=== PATIENT | male | born 1975 | race American Indian/Alaskan Native ===

== ENCOUNTER 2016-04-23 09:07 | Outpatient (CLI) | payer MEDICAID ==
[2016-04-23] MEDS ORDERED: XYLOCAINE TOPICAL 4% TP ONE ×2 (09:15→13:00)
== END 2016-04-23 09:08 | disposition home or self-care (01) ==
LOC: WOUND 09:07
PROVIDERS: ATTEND Internal Medicine
DX: L73.2 Hidradenitis suppurativa (principal); E11.9 Type 2 diabetes mellitus without complications; I10 Essential (primary) hypertension
CPT/HCPCS: 99215; G0463

== ENCOUNTER 2016-04-30 12:57 | Outpatient (CLI) | payer MEDICAID ==
[2016-04-30] MEDS ORDERED: XYLOCAINE TOPICAL 4% TP ONE (13:04)
== END 2016-04-30 12:58 | disposition home or self-care (01) ==
LOC: WOUND 12:57
PROVIDERS: ATTEND Internal Medicine
DX: S41.101D Unspecified open wound of right upper arm, subsequent encounter (principal); S41.102D Unspecified open wound of left upper arm, subsequent encounter; L73.2 Hidradenitis suppurativa; E08.8 Diabetes mellitus due to underlying condition with unspecified complications; E08.35 Diabetes mellitus due to underlying condition with proliferative diabetic retinopathy; D50.8 Other iron deficiency anemias; E11.22 Type 2 diabetes mellitus with diabetic chronic kidney disease; I12.9 Hypertensive chronic kidney disease with stage 1 through stage 4 chronic kidney disease, or unspecified chronic kidney disease; N18.3 Chronic kidney disease, stage 3 (moderate); X58.XXXD Exposure to other specified factors, subsequent encounter
CPT/HCPCS: 99214; G0463

== ENCOUNTER 2017-01-31 02:43 | Inpatient (IN) | payer MEDICAID, OTHER ==
[2017-01-31 03:56] LABS: Bacteria,Urine 1+ /HPF (Negative); Bilirubin,Urine NEG (Negative); Blood,Urine SM (Negative); Ketones,Urine NEG (Negative); Leukocyte Esterase,Urine MOD (Negative); Mucus,Urine FEW /HPF; Nitrite,Urine NEG (Negative)
[2017-01-31 04:00] LABS: Basophils % (Auto) 0.4 % (0.0-1.8); Eosinophils % (Auto) 1.8 % (0.0-4.3); Mean Corpuscular HGB Conc 31 % (32-34); Platelet Count 490 K/mm3 (140-440); Red Blood Count 2.47 M/mm3 (3.65-5.03); White Blood Count 13.9 K/mm3 (4.5-11.0)
[2017-01-31 04:12] LABS: Mean Corpuscular Hemoglobin 21 pg (28-32); Mean Corpuscular Volume 67 fl (84-94); Red Cell Distribution Width 20.2 % (13.2-15.2)
[2017-01-31 04:14] LABS: Hematocrit 16.7 % (35.5-45.6); Hemoglobin 5.1 gm/dl (11.8-15.2)
[2017-01-31 04:20] LABS: Calcium 7.8 mg/dL (8.4-10.2); Potassium 3.8 mmol/L (3.6-5.0)
[2017-01-31] MEDS ORDERED: DILAUDID IV ONE (08:12)
[2017-01-31] MEDS ORDERED: ZOFRAN IV ONE (08:12)
[2017-01-31] MEDS ORDERED: NACL 0.9% 500 ML 500 ML IV ONE ×2 (08:13→18:00)
[2017-01-31] MEDS ORDERED: VANCOMYCIN/NS 1 GM/250 ML 1 GM/250 ML BAG IV ONE (08:14)
[2017-01-31] MEDS ORDERED: HCTZ PO ONE (08:14)
[2017-01-31] MEDS ORDERED: NORVASC PO ONE (08:14)
[2017-01-31] MEDS ORDERED: ZOSYN/NS 4.5GM/100ML 4.5 GM/100 ML VIAL IV ONE (08:14)
--- NOTE | 2017-01-31 08:20 | Emergency Department Report ---
ED General Adult HPI - General Chief complaint: Chest Pain Stated complaint: CP Time Seen by Provider: 01/31/17 07:02 Source: patient, old records reviewed (patient was treated with vancomycin and Zosyn status post ID consults April 2016. Creatinine 2.3 in April 2016) Mode of arrival: Ambulatory Limitations: Other - History of Present Illness Initial comments: 42-year-old male with past medical history of insulin-dependent diabetes, renal insufficiency, hypertension, elevated cholesterol, and iron deficiency anemia presents complaining of worsening in his chronic hidradenitis to both eczema, left chest wall, and groin/inguinal area. Patient complained of tiredness and fatigue today only. Pain to his skin wounds weight is 7/10 intensity, constant , worse with palpation and movement. Patient is also been out of his blood pressure medication for a couple of days. Patient was admitted here April for similar symptoms and was treated with vancomycin and Zosyn as per medical record review. No reports of fever. Patient also complains of lower extremity edema and states he typically takes a BP medication with a diuretic. - Related Data Previous Rx's Medication Instructions Recorded Last Taken Type ALBUTEROL NEB's [Proventil 0.083% 2.5 mg IH Q3HRT PRN #2 nebu 04/27/16 Unknown Rx NEBS] Bisacodyl [Dulcolax suppos] 10 mg [place] QDAY PRN #30 supp.rect 04/27/16 Unknown Rx Calcium Acetate/Aluminum Sulf 1 each TP TID #30 packet 04/27/16 Unknown Rx [[place] Packet] Carvedilol [Coreg] 12.5 mg PO BID #30 tablet 04/27/16 Unknown Rx Ferrous Sulfate [Feosol 325 MG tab] 325 mg PO BID #60 tablet 04/27/16 Unknown Rx Insulin NPH/Regular [NovoLIN 70/30] 10 unit SUB-Q BIDDIAB #100 units 04/27/16 Unknown Rx Simvastatin [Zocor TAB] 10 mg PO QHS #30 tablet 04/27/16 Unknown Rx amLODIPine [Norvasc] 10 mg PO QDAY #30 tablet 04/27/16 Unknown Rx Allergies Allergy/AdvReac Type Severity Reaction Status Date / Time No Known Allergies Allergy Verified 10/14/14 17:03 ED Review of Systems ROS: Stated complaint: CP Other details as noted in HPI Comment: All other systems reviewed and negative Other: Constitutional: No fevers chills Eyes: No eye pain visual changes ENT: No ear pain or throat pain Neck: Denies pain Respiratory: Denies cough wheezing shortness of breath Cardiovascular: Chest pain secondary to skin hydroadenitis GI: Denies abdominal pain, nausea, vomiting, diarrhea, denies melena or hematochezia : Denies dysuria Musculoskeletal: Denies back pain Skin: As per HPI Neurologic: Denies headache, numbness, weakness Psychiatric: Denies suicidal ideation, hallucinations ED Past Medical Hx - Past Medical History Previous Medical History?: Yes Hx Hypertension: Yes Hx Diabetes: Yes Hx Renal Disease: Yes Additional medical history: 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 Iron deficiency anemia - Surgical History Past Surgical History?: Yes Additional Surgical History: eye SX 2015 - Social History Smoking Status: Never Smoker Substance Use Type: None - Medications Home Medications: Home Medications Medication Instructions Recorded Confirmed Last Taken Type ALBUTEROL NEB's [Proventil 0.083% 2.5 mg IH Q3HRT PRN #2 nebu 04/27/16 01/31/17 Unknown Rx NEBS] Bisacodyl [Dulcolax suppos] 10 mg [place] QDAY PRN #30 supp.rect 04/27/16 01/31/17 Unknown Rx Calcium Acetate/Aluminum Sulf 1 each TP TID #30 packet 04/27/16 01/31/17 Unknown Rx [[place] Packet] Carvedilol [Coreg] 12.5 mg PO BID #30 tablet 04/27/16 01/31/17 Unknown Rx Ferrous Sulfate [Feosol 325 MG tab] 325 mg PO BID #60 tablet 04/27/16 01/31/17 Unknown Rx Insulin NPH/Regular [NovoLIN 70/30] 10 unit SUB-Q BIDDIAB #100 units 04/27/16 Unknown Rx Simvastatin [Zocor TAB] 10 mg PO QHS #30 tablet 04/27/16 01/31/17 Unknown Rx amLODIPine [Norvasc] 10 mg PO QDAY #30 tablet 04/27/16 01/31/17 Unknown Rx ED Physical Exam - General Limitations: Other - Other Other exam information: General: No limitations, patient is alert in no acute distress Head exam: Atraumatic, normocephalic Eyes exam: Normal appearance ENT: Moist mucous membrane, normal oropharynx Neck exam: Normal inspection, full range of motion, no meningismus nontender Respiratory exam: Clear to auscultation bilateral, no wheezes, rales, crackles Cardiovascular: Mild tachycardia regular rhythm Abdomen: Soft, nondistended, and nontender, with normal bowel sounds, no rebound, or guarding Extremity: Full range of motion normal inspection no deformity, lower extremity edema Neurologic: Alert, oriented x3, cranial nerves intact, no motor or sensory deficit Psychiatric: normal affect, normal mood Skin: Hidradenitis with purulent wound drainage to bilateral axilla. Hidradenitis with bloody drainage to scrotal and inguinal area ED Course Vital Signs 01/31/17 03:01 Temperature 97.5 F L Pulse Rate 114 H Respiratory 18 Rate Blood Pressure 167/104 O2 Sat by Pulse 100 Oximetry - Reevaluation(s) Reevaluation #1: 01/31/17 08:20 Patient treated with pain medications ED Medical Decision Making - Lab Data Result diagrams: 01/31/17 03:23 01/31/17 03:23 Lab Results 01/31/17 01/31/17 01/31/17 Range/Units 03:23 03:23 03:27 WBC 13.9 H (4.5-11.0) K/mm3 RBC 2.47 L (3.65-5.03) M/mm3 Hgb 5.1 L* (11.8-15.2) gm/dl Hct 16.7 L* (35.5-45.6) % MCV 67 L (84-94) fl MCH 21 L (28-32) pg MCHC 31 L (32-34) % RDW 20.2 H (13.2-15.2) % Plt Count 490 H (140-440) K/mm3 Lymph % (Auto) 14.0 (13.4-35.0) % [place] % (Auto) 4.8 (0.0-7.3) % Eos % (Auto) 1.8 (0.0-4.3) % Baso % (Auto) 0.4 (0.0-1.8) % Lymph # 1.9 (1.2-5.4) K/mm3 [place] # 0.7 (0.0-0.8) K/mm3 Eos # 0.3 (0.0-0.4) K/mm3 Baso # 0.1 (0.0-0.1) K/mm3 Seg Neutrophils % 79.0 H (40.0-70.0) % Seg Neutrophils # 11.0 H (1.8-7.7) K/mm3 Sodium 141 (137-145) mmol/L Potassium 3.8 (3.6-5.0) mmol/L Chloride 103.0 (98-107) mmol/L Carbon Dioxide 23 (22-30) mmol/L Anion Gap 19 mmol/L BUN 14 (9-20) mg/dL Creatinine 2.8 H (0.8-1.5) mg/dL Estimated GFR 31 ml/min BUN/Creatinine Ratio 5 % Glucose 160 H (75-100) mg/dL Calcium 7.8 L (8.4-10.2) mg/dL Troponin T 0.031 H (0.00-0.029) ng/mL Urine Color Yellow (Yellow) Urine Turbidity Clear (Clear) Urine pH 6.0 (5.0-7.0) Ur Specific [place] 1.013 (1.003-1.030) Urine Protein 100 mg/dl (Negative) mg/dL Urine Glucose (UA) 50 (Negative) mg/dL Urine Ketones Neg (Negative) mg/dL Urine Blood Sm (Negative) Urine Nitrite Neg (Negative) Urine Bilirubin Neg (Negative) Urine Urobilinogen 2.0 (<2.0) mg/dL Ur Leukocyte Esterase Mod (Negative) Urine WBC (Auto) 33.0 H (0.0-6.0) /HPF Urine RBC (Auto) 16.0 (0.0-6.0) /HPF U Epithel Cells (Auto) < 1.0 (0-13.0) /HPF Urine Bacteria (Auto) 1+ (Negative) /HPF Amorphous Crystals Few Hyaline Casts 1 /LPF Urine Mucus Few /HPF 01/31/ Range/Units 06:03 WBC (4.5-11.0) K/mm3 RBC (3.65-5.03) M/mm3 Hgb (11.8-15.2) gm/dl Hct (35.5-45.6) % MCV (84-94) fl MCH (28-32) pg MCHC (32-34) % RDW (13.2-15.2) % Plt Count (140-440) K/mm3 Lymph % (Auto) (13.4-35.0) % [place] % (Auto) (0.0-7.3) % Eos % (Auto) (0.0-4.3) % Baso % (Auto) (0.0-1.8) % Lymph # (1.2-5.4) K/mm3 [place] # (0.0-0.8) K/mm3 Eos # (0.0-0.4) K/mm3 Baso # (0.0-0.1) K/mm3 Seg Neutrophils % (40.0-70.0) % Seg Neutrophils # (1.8-7.7) K/mm3 Sodium (137-145) mmol/L Potassium (3.6-5.0) mmol/L Chloride (98-107) mmol/L Carbon Dioxide (22-30) mmol/L Anion Gap mmol/L BUN (9-20) mg/dL Creatinine (0.8-1.5) mg/dL Estimated GFR ml/min BUN/Creatinine Ratio % Glucose (75-100) mg/dL Calcium (8.4-10.2) mg/dL Troponin T 0.023 (0.00-0.029) ng/mL Urine Color (Yellow) Urine Turbidity (Clear) Urine pH (5.0-7.0) Ur Specific [place] (1.003-1.030) Urine Protein (Negative) mg/dL Urine Glucose (UA) (Negative) mg/dL Urine Ketones (Negative) mg/dL Urine Blood (Negative) Urine Nitrite (Negative) Urine Bilirubin (Negative) Urine Urobilinogen (<2.0) mg/dL Ur Leukocyte Esterase (Negative) Urine WBC (Auto) (0.0-6.0) /HPF Urine RBC (Auto) (0.0-6.0) /HPF U Epithel Cells (Auto) (0-13.0) /HPF Urine Bacteria (Auto) (Negative) /HPF Amorphous Crystals Hyaline Casts /LPF Urine Mucus /HPF - EKG Data -: EKG Interpreted by Me (sinus ) EKG shows normal: sinus rhythm, axis (qrs -13), QRS complexes (78), ST-T waves ( no stemi/t inv) Rate: tachycardia (107) - Medical Decision Making Patient presents to the hospital for IV antibiotics. Also requires blood transfusion for symptomatic anemia likely secondary to iron noncompliance and acute blood loss from wounds. Possible surgical consult and ID consult may be indicated. Meds received in the ED vancomycin, Zosyn, 2 units PRBC orderd, Dilaudid, and Zofran. Norvasc and hydrochlorothiazide order for hypertension - Differential Diagnosis cellulitis, abscess, hidradenitis, iron deficiency anemia Critical Care Time: No Critical care attestation.: If time is entered above; I have spent that time in minutes in the direct care of this critically ill patient, excluding procedure time. ED Disposition Clinical Impression: Hidradenitis suppurativa, Chronic renal insufficiency, Symptomatic anemia, Iron deficiency anemia, Insulin dependent diabetes mellitus, Hypertension, Noncompliance with medication regimen Disposition: OP ADMIT IP TO THIS HOSP Is pt being admited?: Yes Condition: Stable Referrals: PRIMARY CARE, [Primary Care Provider] - 3-5 Days Time of Disposition: 08:23 (Dr. Cates/hospitalist)
[2017-01-31] MEDS ORDERED: VANCOMYCIN 2,000 MG in NACL 0.9% 500 ML 500 ML IV SCH (09:00)
[2017-01-31] MEDS ORDERED: VANCOMYCIN 2,000 MG in NACL 0.9% 500 ML 500 ML IV ONE ×2 (09:00→19:15)
[2017-01-31] MEDS ORDERED: DULCOLAX PR PRN (09:42)
[2017-01-31] MEDS ORDERED: PROVENTIL IH PRN (09:42)
--- NOTE | 2017-01-31 09:44 | History and Physical Report ---
History of Present Illness Date of examination: 01/31/17 Chief complaint: Bleeding from from the perianal area History of present illness: 42-year-old -[place] male with past medical history significant for diabetes mellitus, hypertension, CKD, hirnadenitis suppurativa presented to the emergency department complaining of bleeding from hirnadenitis suppurativa, perianal area. Bleeding is massive and it decreased his hemoglobin to 5.1. Patient is also complaining weakness, tiredness but denied cough, chest pain, shortness of breath. Patient is complaining pain from the site 7 out of 10 in intensity, constant with no radiation. Patient denied fever or chills. Patient had hirnadenitis suppurativa on bilateral arm pits and left chest, but the one on the perianal area started a month ago. Patient was admitted here previously for hirnadenitis suppurativa and was treated with IV antibiotics and surgery had evaluated as a time. Patient is noncompliant with his medications, ran out of his blood pressure medication for the last 2 days, and been off insulin because his blood sugar has been usually within normal limits. Patient also complains of bilateral leg swelling. REVIEW OF SYSTEMS: GENERAL: + weight change, + fatigue, no fever HEAD: no head ache EYES: no blurry vision, no acute visual loss EARS: no hearing loss, no discharge, no earache NOSE: no stuffiness, no sneezing, no discharge MOUTH, THROAT AND NECK: no bleeding gums, no sore throat, no swollen neck CARDIAC: no palpitations, no dyspnea on exertion, no orthopnea, no PND, no edema , no chest pain RESPIRATORY: no shortness of breath, no wheeze, no cough, no sputum, no hemoptysis, no asthma GI: no decreased appetite, no nausea, no vomiting, no dysphagia, no diarrhea, no constipation, no abdominal pain URINARY: no change in frequency, no urgency, no polyuria, no hematuria, no incontinence MUSCULOSKELETAL: no muscle weakness, no pain, no joint stiffness NEUROLOGIC: no loss of sensation/numbness, no tingling, no tremors, no weakness/ paralysis HEMATOLOGIC: + anemia, no easy bruising SKIN: no rashes ENDOCRINE: no heat/cold intolerance, no polyuria, no polydipsia, no thyroid problems, + diabetes PSYCHIATRIC: no anxiety, no depression, no suicidal ideations Past History Past Medical History: diabetes, hypertension, other (Hirnadenitis) Past Surgical History: Other (eye surgery) Social history: full code. denies: smoking, alcohol abuse, prescription drug abuse, IV drug use Family history: no significant family history Medications and Allergies Allergies Allergy/AdvReac Type Severity Reaction Status Date / Time No Known Allergies Allergy Verified 10/14/14 17:03 Home Medications Medication Instructions Recorded Confirmed Last Taken Type ALBUTEROL NEB's [Proventil 0.083% 2.5 mg IH Q3HRT PRN #2 nebu 04/27/16 01/31/17 Unknown Rx NEBS] Bisacodyl [Dulcolax suppos] 10 mg [place] QDAY PRN #30 supp.rect 04/27/16 01/31/17 Unknown Rx Calcium Acetate/Aluminum Sulf 1 each TP TID #30 packet 04/27/16 01/31/17 Unknown Rx [[place] Packet] Carvedilol [Coreg] 12.5 mg PO BID #30 tablet 04/27/16 01/31/17 Unknown Rx Ferrous Sulfate [Feosol 325 MG tab] 325 mg PO BID #60 tablet 04/27/16 01/31/17 Unknown Rx Insulin NPH/Regular [NovoLIN 70/30] 10 unit SUB-Q BIDDIAB #100 units 04/27/16 Unknown Rx Simvastatin [Zocor TAB] 10 mg PO QHS #30 tablet 04/27/16 01/31/17 Unknown Rx amLODIPine [Norvasc] 10 mg PO QDAY #30 tablet 04/27/16 01/31/17 Unknown Rx Active Meds: Active Medications Albuterol (Proventil) 2.5 mg IH Q3HRT PRN PRN Reason: Shortness Of Breath Aluminum Sulfate/Calcium Acetate ([place] Packet) 1 each TP TID TIARA Amlodipine Besylate (Norvasc) 10 mg PO QDAY TIARA Bisacodyl (Dulcolax) 10 mg [place] QDAY PRN PRN Reason: Constipation unrelieved by MOM Carvedilol (Coreg) 12.5 mg PO BID TIARA Ferrous Sulfate (Feosol) 325 mg PO BID TIARA Vancomycin HCl 2,000 mg/ (Sodium Chloride) 520 mls @ 250 mls/hr IV ONCE.ED ONE Stop: 01/31/17 11:04 Piperacillin Sod/Tazobactam Sod (Zosyn/Ns 4.5gm/100ml) 4.5 gm in 100 mls @ 200 mls/hr IV Q6HR TIARA PRN Reason: Protocol Insulin Human Isoph/Insulin Regular (Novolin 70/30) 10 unit SUB-Q BIDDIAB TIARA Miscellaneous Medication (Simvastatin) 10 mg PO QHS TIARA Vancomycin HCl (Vancomycin Pharmacy To Dose) 1 each IV PKCONSULT TIARA PRN Reason: Protocol Exam - Physical Exam Narrative exam: Not in cardiopulmonary distress. The patient appeared well nourished and normally developed. Vital signs as documented. Head exam is unremarkable. No scleral icterus . Neck is without jugular venous distension, thyromegaly, or carotid bruits. Lungs are clear to auscultation. Cardiac exam reveals regular rate and Rhythm. First and second heart sounds normal. No murmurs, rubs or gallops. Abdominal exam reveals normal bowel sounds, no masses, no organomegaly and no aortic enlargement. Extremities +2 pretibial edema. Skin: pus draining ulcers on bilateral arm pits on the left chest, bleeding hirnadenitis on the perianal area, the diaper is blood soaked. MARKET DEVELOPMENT DIRECTOR: Alert and oriented 3. No focal weakness. - Constitutional Vitals: Temp Pulse Resp BP Pulse Ox 98.4 F 106 H 15 184/108 100 01/31/17 07:30 01/31/17 09:08 01/31/17 07:30 01/31/17 09:08 01/31/17 07:30 Results - Labs CBC & Chem 7: 01/31/17 03:23 01/31/17 03:23 Labs: Laboratory Last Values WBC 13.9 K/mm3 (4.5-11.0) H 01/31/17 03:23 RBC 2.47 M/mm3 (3.65-5.03) L 01/31/17 03:23 Hgb 5.1 gm/dl (11.8-15.2) L* 01/31/17 03:23 Hct 16.7 % (35.5-45.6) L* 01/31/17 03:23 MCV 67 fl (84-94) L 01/31/17 03:23 MCH 21 pg (28-32) L 01/31/17 03:23 MCHC 31 % (32-34) L 01/31/17 03:23 RDW 20.2 % (13.2-15.2) H 01/31/17 03:23 Plt Count 490 K/mm3 (140-440) H 01/31/17 03:23 Lymph % (Auto) 14.0 % (13.4-35.0) 01/31/17 03:23 [place] % (Auto) 4.8 % (0.0-7.3) 01/31/17 03:23 Eos % (Auto) 1.8 % (0.0-4.3) 01/31/17 03:23 Baso % (Auto) 0.4 % (0.0-1.8) 01/31/17 03:23 Lymph # 1.9 K/mm3 (1.2-5.4) 01/31/17 03:23 [place] # 0.7 K/mm3 (0.0-0.8) 01/31/17 03:23 Eos # 0.3 K/mm3 (0.0-0.4) 01/31/17 03:23 Baso # 0.1 K/mm3 (0.0-0.1) 01/31/17 03:23 Seg Neutrophils % 79.0 % (40.0-70.0) H 01/31/17 03:23 Seg Neutrophils # 11.0 K/mm3 (1.8-7.7) H 01/31/17 03:23 Sodium 141 mmol/L (137-145) 01/31/17 03:23 Potassium 3.8 mmol/L (3.6-5.0) 01/31/17 03:23 Chloride 103.0 mmol/L (98-107) 01/31/17 03:23 Carbon Dioxide 23 mmol/L (22-30) 01/31/17 03:23 Anion Gap 19 mmol/L 01/31/17 03:23 BUN 14 mg/dL (9-20) 01/31/17 03:23 Creatinine 2.8 mg/dL (0.8-1.5) H 01/31/17 03:23 Estimated GFR 31 ml/min 01/31/17 03:23 BUN/Creatinine Ratio 5 % 01/31/17 03:23 Glucose 160 mg/dL (75-100) H 01/31/17 03:23 POC Glucose 122 (70-105) H 01/31/17 08:48 Calcium 7.8 mg/dL (8.4-10.2) L 01/31/17 03:23 Troponin T 0.023 ng/mL (0.00-0.029) 01/31/17 06:03 Urine Color Yellow (Yellow) 01/31/17 03:27 Urine Turbidity Clear (Clear) 01/31/17 03:27 Urine pH 6.0 (5.0-7.0) 01/31/17 03:27 Ur Specific [place] 1.013 (1.003-1.030) 01/31/17 03:27 Urine Protein 100 mg/dl mg/dL (Negative) 01/31/17 03:27 Urine Glucose (UA) 50 mg/dL (Negative) 01/31/17 03:27 Urine Ketones Neg mg/dL (Negative) 01/31/17 03:27 Urine Blood Sm (Negative) 01/31/17 03:27 Urine Nitrite Neg (Negative) 01/31/17 03:27 Urine Bilirubin Neg (Negative) 01/31/17 03:27 Urine Urobilinogen 2.0 mg/dL (<2.0) 01/31/17 03:27 Ur Leukocyte Esterase Mod (Negative) 01/31/17 03:27 Urine WBC (Auto) 33.0 /HPF (0.0-6.0) H 01/31/17 03:27 Urine RBC (Auto) 16.0 /HPF (0.0-6.0) 01/31/17 03:27 U Epithel Cells (Auto) < 1.0 /HPF (0-13.0) 01/31/17 03:27 Urine Bacteria (Auto) 1+ /HPF (Negative) 01/31/17 03:27 Amorphous Crystals Few 01/31/17 03:27 Hyaline Casts 1 /LPF 01/31/17 03:27 Urine Mucus Few /HPF 01/31/17 03:27 Blood Type O POSITIVE 01/31/17 08:25 Antibody Screen Negative 01/31/17 08:25 Crossmatch See Detail 01/31/17 08:25 Assessment and Plan Assessment and plan: Severe anemia secondary to bleeding from hirnadenitis suppurativa Hirnadenitis suppurativa Sepsis Uncontrolled hypertension Diabetes mellitus diet controlled Chronic kidney disease - Patient is on IV vancomycin and Zosyn - ID consulted, surgery consulted, nephrology consulted - I have discussed with vascular surgery and recommended - accu check - Blood transfusions, f/u h&h q6hrs DVT - SCDs Disposition - Admit to telemetry floor. Advance Directives: Yes VTE prophylaxis?: Mechanical Reason for no VTE Prophylaxis: Bleeding Plan of care discussed with patient/family: Yes
[2017-01-31] MEDS ORDERED: VANCOMYCIN PHARMACY TO DOSE IV SCH (10:00)
[2017-01-31] MEDS ORDERED: VANCOMYCIN 1,500 MG in NACL 0.9% 500 ML 500 ML IV SCH (10:45)
[2017-01-31] MEDS: NORVASC PO SCH (11:43)
[2017-01-31] MEDS: MORPHINE IV PRN ×2 (14:49→21:47)
[2017-01-31] MEDS: COREG PO SCH ×2 (14:51→21:43)
[2017-01-31] MEDS: FEOSOL PO SCH ×2 (15:17→21:46)
[2017-01-31] MEDS: DOMEBORO PACKET TP SCH ×2 (15:17→21:47)
[2017-01-31 15:37] LABS: Hematocrit 16.3 % (35.5-45.6)
[2017-01-31] MEDS: ZOSYN/NS 4.5GM/100ML 4.5 GM/100 ML VIAL IV SCH (19:41)
[2017-01-31] MEDS: PRAVACHOL PO SCH (21:46)
[2017-01-31] MEDS ORDERED: NON-FORMULARY (Simvastatin 10 MG) PO SCH (22:00)
--- NOTE | 2017-01-31 22:19 | Consultation ---
REASON FOR CONSULTATION: This consultation was done for Dr. Gaytan. I was asked to see this young man. He is a 42-year-old black male. He is a known case of diabetes mellitus. He is on insulin for that over the last 7 years. The patient also has severe right diabetic retinopathy with no vision on his right eye. HISTORY OF PRESENT ILLNESS: The patient was seen in the ER this collar runner because of massive bleeding. According to our ER physician from his right groin area. He is a known case of hidradenitis suppurativa involving both inguinal creases and both armpits. It seemed that he is not taking good care of himself because of that and the bleeding started according to his girlfriend last night and it was a fairly good amount of bleeding. This prompted them to be seen in the Emergency Room. He was a known case of hidradenitis suppurativa. He was admitted about 6 months ago for the same and he was on antibiotics at that point. The patient did not pursue that further. Although, he was told from what I could tell that he needed surgery. Along with that, the patient had bilateral edema of his both legs from the mid leg down. To me, it is a stage II edema. The patient has no children. He lives by himself with his girlfriend. From what I could tell, he told me that he never had any surgery in the past. According to him, also this has been going on for quite a while, but the one on his right inguinal crease is new. ALLERGIES: Allergic reaction was denied. MEDICATIONS: He is on insulin for that. From what I could tell, he is not taking these on a regular basis. Although, he has an MD, who is handling this situation. PHYSICAL EXAMINATION: GENERAL: Showed well-preserved young black male who is in no distress. He is very sociable. HEAD AND NECK: Essentially negative. NECK: Supple. CHEST: Essentially clear. HEART: Sound normal. There is evidence of purulent material coming from both of the armpits with a small sinuses, each is about 2-3 mm. On the right inguinal area, there is some bleeding. Apparently, this was taken care of for in the Emergency Room with a bandage in the area. On the left side, there is no evidence of any bleeding. IMPRESSION: At this point, he is supposed to have 2 units of packed cells. He had one already, he is going to have the second one. He is a known case of congestive heart failure. We are going to have Tile Applicator to evaluate him to clear him for surgery. Eventually, he will need to have the bleeding area explored and examined, and to control the bleeding. I did indicate to him that we may need to leave the wound open and we will try to have this done tomorrow after all these tests and studies are being done. JOB# [id number] STEW/SORAIDA REYNOSO
[2017-02-01] MEDS: APRESOLINE IV PRN ×3 (00:48→22:08)
[2017-02-01] MEDS: ZOSYN/NS 4.5GM/100ML 4.5 GM/100 ML VIAL IV SCH ×3 (01:53→18:40)
[2017-02-01] MEDS ORDERED: LASIX IV ONE (03:50)
[2017-02-01 06:14] LABS: Basophils % (Auto) 0.5 % (0.0-1.8); Eosinophils % (Auto) 2.6 % (0.0-4.3); Hematocrit 22.3 % (35.5-45.6); Hemoglobin 7.3 gm/dl (11.8-15.2); Mean Corpuscular HGB Conc 33 % (32-34); Mean Corpuscular Volume 73 fl (84-94); Platelet Count 355 K/mm3 (140-440); Red Blood Count 3.05 M/mm3 (3.65-5.03); White Blood Count 13.8 K/mm3 (4.5-11.0)
[2017-02-01 06:17] LABS: Mean Corpuscular Hemoglobin 24 pg (28-32); Red Cell Distribution Width 22.2 % (13.2-15.2)
[2017-02-01] MEDS: DOMEBORO PACKET TP SCH ×3 (08:46→22:02)
[2017-02-01 08:51] LABS: Hematocrit 23.2 % (35.5-45.6); Hemoglobin 7.5 gm/dl (11.8-15.2)
[2017-02-01 09:03] LABS: Calcium 7.8 mg/dL (8.4-10.2); Chloride 104.5 mmol/L (98-107); Potassium 3.7 mmol/L (3.6-5.0)
[2017-02-01] MEDS: FEOSOL PO SCH ×2 (09:36→22:00)
[2017-02-01] MEDS: NORVASC PO SCH (09:37)
[2017-02-01] MEDS: COREG PO SCH ×2 (09:37→22:02)
[2017-02-01] MEDS ORDERED: VANCOMYCIN 1,500 MG in NACL 0.9% 500 ML 500 ML IV SCH ×3 (10:00)
--- NOTE | 2017-02-01 10:09 | Consultation ---
History of Present Illness - History of Present Illness Thank you for the consultation Patient was evaluated today My assessment and plan are as follows Chronic kidney disease, current creatinine around 2.8 2.9 range in the past creatinine has been elevated since April 2016 2.3 2.5 range Patient is at risk for progression of renal failure over time to end-stage renal disease Severe anemia requiring packed red blood cell transfusion and further workup Hypertension: Monitor blood pressure keep under 140 systolic Hypocalcemia post packed red blood cell transfusion likely due to citrate oral calcium replacement can be considered, Significant pyuria please consider urine culture Dietary counseling and education was done for chronic kidney disease care Will need follow-up in the office upon discharge We'll continue to follow and make recommendation from renal standpoint Thank you for the consultation patient was evaluated today. Source of information; patient himself current records were also reviewed History of presenting illness; Patient is a 42-year-old -[place] male who has known history of chronic kidney disease Baseline creatinine is slightly above 2. Patient has been admitted this time with severe anemia. Patient does not use any follow-up nonsteroidal medication he does remember seeing us in the past but has not been able to make an appointment due to insurance issues. He presented to the hospital with complaints of worsening swelling of both lower extremity and chronic hiradenitis . He had been complaining of chronic fatigue weakness and pain. Upon arrival his creatinine was 2.8 bicarbonate 23 potassium 3.8 hemoglobin was 5.1. Blood pressure was elevated in 160s range. patient has been having issues with lesions in his groin as well as armpit area chronically for which she was seen by Dr. hayden in the past Patient does have multiple risk factors for underlying chronic kidney disease and progression including poor eating habit hypertension diabetes etc. No definite history of any hematuria or proteinuria. No history of any urinary frequency urgency burning. Past medical history is significant for chronic kidney disease Chronic edema Diabetes mellitus Hypertension Allergies: no known drug allergies Social history: denies any history of recreational drug or substance abuse Family history:noncontributory for renal lipid disorder Review of system is positive for weakness fatigue poor appetite pain scale lesions Complete review of systems obtained pertinent positive above mother's review of systems negative Physical examination General: No acute distress HEENT: Oral mucosa moist no pharyngeal erythema no pallor or icterus no uremic order Neck: Supple no evidence of any thyromegaly trachea midline no JVD Chest: Clear to auscultation no crackles are also wheezes anteriorly Heart: Regular rate and rhythm S1-S2 heard no S3-S4 Abdomen: Soft nontender no renal bruit no CVA tenderness no suprapubic fullness no organomegaly Extremity: moderate edema dry skin no peripheral cyanosis pulses palpable Neurological: Alert awake follows command grossly nonfocal examination Back: Nontender thoracolumbar spine Musculoskeletal: No joint effusion noted Skin: patient has significant edema changes of chronic skin lesions noted Past History Past Medical History: diabetes, hypertension, other (Hirnadenitis) Past Surgical History: Other (eye surgery) Social history: full code. denies: smoking, alcohol abuse, prescription drug abuse, IV drug use Family history: no significant family history Medications and Allergies Allergies Allergy/AdvReac Type Severity Reaction Status Date / Time No Known Allergies Allergy Verified 10/14/14 17:03 Home Medications Medication Instructions Recorded Confirmed Last Taken Type ALBUTEROL NEB's [Proventil 0.083% 2.5 mg IH Q3HRT PRN #2 nebu 04/27/16 01/31/17 Unknown Rx NEBS] Bisacodyl [Dulcolax suppos] 10 mg [place] QDAY PRN #30 supp.rect 04/27/16 01/31/17 Unknown Rx Calcium Acetate/Aluminum Sulf 1 each TP TID #30 packet 04/27/16 01/31/17 Unknown Rx [[place] Packet] Carvedilol [Coreg] 12.5 mg PO BID #30 tablet 04/27/16 01/31/17 Unknown Rx Ferrous Sulfate [Feosol 325 MG tab] 325 mg PO BID #60 tablet 04/27/16 01/31/17 Unknown Rx Insulin NPH/Regular [NovoLIN 70/30] 10 unit SUB-Q BIDDIAB #100 units 04/27/16 Unknown Rx Simvastatin [Zocor TAB] 10 mg PO QHS #30 tablet 04/27/16 01/31/17 Unknown Rx amLODIPine [Norvasc] 10 mg PO QDAY #30 tablet 04/27/16 01/31/17 Unknown Rx Active Meds: Active Medications Albuterol (Proventil) 2.5 mg IH Q3HRT PRN PRN Reason: Shortness Of Breath Aluminum Sulfate/Calcium Acetate ([place] Packet) 1 each TP TID [facility] Last Admin: 02/01/17 08:46 Dose: 1 each Amlodipine Besylate (Norvasc) 10 mg PO QDAY [facility] Last Admin: 02/01/17 09:37 Dose: 10 mg Bisacodyl (Dulcolax) 10 mg [place] QDAY PRN PRN Reason: Constipation unrelieved by MOM Carvedilol (Coreg) 12.5 mg PO BID [facility] Last Admin: 02/01/17 09:37 Dose: 12.5 mg Ferrous Sulfate (Feosol) 325 mg PO BID [facility] Last Admin: 02/01/17 09:36 Dose: 325 mg Hydralazine HCl (Apresoline) 10 mg IV Q4HR PRN PRN Reason: Elevated Blood Pressure Stop: 02/02/17 16:41 Last Admin: 02/01/17 08:27 Dose: 10 mg Piperacillin Sod/Tazobactam Sod (Zosyn/Ns 4.5gm/100ml) 4.5 gm in 100 mls @ 200 mls/hr IV Q8H [facility] PRN Reason: Protocol Last Admin: 02/01/17 09:51 Dose: 200 mls/hr Vancomycin HCl 1,500 mg/ (Sodium Chloride) 515 mls @ 333.333 mls/hr IV ONCE [facility] Stop: 02/01/17 12:00 Insulin Human Isoph/Insulin Regular (Novolin 70/30) 10 unit SUB-Q BIDDIAB [facility] Last Admin: 02/01/17 08:19 Dose: Not Given Morphine Sulfate (Morphine) 2 mg IV Q4H PRN PRN Reason: Pain, Moderate (4-6) Last Admin: 01/31/17 21:47 Dose: 2 mg Pravastatin Sodium (Pravachol) 20 mg PO QHS [facility] Last Admin: 01/31/17 21:46 Dose: 20 mg Vancomycin HCl (Vancomycin Pharmacy To Dose) 1 each IV PKCONSULT [facility] PRN Reason: Protocol Exam - Vital Signs Vital signs: Vital Signs Temp Pulse Resp BP Pulse Ox 97.5 F L 114 H 18 167/104 100 01/31/17 03:01 01/31/17 03:01 01/31/17 03:01 01/31/17 03:01 01/31/17 03:01 Results - Lab Results 02/01/17 08:10 02/01/17 08:43 Most recent lab results Calcium 7.8 mg/dL (8.4-10.2) L 11/26/17 08:43
[2017-02-01] MEDS ORDERED: NACL 0.9% 500 ML 500 ML IV ONE (14:35)
--- NOTE | 2017-02-01 14:38 | Progress Note ---
Subjective Narrative: Pt was scheduled for exploration of the Right inguinal crease exploration , [facility] , Dr Alaniz was called . will see PRN ,this was expressed to Pt and his friend , will see PRN , Objective Vital Signs - 12hr 02/01/17 02/01/17 02/01/17 03:01 03:33 08:17 Temperature 97.5 F L 98.5 F 99.3 F Pulse Rate 79 80 88 Respiratory 18 20 18 Rate Blood Pressure 156/94 175/100 187/111 O2 Sat by Pulse 97 98 97 Oximetry 02/01/17 02/01/17 02/01/17 08:27 09:37 13:58 Temperature Pulse Rate Respiratory 18 Rate Blood Pressure 187/111 173/105 O2 Sat by Pulse Oximetry - Labs 02/01/17 08:10 02/01/17 08:43 Diabetes panel 01/31/17 02/01/17 Range/Units 03:23 08:43 Sodium 141 (137-145) mmol/L Potassium 3.7 (3.6-5.0) mmol/L Chloride 104.5 (98-107) mmol/L Carbon Dioxide 24 (22-30) mmol/L BUN 15 (9-20) mg/dL Creatinine 2.9 H (0.8-1.5) mg/dL Glucose 81 (75-100) mg/dL Calcium 7.8 L (8.4-10.2) mg/dL Triglycerides 92 (2-149) mg/dL HDL Cholesterol 27 L (40-59) mg/dL Calcium panel 02/01/17 Range/Units 08:43 Calcium 7.8 L (8.4-10.2) mg/dL Pituitary panel 02/01/17 Range/Units 08:43 Sodium 141 (137-145) mmol/L Potassium 3.7 (3.6-5.0) mmol/L Chloride 104.5 (98-107) mmol/L Carbon Dioxide 24 (22-30) mmol/L BUN 15 (9-20) mg/dL Creatinine 2.9 H (0.8-1.5) mg/dL Glucose 81 (75-100) mg/dL Calcium 7.8 L (8.4-10.2) mg/dL Adrenal panel 02/01/17 Range/Units 08:43 Sodium 141 (137-145) mmol/L Potassium 3.7 (3.6-5.0) mmol/L Chloride 104.5 (98-107) mmol/L Carbon Dioxide 24 (22-30) mmol/L BUN 15 (9-20) mg/dL Creatinine 2.9 H (0.8-1.5) mg/dL Glucose 81 (75-100) mg/dL Calcium 7.8 L (8.4-10.2) mg/dL
--- NOTE | 2017-02-01 14:56 | Progress Note ---
Assessment and Plan Assessment and plan: Severe anemia secondary to bleeding from hirnadenitis suppurativa Hirnadenitis suppurativa Sepsis Uncontrolled hypertension Diabetes mellitus diet controlled Chronic kidney disease - Patient is on IV vancomycin and Zosyn - ID consulted, nephrology consulted - Patient refused to have surgery with Dr Monsivais, Dr Alaniz consulted and will evaluate him, Dr Gallego may see him tomorrow - I have discussed with vascular surgery and recommended - accu check - Blood transfusions, f/u h&h q6hrs DVT - SCDs Disposition - continue inpatient care. History Interval history: Patient was seen and evaluated this morning, bleeding stopped, patient refused to have surgery with Dr Monsivais. Hospitalist Physical - Physical exam Narrative exam: Not in cardiopulmonary distress. The patient appeared well nourished and normally developed. Vital signs as documented. Head exam is unremarkable. No scleral icterus . Neck is without jugular venous distension, thyromegaly, or carotid bruits. Lungs are clear to auscultation. Cardiac exam reveals regular rate and Rhythm. First and second heart sounds normal. No murmurs, rubs or gallops. Abdominal exam reveals normal bowel sounds, no masses, no organomegaly and no aortic enlargement. Extremities +2 pretibial edema. Skin: pus draining ulcers on bilateral arm pits on the left chest, bleeding hirnadenitis on the perianal area, the diaper is blood soaked. INSURANCE ADVISOR: Alert and oriented 3. No focal weakness. - Constitutional Vitals: Temp Pulse Resp BP Pulse Ox 99.3 F 88 18 173/105 97 02/01/17 08:17 02/01/17 08:17 02/01/17 13:58 02/01/17 09:37 02/01/17 08:17 Results - Labs CBC & Chem 7: 02/01/17 08:10 02/01/17 08:43 Labs: Laboratory Last Values WBC 13.8 K/mm3 (4.5-11.0) H 02/01/17 05:41 RBC 3.05 M/mm3 (3.65-5.03) L 02/01/17 05:41 Hgb 7.5 gm/dl (11.8-15.2) L 02/01/17 08:10 Hct 23.2 % (35.5-45.6) L 02/01/17 08:10 MCV 73 fl (84-94) L 02/01/17 05:41 MCH 24 pg (28-32) L 02/01/17 05:41 MCHC 33 % (32-34) 02/01/17 05:41 RDW 22.2 % (13.2-15.2) H 02/01/17 05:41 Plt Count 355 K/mm3 (140-440) 02/01/17 05:41 Lymph % (Auto) 14.6 % (13.4-35.0) 02/01/17 05:41 [place] % (Auto) 5.4 % (0.0-7.3) 02/01/17 05:41 Eos % (Auto) 2.6 % (0.0-4.3) 02/01/17 05:41 Baso % (Auto) 0.5 % (0.0-1.8) 02/01/17 05:41 Lymph # 2.0 K/mm3 (1.2-5.4) 02/01/17 05:41 [place] # 0.7 K/mm3 (0.0-0.8) 02/01/17 05:41 Eos # 0.4 K/mm3 (0.0-0.4) 02/01/17 05:41 Baso # 0.1 K/mm3 (0.0-0.1) 02/01/17 05:41 Seg Neutrophils % 76.9 % (40.0-70.0) H 02/01/17 05:41 Seg Neutrophils # 10.6 K/mm3 (1.8-7.7) H 02/01/17 05:41 Sodium 141 mmol/L (137-145) 02/01/17 08:43 Potassium 3.7 mmol/L (3.6-5.0) 02/01/17 08:43 Chloride 104.5 mmol/L (98-107) 02/01/17 08:43 Carbon Dioxide 24 mmol/L (22-30) 02/01/17 08:43 Anion Gap 16 mmol/L 02/01/17 08:43 BUN 15 mg/dL (9-20) 02/01/17 08:43 Creatinine 2.9 mg/dL (0.8-1.5) H 02/01/17 08:43 Estimated GFR 29 ml/min 02/01/17 08:43 BUN/Creatinine Ratio 5 % 02/01/17 08:43 Glucose 81 mg/dL (75-100) 02/01/17 08:43 POC Glucose 166 (70-105) H 02/01/17 12:03 Calcium 7.8 mg/dL (8.4-10.2) L 02/01/17 08:43 Troponin T 0.027 ng/mL (0.00-0.029) 01/31/17 08:54 Triglycerides 92 mg/dL (2-149) 01/31/17 03:23 Cholesterol 125 mg/dL (50-199) 01/31/17 03:23 LDL Cholesterol Direct 80 mg/dL (50-130) 01/31/17 03:23 HDL Cholesterol 27 mg/dL (40-59) L 01/31/17 03:23 Cholesterol/HDL Ratio 4.62 % 01/31/17 03:23 Urine Color Yellow (Yellow) 01/31/17 03:27 Urine Turbidity Clear (Clear) 01/31/17 03:27 Urine pH 6.0 (5.0-7.0) 01/31/17 03:27 Ur Specific [place] 1.013 (1.003-1.030) 01/31/17 03:27 Urine Protein 100 mg/dl mg/dL (Negative) 01/31/17 03:27 Urine Glucose (UA) 50 mg/dL (Negative) 01/31/17 03:27 Urine Ketones Neg mg/dL (Negative) 01/31/17 03:27 Urine Blood Sm (Negative) 01/31/17 03:27 Urine Nitrite Neg (Negative) 01/31/17 03:27 Urine Bilirubin Neg (Negative) 01/31/17 03:27 Urine Urobilinogen 2.0 mg/dL (<2.0) 01/31/17 03:27 Ur Leukocyte Esterase Mod (Negative) 01/31/17 03:27 Urine WBC (Auto) 33.0 /HPF (0.0-6.0) H 01/31/17 03:27 Urine RBC (Auto) 16.0 /HPF (0.0-6.0) 01/31/17 03:27 U Epithel Cells (Auto) < 1.0 /HPF (0-13.0) 01/31/17 03:27 Urine Bacteria (Auto) 1+ /HPF (Negative) 01/31/17 03:27 Amorphous Crystals Few 01/31/17 03:27 Hyaline Casts 1 /LPF 01/31/17 03:27 Urine Mucus Few /HPF 01/31/17 03:27 Blood Type O POSITIVE 01/31/17 08:25 Antibody Screen Negative 01/31/17 08:25 Crossmatch See Detail 01/31/17 08:25
--- NOTE | 2017-02-01 17:30 | Consultation ---
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 Patient reports he thinks he has some new lesions in the right groin, bleeding was copious and he became worried. Lesions in the left axilla are severe. He reports drainage of purulence from the left axilla. Denies any fever or chills, nausea, vomiting, diarrhea. Of note, he was admitted to [facility] in Apr [address] Fall due to same left axilary secondary infection, wound cultures grew MSSA, but previous outpatient wound cultures grew MRSA. In the emergency room, initial temperature was 97.5, heart rate 114, respiration 18, blood pressure 167/104. Initial white count 13.9. Hemoglobin 5.1. Creatinine 2.8. Urinalysis showed moderate leukocyte esterase and 33 white blood cells. Microbiology: Blood cultures: 01/31 ngtd Urine cultures: 01/31 pending Current Antimicrobials: Zosyn 01/31 Vancomycin 01/31 Previous Antimicrobials: Past History Past Medical History: diabetes, hypertension, other (Hirnadenitis) Past Surgical History: Other (eye surgery) Social history: full code. denies: smoking, alcohol abuse, prescription drug abuse, IV drug use Family history: no significant family history Medications and Allergies Allergies Allergy/AdvReac Type Severity Reaction Status Date / Time No Known Allergies Allergy Verified 10/14/14 17:03 Home Medications Medication Instructions Recorded Confirmed Last Taken Type ALBUTEROL NEB's [Proventil 0.083% 2.5 mg IH Q3HRT PRN #2 nebu 04/27/16 01/31/17 Unknown Rx NEBS] Bisacodyl [Dulcolax suppos] 10 mg [place] QDAY PRN #30 supp.rect 04/27/16 01/31/17 Unknown Rx Calcium Acetate/Aluminum Sulf 1 each TP TID #30 packet 04/27/16 01/31/17 Unknown Rx [[place] Packet] Carvedilol [Coreg] 12.5 mg PO BID #30 tablet 04/27/16 01/31/17 Unknown Rx Ferrous Sulfate [Feosol 325 MG tab] 325 mg PO BID #60 tablet 04/27/16 01/31/17 Unknown Rx Insulin NPH/Regular [NovoLIN 70/30] 10 unit SUB-Q BIDDIAB #100 units 04/27/16 Unknown Rx Simvastatin [Zocor TAB] 10 mg PO QHS #30 tablet 04/27/16 01/31/17 Unknown Rx amLODIPine [Norvasc] 10 mg PO QDAY #30 tablet 04/27/16 01/31/17 Unknown Rx Active Meds: Active Medications Albuterol (Proventil) 2.5 mg IH Q3HRT PRN PRN Reason: Shortness Of Breath Aluminum Sulfate/Calcium Acetate ([place] Packet) [address] [facility] Last Admin: 02/01/17 15:11 Dose: 1 each Amlodipine Besylate (Norvasc) [address] [facility] Last Admin: 02/01/17 09:37 Dose: 10 mg Bisacodyl (Dulcolax) 10 mg [place] QDAY PRN PRN Reason: Constipation unrelieved by MOM Carvedilol (Coreg) 12.[address] [facility] Last Admin: 02/01/17 09:37 Dose: 12.5 mg Ferrous Sulfate (Feosol) [address] [facility] Last Admin: 02/01/17 09:36 Dose: 325 mg Hydralazine HCl (Apresoline) 10 mg IV Q4HR PRN PRN Reason: Elevated Blood Pressure Stop: 02/02/17 16:41 Last Admin: 02/01/17 08:27 Dose: 10 mg Piperacillin Sod/Tazobactam Sod (Zosyn/Ns 4.5gm/100ml) 4.5 gm in 100 mls @ 200 mls/hr IV Q8H [facility] PRN Reason: Protocol Last Admin: 02/01/17 09:51 Dose: 200 mls/hr Insulin Human Isoph/Insulin Regular (Novolin 70/30) 10 unit SUB-Q BIDDIAB [facility] Last Admin: 02/01/17 08:19 Dose: Not Given Morphine Sulfate (Morphine) 2 mg IV Q4H PRN PRN Reason: Pain, Moderate (4-6) Last Admin: 01/31/17 21:47 Dose: 2 mg Pravastatin Sodium (Pravachol) 20 mg PO QHS [facility] Last Admin: 01/31/17 21:46 Dose: 20 mg Vancomycin HCl (Vancomycin Pharmacy To Dose) 1 each IV PKCONSULT [facility] PRN Reason: Protocol Review of Systems All systems: negative (as per HPI rest negative) Physical Examination - Physical Exam Narrative exam: General appearance: Alert in NAD, conversant Eyes: anicteric sclerae, moist conjunctivae; no lid-lag; PERRLA HENT: Atraumatic; oropharynx clear with moist mucous membranes and no mucosal ulcerations/no oral thrush; normal hard and soft palate. Normal external ears. Neck: Trachea midline; supple, no thyromegaly or lymphadenopathy Lungs: CTA, with normal respiratory effort and no intercostal retractions CV: RRR, no murmurs Abdomen: Soft, non-tender; no masses or hepatosplenomegaly Extremities: No peripheral edema or extremity lymphadenopathy Skin: left axilary severe fold with purulent exudate, right axila with HS lesions, right groin with skin tear Psych: Appropriate affect, alert and oriented to person, place and time. Neuro: alert and oriented x 3. Moving all extermities Lines: No CVL / PICC - Constitutional Vitals: Vital Signs Temp Pulse Resp BP Pulse Ox 99.3 F 85 18 156/92 99 02/01/17 08:17 02/01/17 16:51 02/01/17 16:51 02/01/17 16:51 02/01/17 16:51 Temperature -Last 24 Hours Temperature 99.3 F Temperature 98.5 F Temperature 97.5 F Temperature 98.0 F Temperature 98.7 F Temperature 98.4 F Results - Labs CBC & Chem 7: 02/01/17 08:10 02/01/17 08:43 Labs: Abnormal lab results 01/31/17 01/31/17 01/31/17 Range/Units 03:23 08:25 17:39 WBC (4.5-11.0) K/mm3 RBC (3.65-5.03) M/mm3 Hgb (11.8-15.2) gm/dl Hct (35.5-45.6) % MCV (84-94) fl MCH (28-32) pg RDW (13.2-15.2) % Seg Neutrophils % (40.0-70.0) % Seg Neutrophils # (1.8-7.7) K/mm3 Creatinine (0.8-1.5) mg/dL POC Glucose 134 H (70-105) Calcium (8.4-10.2) mg/dL HDL Cholesterol 27 L (40-59) mg/dL Crossmatch See Detail 01/31/17 02/01/17 02/01/17 Range/Units 21:46 05:41 08:10 WBC 13.8 H (4.5-11.0) K/mm3 RBC 3.05 L (3.65-5.03) M/mm3 Hgb 7.3 L 7.5 L (11.8-15.2) gm/dl Hct 22.3 L D 23.2 L (35.5-45.6) % MCV 73 L (84-94) fl MCH 24 L (28-32) pg RDW 22.2 H (13.2-15.2) % Seg Neutrophils % 76.9 H (40.0-70.0) % Seg Neutrophils # 10.6 H (1.8-7.7) K/mm3 Creatinine (0.8-1.5) mg/dL POC Glucose 175 H (70-105) Calcium (8.4-10.2) mg/dL HDL Cholesterol (40-59) mg/dL Crossmatch 02/01/17 02/01/17 Range/Units 08:43 12:03 WBC (4.5-11.0) K/mm3 RBC (3.65-5.03) M/mm3 Hgb (11.8-15.2) gm/dl Hct (35.5-45.6) % MCV (84-94) fl MCH (28-32) pg RDW (13.2-15.2) % Seg Neutrophils % (40.0-70.0) % Seg Neutrophils # (1.8-7.7) K/mm3 Creatinine 2.9 H (0.8-1.5) mg/dL POC Glucose 166 H (70-105) Calcium 7.8 L (8.4-10.2) mg/dL HDL Cholesterol (40-59) mg/dL Crossmatch Assessment and Plan Assessment: 1) Sepsis: Present on admission, manifested by tachycardia, leukocytosis. Etiology most likely hidradenitis supurativa with superimposed bacterial infection Left axilla more than Right axilla +/- UTI. 2) Hidradenitis supurativa with superimposed bacterial infection Left axilla more than Right axilla -followed at the [facility] wound care center and ID Dr Fall in the past -wound cultures in Apr 2016 grew MSSA, but previous outpatient wound cultures grew MRSA. 3) UTI 4) NOLAN on CKD 5) Diabetes mellitus 6) legal blindness 7) Anemia - severe Plan: -contact isolation in view of history of MRSA -continue zosyn and vanco renally dosed -follow-up blood cultures, urine culture -obtain left axilary wound culture -obtain C-reactive protein (CRP) -needs referral for severe hidradenitis supurativa management - plastic surgery Thank you Dr Fraser for your consultation, will follow up with you. Petrona Patterson MD Infectious Diseases Specialist [facility] ([facility]) M [phone] O [phone]
[2017-02-01] MEDS: PRAVACHOL PO SCH (22:01)
[2017-02-02] LABS: Hematocrit 26.7 % (35.5-45.6)
[2017-02-02] MEDS: ZOSYN/NS 4.5GM/100ML 4.5 GM/100 ML VIAL IV SCH ×3 (02:40→17:24)
[2017-02-02 04:30] LABS: Basophils % (Auto) 0.4 % (0.0-1.8); Eosinophils % (Auto) 3.2 % (0.0-4.3); Hematocrit 28.2 % (35.5-45.6); Hemoglobin 9.5 gm/dl (11.8-15.2); Mean Corpuscular HGB Conc 34 % (32-34); Mean Corpuscular Volume 77 fl (84-94); Platelet Count 311 K/mm3 (140-440); Red Blood Count 3.67 M/mm3 (3.65-5.03); White Blood Count 14.6 K/mm3 (4.5-11.0)
[2017-02-02 04:31] LABS: Mean Corpuscular Hemoglobin 26 pg (28-32); Red Cell Distribution Width 21.9 % (13.2-15.2)
[2017-02-02 04:56] LABS: Calcium 7.6 mg/dL (8.4-10.2); Chloride 104.1 mmol/L (98-107); Potassium 3.7 mmol/L (3.6-5.0)
[2017-02-02] MEDS: DOMEBORO PACKET TP SCH ×3 (08:20→21:51)
--- NOTE | 2017-02-02 09:43 | Progress Note ---
Assessment and Plan impression * Renal insufficiency. Most , likely chronic * Anemia * Hidradenitis * Hypertension * Diabetes Impression * His renal function appears to be stable. He may be at his baseline * He may have underlying hypertensive nephrosclerosis and/or diabetic nephropathy * Would recommend avoiding the use of nephrotoxins * Packed RBC transfusi as needed * add Procrit Subjective Date of service: 02/02/17 Interval history: patient feels well this morning. No complaints offered. Denies any shortness of breath Objective - Vital Signs Vital signs: Vital Signs - 12hr 02/01/17 02/01/17 02/02/17 22:02 22:08 00:33 Temperature 98.6 F Pulse Rate 82 82 85 Respiratory 18 Rate Blood Pressure 172/103 172/103 161/92 O2 Sat by Pulse 98 Oximetry 02/02/17 02/02/17 04:25 08:25 Temperature 99.0 F 98.7 F Pulse Rate 82 84 Respiratory 16 Rate Blood Pressure 160/95 173/100 O2 Sat by Pulse 98 98 Oximetry - General Appearance General appearance: well-developed, well-nourished, appears stated age EENT: PERRL, mucous membranes moist Neck: no JVD, no thyromegaly, no carotid bruit, supple Respiratory: Present: Clear to Ascultation, Other (dressing noted in both his axilla) Cardiology: regular, normal heart rate Gastrointestinal: normal, normoactive bowel sounds - Lab 02/02/17 Unknown 02/02/17 Unknown Most recent lab results Calcium 7.6 mg/dL (8.4-10.2) L 02/02/17 Unknown
[2017-02-02] MEDS ORDERED: VANCOMYCIN 1,500 MG in NACL 0.9% 500 ML 500 ML IV SCH (10:00)
[2017-02-02] MEDS: COREG PO SCH ×2 (11:06→21:48)
[2017-02-02] MEDS: NORVASC PO SCH (11:06)
[2017-02-02] MEDS: FEOSOL PO SCH ×2 (11:06→21:47)
[2017-02-02] MEDS ORDERED: VANCOMYCIN 1,500 MG in NACL 0.9% 500 ML 500 ML IV ONE (12:00)
--- NOTE | 2017-02-02 13:58 | Progress Note ---
Assessment and Plan Assessment and plan: Severe anemia secondary to bleeding from hidradenitis suppurativa Hidradenitis suppurativa Sepsis Uncontrolled hypertension Diabetes mellitus diet controlled Chronic kidney disease - Patient is on IV vancomycin and Zosyn - ID & nephrology consult appreciated - Dr alaniz plastic surgeon was consulted, he was seen by PA/MAINTENANCE FITTER from his office and she said Dr alaniz will come and evaluate today - accu check - Hemoglobin stable DVT - SCDs Disposition - continue inpatient care and wait for Dr Alaniz's evaluation. History Interval history: Patient was seen and evaluated this morning, bleeding stopped, hemoglobin stable. Hospitalist Physical - Physical exam Narrative exam: Not in cardiopulmonary distress. The patient appeared well nourished and normally developed. Vital signs as documented. Head exam is unremarkable. No scleral icterus . Neck is without jugular venous distension, thyromegaly, or carotid bruits. Lungs are clear to auscultation. Cardiac exam reveals regular rate and Rhythm. First and second heart sounds normal. No murmurs, rubs or gallops. Abdominal exam reveals normal bowel sounds, no masses, no organomegaly and no aortic enlargement. Extremities +2 pretibial edema. Skin: pus draining ulcers on bilateral arm pits on the left chest, bleeding hirnadenitis in the right groin area, the diaper is dry today. 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 No focal weakness. - Constitutional Vitals: Temp Pulse Resp BP Pulse Ox 98.7 F 84 16 173/100 98 02/02/17 08:25 02/02/17 08:25 02/02/17 04:25 02/02/17 08:25 02/02/17 08:25 Results - Labs CBC & Chem 7: 02/02/17 Unknown 02/02/17 Unknown Labs: Laboratory Last Values WBC 14.6 K/mm3 (4.5-11.0) H 02/02/17 Unknown RBC 3.67 M/mm3 (3.65-5.03) 02/02/17 Unknown Hgb 9.5 gm/dl (11.8-15.2) L 02/02/17 Unknown Hct 28.2 % (35.5-45.6) L 02/02/17 Unknown MCV 77 fl (84-94) L 02/02/17 Unknown MCH 26 pg (28-32) L 02/02/17 Unknown MCHC 34 % (32-34) 02/02/17 Unknown RDW 21.9 % (13.2-15.2) H 02/02/17 Unknown Plt Count 311 K/mm3 (140-440) 02/02/17 Unknown Lymph % (Auto) 13.7 % (13.4-35.0) 02/02/17 Unknown [place] % (Auto) 5.1 % (0.0-7.3) 02/02/17 Unknown Eos % (Auto) 3.2 % (0.0-4.3) 02/02/17 Unknown Baso % (Auto) 0.4 % (0.0-1.8) 02/02/17 Unknown Lymph # 2.0 K/mm3 (1.2-5.4) 02/02/17 Unknown [place] # 0.7 K/mm3 (0.0-0.8) 02/02/17 Unknown Eos # 0.5 K/mm3 (0.0-0.4) H 02/02/17 Unknown Baso # 0.1 K/mm3 (0.0-0.1) 02/02/17 Unknown Seg Neutrophils % 77.6 % (40.0-70.0) H 02/02/17 Unknown Seg Neutrophils # 11.4 K/mm3 (1.8-7.7) H 02/02/17 Unknown Sodium 139 mmol/L (137-145) 02/02/17 Unknown Potassium 3.7 mmol/L (3.6-5.0) 02/02/17 Unknown Chloride 104.1 mmol/L (98-107) 02/02/17 Unknown Carbon Dioxide 24 mmol/L (22-30) 02/02/17 Unknown Anion Gap 15 mmol/L 02/02/17 Unknown BUN 16 mg/dL (9-20) 02/02/17 Unknown Creatinine 2.9 mg/dL (0.8-1.5) H 02/02/17 Unknown Estimated GFR 29 ml/min 02/02/17 Unknown BUN/Creatinine Ratio 6 % 02/02/17 Unknown Glucose 137 mg/dL (75-100) H 02/02/17 Unknown POC Glucose 105 (70-105) 02/02/17 12:10 Calcium 7.6 mg/dL (8.4-10.2) L 02/02/17 Unknown Troponin T 0.027 ng/mL (0.00-0.029) 01/31/17 08:54 C-Reactive Protein 6.20 mg/dL (0.00-1.30) H 02/01/17 08:43 Triglycerides 92 mg/dL (2-149) 01/31/17 03:23 Cholesterol 125 mg/dL (50-199) 01/31/17 03:23 LDL Cholesterol Direct 80 mg/dL (50-130) 01/31/17 03:23 HDL Cholesterol 27 mg/dL (40-59) L 01/31/17 03:23 Cholesterol/HDL Ratio 4.62 % 01/31/17 03:23 Urine Color Yellow (Yellow) 01/31/17 03:27 Urine Turbidity Clear (Clear) 01/31/17 03:27 Urine pH 6.0 (5.0-7.0) 01/31/17 03:27 Ur Specific [place] 1.013 (1.003-1.030) 01/31/17 03:27 Urine Protein 100 mg/dl mg/dL (Negative) 01/31/17 03:27 Urine Glucose (UA) 50 mg/dL (Negative) 01/31/17 03:27 Urine Ketones Neg mg/dL (Negative) 01/31/17 03:27 Urine Blood Sm (Negative) 01/31/17 03:27 Urine Nitrite Neg (Negative) 01/31/17 03:27 Urine Bilirubin Neg (Negative) 01/31/17 03:27 Urine Urobilinogen 2.0 mg/dL (<2.0) 01/31/17 03:27 Ur Leukocyte Esterase Mod (Negative) 01/31/17 03:27 Urine WBC (Auto) 33.0 /HPF (0.0-6.0) H 01/31/17 03:27 Urine RBC (Auto) 16.0 /HPF (0.0-6.0) 01/31/17 03:27 U Epithel Cells (Auto) < 1.0 /HPF (0-13.0) 01/31/17 03:27 Urine Bacteria (Auto) 1+ /HPF (Negative) 01/31/17 03:27 Amorphous Crystals Few 01/31/17 03:27 Hyaline Casts 1 /LPF 01/31/17 03:27 Urine Mucus Few /HPF 01/31/17 03:27 Blood Type O POSITIVE 01/31/17 08:25 Antibody Screen Negative 01/31/17 08:25 Crossmatch See Detail 01/31/17 08:25
--- NOTE | 2017-02-02 15:34 | Progress Note ---
Assessment and Plan Assessment: 1) Sepsis: better. Etiology most likely hidradenitis supurativa with superimposed bacterial infection Left axilla more than Right axilla +/- UTI. 2) Hidradenitis supurativa with superimposed bacterial infection Left axilla more than Right axilla -followed at the [facility] wound care center and ID Dr Fall in the past -wound cultures in Apr 2016 grew MSSA, but previous outpatient wound cultures grew MRSA. -CRP=6 3) UTI 4) NOLAN on CKD 5) Diabetes mellitus 6) legal blindness 7) Anemia - severe Plan: -contact isolation in view of history of MRSA -continue zosyn and vanco renally dosed -follow-up blood cultures, wound culture -Plastic surgery eval Thank you Dr Gaytan for your consultation, will follow up with you. Petrona Patterson MD Infectious Diseases Specialist [facility] ([facility]) M [phone] O [phone] Subjective Date of service: 02/02/17 Principal diagnosis: hidradenitis supurativa Interval history: Feels some better, left axilla better, still draining no fever Microbiology: Blood cultures: 01/31 ngtd Urine cultures: 01/31 pending Wound cultures: 02/01 Left axilla pending Current Antimicrobials: Zosyn 01/31 Vancomycin 01/31 Objective - Exam Narrative Exam: General appearance: Alert in NAD, conversant Eyes: anicteric sclerae, moist conjunctivae; no lid-lag; PERRLA HENT: Atraumatic; oropharynx clear with moist mucous membranes and no mucosal ulcerations/no oral thrush; normal hard and soft palate. Normal external ears. Neck: Trachea midline; supple, no thyromegaly or lymphadenopathy Lungs: CTA, with normal respiratory effort and no intercostal retractions CV: RRR, no murmurs Abdomen: Soft, non-tender; no masses or hepatosplenomegaly Extremities: No peripheral edema or extremity lymphadenopathy Skin: left axilary severe fold with purulent exudate, right axila with HS lesions, right groin with skin tear Psych: Appropriate affect, alert and oriented to person, place and time. Neuro: alert and oriented x 3. Moving all extermities Lines: No CVL / PICC - Constitutional Vitals: Vital Signs Temp Pulse Resp BP Pulse Ox 98.7 F 84 16 173/100 98 02/02/17 08:25 02/02/17 08:25 02/02/17 04:25 02/02/17 08:25 02/02/17 08:25 Temperature -Last 24 Hours Temperature 98.7 F Temperature 99.0 F Temperature 98.6 F Temperature 98.1 F - Labs CBC & Chem 7: 02/02/17 Unknown 02/02/17 Unknown Labs: Abnormal lab results 01/31/17 02/01/17 02/01/17 Range/Units 08:25 08:43 16:41 WBC (4.5-11.0) K/mm3 Hgb (11.8-15.2) gm/dl Hct (35.5-45.6) % MCV (84-94) fl MCH (28-32) pg RDW (13.2-15.2) % Eos # (0.0-0.4) K/mm3 Seg Neutrophils % (40.0-70.0) % Seg Neutrophils # (1.8-7.7) K/mm3 Creatinine (0.8-1.5) mg/dL Glucose (75-100) mg/dL POC Glucose 132 H (70-105) Calcium (8.4-10.2) mg/dL C-Reactive Protein 6.20 H (0.00-1.30) mg/dL Crossmatch See Detail 02/01/17 02/01/17 02/02/17 Range/Units 23:09 23:50 07:13 WBC (4.5-11.0) K/mm3 Hgb 9.0 L (11.8-15.2) gm/dl Hct 26.7 L (35.5-45.6) % MCV (84-94) fl MCH (28-32) pg RDW (13.2-15.2) % Eos # (0.0-0.4) K/mm3 Seg Neutrophils % (40.0-70.0) % Seg Neutrophils # (1.8-7.7) K/mm3 Creatinine (0.8-1.5) mg/dL Glucose (75-100) mg/dL POC Glucose 137 H 113 H (70-105) Calcium (8.4-10.2) mg/dL C-Reactive Protein (0.00-1.30) mg/dL Crossmatch 02/02/17 02/02/17 Range/Units Unknown Unknown WBC 14.6 H (4.5-11.0) K/mm3 Hgb 9.5 L (11.8-15.2) gm/dl Hct 28.2 L (35.5-45.6) % MCV 77 L (84-94) fl MCH 26 L (28-32) pg RDW 21.9 H (13.2-15.2) % Eos # 0.5 H (0.0-0.4) K/mm3 Seg Neutrophils % 77.6 H (40.0-70.0) % Seg Neutrophils # 11.4 H (1.8-7.7) K/mm3 Creatinine 2.9 H (0.8-1.5) mg/dL Glucose 137 H (75-100) mg/dL POC Glucose (70-105) Calcium 7.6 L (8.4-10.2) mg/dL C-Reactive Protein (0.00-1.30) mg/dL Crossmatch
[2017-02-02] MEDS: PRAVACHOL PO SCH (21:47)
[2017-02-03] MEDS: ZOSYN/NS 4.5GM/100ML 4.5 GM/100 ML VIAL IV SCH ×3 (02:41→17:01)
[2017-02-03 06:34] LABS: Basophils % (Auto) 0.6 % (0.0-1.8); Eosinophils % (Auto) 3.7 % (0.0-4.3); Hematocrit 29.2 % (35.5-45.6); Hemoglobin 9.8 gm/dl (11.8-15.2); Mean Corpuscular HGB Conc 34 % (32-34); Mean Corpuscular Volume 77 fl (84-94); Platelet Count 328 K/mm3 (140-440); Red Blood Count 3.78 M/mm3 (3.65-5.03); White Blood Count 14.1 K/mm3 (4.5-11.0)
[2017-02-03 06:40] LABS: Mean Corpuscular Hemoglobin 26 pg (28-32); Red Cell Distribution Width 21.9 % (13.2-15.2)
[2017-02-03 06:51] LABS: Chloride 102.1 mmol/L (98-107); Potassium 3.4 mmol/L (3.6-5.0)
[2017-02-03] MEDS: DOMEBORO PACKET TP SCH ×2 (08:00→13:48)
[2017-02-03] MEDS: COREG PO SCH ×2 (09:04→21:33)
[2017-02-03] MEDS: FEOSOL PO SCH ×2 (09:04→21:32)
[2017-02-03] MEDS: NORVASC PO SCH (09:05)
--- NOTE | 2017-02-03 09:28 | Progress Note ---
Assessment and Plan impression * Renal insufficiency. Most , likely chronic * Anemia * Hidradenitis * Hypertension * Diabetes Impression * His renal function appears to be stable. He may be at his baseline * He may have underlying hypertensive nephrosclerosis and/or diabetic nephropathy * Would recommend avoiding the use of nephrotoxins * Packed RBC transfusion as needed * Continue Procrit * His blood pressure is noted to be elevated. Shall adjust his antihypertensive meds. Serum potassium is low normal. Shall check a renin Ruben ratio. May need to add Aldactone Subjective Date of service: 02/03/17 Principal diagnosis: hidradenitis supurativa Interval history: Patient clinically about the same. Denies any shortness of breath. No nausea or vomiting Objective - Vital Signs Vital signs: Vital Signs - 12hr 02/02/17 02/02/17 02/02/17 21:30 21:48 22:00 Temperature 98.6 F Pulse Rate 86 86 Respiratory 16 18 Rate Blood Pressure 168/94 168/86 O2 Sat by Pulse 93 Oximetry 02/03/17 02/03/17 08:53 09:04 Temperature 98.1 F Pulse Rate 80 82 Respiratory 20 Rate Blood Pressure 185/115 185/115 O2 Sat by Pulse 98 Oximetry - General Appearance General appearance: well-developed, well-nourished, appears stated age EENT: PERRL, mucous membranes moist Neck: no JVD, no thyromegaly, no carotid bruit, supple Respiratory: Present: Clear to Ascultation Cardiology: regular, normal heart rate, S1S2, no murmurs Gastrointestinal: normal, normoactive bowel sounds Integumentary: other (wrinkling of skin noted in both his lower extremities) - Lab 02/03/17 05:16 02/03/17 05:16 Most recent lab results Calcium 8.0 mg/dL (8.4-10.2) L 02/03/17 05:16
[2017-02-03] MEDS ORDERED: COREG PO SCH (09:29)
[2017-02-03] MEDS ORDERED: COREG PO ONE ×2 (10:00→12:12)
--- NOTE | 2017-02-03 11:48 | Progress Note ---
Assessment and Plan Assessment: 1) Sepsis: better. Etiology most likely hidradenitis supurativa with superimposed bacterial infection Left axilla more than Right axilla +/- UTI. 2) Hidradenitis supurativa with superimposed bacterial infection Left axilla more than Right axilla -followed at the [facility] wound care center and ID Dr Fall in the past -wound cultures in Apr 2016 grew MSSA, but previous outpatient wound cultures grew MRSA. -CRP=6 3) UTI 4) ONLAN on CKD 5) Diabetes mellitus 6) legal blindness 7) Anemia - severe Plan: -Surgical eval -left axilla soft tissue US r/o abscess -contact isolation in view of history of MRSA -continue zosyn and vanco renally dosed -follow-up blood cultures, wound culture -Plastic surgery eval Thank you Dr Gaytan for your consultation, will follow up with you. Petrona Patterson MD Infectious Diseases Specialist [facility] ([facility]) M [phone] O [phone] Subjective Date of service: 02/03/17 Principal diagnosis: hidradenitis supurativa Interval history: Feels some better, left axilla better, still draining no fever Microbiology: Blood cultures: 01/31 ngtd Urine cultures: 01/31 neg Wound cultures: 02/01 Left axilla Staph aureus Current Antimicrobials: Zosyn 01/31 Vancomycin 01/31 Objective - Exam Narrative Exam: General appearance: Alert in NAD, conversant Eyes: anicteric sclerae, moist conjunctivae; no lid-lag; PERRLA HENT: Atraumatic; oropharynx clear with moist mucous membranes and no mucosal ulcerations/no oral thrush; normal hard and soft palate. Normal external ears. Neck: Trachea midline; supple, no thyromegaly or lymphadenopathy Lungs: CTA, with normal respiratory effort and no intercostal retractions CV: RRR, no murmurs Abdomen: Soft, non-tender; no masses or hepatosplenomegaly Extremities: No peripheral edema or extremity lymphadenopathy Skin: left axilary severe fold with purulent exudate, right axila with HS lesions, right groin with skin tear Psych: Appropriate affect, alert and oriented to person, place and time. Neuro: alert and oriented x 3. Moving all extermities Lines: No CVL / PICC - Constitutional Vitals: Vital Signs Temp Pulse Resp BP Pulse Ox 98.1 F 82 20 185/115 98 02/03/17 08:53 02/03/17 09:04 02/03/17 08:53 02/03/17 09:04 02/03/17 08:53 Temperature -Last 24 Hours Temperature 98.1 F Temperature 98.6 F Temperature 98.5 F - Labs CBC & Chem 7: 02/03/17 05:16 02/03/17 05:16 Labs: Abnormal lab results 02/02/17 02/03/17 02/03/17 Range/Units 16:38 05:16 05:16 WBC 14.1 H (4.5-11.0) K/mm3 Hgb 9.8 L (11.8-15.2) gm/dl Hct 29.2 L (35.5-45.6) % MCV 77 L (84-94) fl MCH 26 L (28-32) pg RDW 21.9 H (13.2-15.2) % Eos # 0.5 H (0.0-0.4) K/mm3 Seg Neutrophils % 76.9 H (40.0-70.0) % Seg Neutrophils # 10.9 H (1.8-7.7) K/mm3 Potassium 3.4 L (3.6-5.0) mmol/L Creatinine 2.9 H (0.8-1.5) mg/dL Glucose 115 H (75-100) mg/dL POC Glucose 241 H (70-105) Calcium 8.0 L (8.4-10.2) mg/dL 02/03/17 Range/Units 05:37 WBC (4.5-11.0) K/mm3 Hgb (11.8-15.2) gm/dl Hct (35.5-45.6) % MCV (84-94) fl MCH (28-32) pg RDW (13.2-15.2) % Eos # (0.0-0.4) K/mm3 Seg Neutrophils % (40.0-70.0) % Seg Neutrophils # (1.8-7.7) K/mm3 Potassium (3.6-5.0) mmol/L Creatinine (0.8-1.5) mg/dL Glucose (75-100) mg/dL POC Glucose 118 H (70-105) Calcium (8.4-10.2) mg/dL
--- NOTE | 2017-02-03 12:25 | Consultation ---
History of Present Illness Consult date: 02/03/17 Reason for consult: other (hidradenitis) Requesting physician: MUKESH FRASER Chief complaint: bleeding groin wound - History of present illness History of present illness: 42 yo M with hx of DM, HTN, bilateral axillary hidradenitis for several years presents for bleeding from his right groin several days ago. The patient states he started having copious amount of bleeding from a wound in his right groin, felt weak and decided to come to the emergency room. In the ER he was found to be severely anemic with active bleeding from the groin wound and is now s/p multiple PRBC transfusions. The patient states he has had bleeding from his axillary hidradenitis before and was hospitalized and treated with blood transfusions. Currently, he states that the bleeding has stopped. He denies f/c , cp, sob, n/v, abdominal pain. He has pain in b/l axilla. He has never seen a surgeon for hidradenitis. He was being followed at the wound care center until he lost his insurance. He has never had a cscope/egd. He was seen by Dr. Monsivais early in his hospital stay and surgery was recommended to explore the right groin in order to control bleeding, however the patient refused surgery. Past History Past Medical History: diabetes, hypertension, other (Hidrnadenitis) Past Surgical History: Other (eye surgery) Social history: full code. denies: smoking, alcohol abuse, prescription drug abuse, IV drug use Family history: no significant family history Medications and Allergies Allergies Allergy/AdvReac Type Severity Reaction Status Date / Time No Known Allergies Allergy Verified 10/14/14 17:03 Home Medications Medication Instructions Recorded Confirmed Last Taken Type ALBUTEROL NEB's [Proventil 0.083% 2.5 mg IH Q3HRT PRN #2 nebu 04/27/16 01/31/17 Unknown Rx NEBS] Bisacodyl [Dulcolax suppos] [address] QDAY PRN #30 supp.rect 04/27/16 01/31/17 Unknown Rx Calcium Acetate/Aluminum Sulf 1 each TP TID #30 packet 04/27/16 01/31/17 Unknown Rx [[place] Packet] Carvedilol [Coreg] 12.5 mg PO BID #30 tablet 04/27/16 01/31/17 Unknown Rx Ferrous Sulfate [Feosol 325 MG tab] 325 mg PO BID #60 tablet 04/27/16 01/31/17 Unknown Rx Insulin NPH/Regular [NovoLIN 70/30] 10 unit SUB-Q BIDDIAB #100 units 04/27/16 Unknown Rx Simvastatin [Zocor TAB] 10 mg PO QHS #30 tablet 04/27/16 01/31/17 Unknown Rx amLODIPine [Norvasc] 10 mg PO QDAY #30 tablet 04/27/16 01/31/17 Unknown Rx Active Meds: Active Medications Albuterol (Proventil) 2.5 mg IH Q3HRT PRN PRN Reason: Shortness Of Breath Aluminum Sulfate/Calcium Acetate ([place] Packet) 1 each TP TID [facility] Last Admin: 02/03/17 08:00 Dose: 1 each Amlodipine Besylate (Norvasc) 10 mg PO QDAY [facility] Last Admin: 02/03/17 09:05 Dose: 10 mg Bisacodyl (Dulcolax) [address] QDAY PRN PRN Reason: Constipation unrelieved by MOM Carvedilol (Coreg) 25 mg PO Q12HR [facility] Ferrous Sulfate (Feosol) 325 mg PO BID [facility] Last Admin: 02/03/17 09:04 Dose: 325 mg Piperacillin Sod/Tazobactam Sod (Zosyn/Ns 4.5gm/100ml) 4.5 gm in 100 mls @ 200 mls/hr IV Q8H [facility] PRN Reason: Protocol Last Admin: 02/03/17 09:05 Dose: 200 mls/hr Insulin Human Isoph/Insulin Regular (Novolin 70/30) 10 unit SUB-Q BIDDIAB [facility] Last Admin: 02/02/17 17:23 Dose: 10 unit Morphine Sulfate (Morphine) 2 mg IV Q4H PRN PRN Reason: Pain, Moderate (4-6) Last Admin: 01/31/17 21:47 Dose: 2 mg Pravastatin Sodium (Pravachol) 20 mg PO QHS [facility] Last Admin: 02/02/17 21:47 Dose: 20 mg Vancomycin HCl (Vancomycin Pharmacy To Dose) 1 each IV PKCONSULT [facility] PRN Reason: Protocol Review of Systems All systems: negative (see hpi) Exam Vital Signs Temp Pulse Resp BP Pulse Ox 97.5 F L 114 H 18 167/104 100 01/31/17 03:01 01/31/17 03:01 01/31/17 03:01 01/31/17 03:01 01/31/17 03:01 Narrative exam: Gen: AAOx3. NAD CV: S1, S2+ Resp: No audible wheezes Abd: soft, NT Ext: 4cm wound in right groin crease with pink/red granulation tissue. No fluctuance or indurance appreciated in either groin. B/L axillary hidradenitis with active purulent drainage from small opening in left axilla. 5cm wound in posterior right axilla where skin has sloughed off and red wound bed. Results - Labs 02/03/17 05:16 02/03/17 05:16 Abnormal lab results 02/02/17 02/03/17 02/03/17 Range/Units 16:38 05:16 05:16 WBC 14.1 H (4.5-11.0) K/mm3 Hgb 9.8 L (11.8-15.2) gm/dl Hct 29.2 L (35.5-45.6) % MCV 77 L (84-94) fl MCH 26 L (28-32) pg RDW 21.9 H (13.2-15.2) % Eos # 0.5 H (0.0-0.4) K/mm3 Seg Neutrophils % 76.9 H (40.0-70.0) % Seg Neutrophils # 10.9 H (1.8-7.7) K/mm3 Potassium 3.4 L (3.6-5.0) mmol/L Creatinine 2.9 H (0.8-1.5) mg/dL Glucose 115 H (75-100) mg/dL POC Glucose 241 H (70-105) Calcium 8.0 L (8.4-10.2) mg/dL 02/03/17 02/03/17 Range/Units 05:37 12:23 WBC (4.5-11.0) K/mm3 Hgb (11.8-15.2) gm/dl Hct (35.5-45.6) % MCV (84-94) fl MCH (28-32) pg RDW (13.2-15.2) % Eos # (0.0-0.4) K/mm3 Seg Neutrophils % (40.0-70.0) % Seg Neutrophils # (1.8-7.7) K/mm3 Potassium (3.6-5.0) mmol/L Creatinine (0.8-1.5) mg/dL Glucose (75-100) mg/dL POC Glucose 118 H 139 H (70-105) Calcium (8.4-10.2) mg/dL Diabetes panel 02/03/17 Range/Units 05:16 Sodium 139 (137-145) mmol/L Potassium 3.4 L (3.6-5.0) mmol/L Chloride 102.1 (98-107) mmol/L Carbon Dioxide 23 (22-30) mmol/L BUN 15 (9-20) mg/dL Creatinine 2.9 H (0.8-1.5) mg/dL Glucose 115 H (75-100) mg/dL Calcium 8.0 L (8.4-10.2) mg/dL Calcium panel 02/03/17 Range/Units 05:16 Calcium 8.0 L (8.4-10.2) mg/dL Pituitary panel 02/03/17 Range/Units 05:16 Sodium 139 (137-145) mmol/L Potassium 3.4 L (3.6-5.0) mmol/L Chloride 102.1 (98-107) mmol/L Carbon Dioxide 23 (22-30) mmol/L BUN 15 (9-20) mg/dL Creatinine 2.9 H (0.8-1.5) mg/dL Glucose 115 H (75-100) mg/dL Calcium 8.0 L (8.4-10.2) mg/dL Adrenal panel 02/03/17 Range/Units 05:16 Sodium 139 (137-145) mmol/L Potassium 3.4 L (3.6-5.0) mmol/L Chloride 102.1 (98-107) mmol/L Carbon Dioxide 23 (22-30) mmol/L BUN 15 (9-20) mg/dL Creatinine 2.9 H (0.8-1.5) mg/dL Glucose 115 H (75-100) mg/dL Calcium 8.0 L (8.4-10.2) mg/dL Assessment and Plan 42 yo M with 1. infected bilateral axillary hidradenitis 2. groin hidradenitis 3. DM 4. HTN 5. anemia - microcytic, likely secondary to iron deficiency in addition to acute blood loss from groin wound. Plan: 1. continue abx 2. reg diet 3. pain control prn 4. continue wound care to axillary area. Recommend calcium alginate to R groin wound and to keep the area dry and clean 5. Plastics consult pending. Pt likely to need wide excision of axillary hidradenitis after course of abx. Will defer to Plastic surgery. 6. Hb stable. continue to monitor. D/W Dr. Fraser and Roque
[2017-02-03] MEDS: PERCOCET 5/325 PO PRN ×3 (13:48→21:32)
--- NOTE | 2017-02-03 15:07 | Ultrasound Report ---
Ultrasound of the left axilla. History: Pain and swelling. Findings: The examination is technically very difficult due to the patient's clinical condition and pain. Limited images demonstrate a vague complex area in the axilla with scattered hypoechoic regions. Overall this extends over an area of 2 cm This could represent a small complex fluid collection/abscess. CT may be better to evaluate this area
--- NOTE | 2017-02-03 15:24 | Progress Note ---
Assessment and Plan Assessment and plan: Severe anemia secondary to bleeding from hidradenitis suppurativa Hidradenitis suppurativa Sepsis Uncontrolled hypertension Diabetes mellitus diet controlled Chronic kidney disease - Patient is on IV vancomycin and Zosyn - ID & nephrology consult appreciated - Dr alaniz plastic surgeon was consulted, patient was seen by PA/PARACHUTIST/COMBATANT DIVER QUALIFIED from his office but no note - accu check - Hemoglobin stable - Surgery consulted, recommendations appreciated DVT - SCDs Disposition - continue inpatient care and wait for Dr Alaniz's evaluation. History Interval history: Patient was seen and evaluated this morning, bleeding stopped, hemoglobin stable , no new complaints. Agreed with the management plan. Hospitalist Physical - Physical exam Narrative exam: Not in cardiopulmonary distress. The patient appeared well nourished and normally developed. Vital signs as documented. Head exam is unremarkable. No scleral icterus . Neck is without jugular venous distension, thyromegaly, or carotid bruits. Lungs are clear to auscultation. Cardiac exam reveals regular rate and Rhythm. First and second heart sounds normal. No murmurs, rubs or gallops. Abdominal exam reveals normal bowel sounds, no masses, no organomegaly and no aortic enlargement. Extremities +2 pretibial edema. Skin: pus draining ulcers on bilateral arm pits on the left chest, bleeding hirnadenitis in the right groin area, the diaper is dry today. PRINT LINE INSPECTOR: Alert and oriented 3. No focal weakness. - Constitutional Vitals: Temp Pulse Resp BP Pulse Ox 98.1 F 82 20 185/115 98 02/03/17 08:53 02/03/17 09:04 02/03/17 08:53 02/03/17 09:04 02/03/17 08:53 Results - Labs CBC & Chem 7: 02/03/17 05:16 02/03/17 05:16 Labs: Laboratory Last Values WBC 14.1 K/mm3 (4.5-11.0) H 02/03/17 05:16 RBC 3.78 M/mm3 (3.65-5.03) 02/03/17 05:16 Hgb 9.8 gm/dl (11.8-15.2) L 02/03/17 05:16 Hct 29.2 % (35.5-45.6) L 02/03/17 05:16 MCV 77 fl (84-94) L 02/03/17 05:16 MCH 26 pg (28-32) L 02/03/17 05:16 MCHC 34 % (32-34) 02/03/17 05:16 RDW 21.9 % (13.2-15.2) H 02/03/17 05:16 Plt Count 328 K/mm3 (140-440) 02/03/17 05:16 Lymph % (Auto) 13.8 % (13.4-35.0) 02/03/17 05:16 [place] % (Auto) 5.0 % (0.0-7.3) 02/03/17 05:16 Eos % (Auto) 3.7 % (0.0-4.3) 02/03/17 05:16 Baso % (Auto) 0.6 % (0.0-1.8) 02/03/17 05:16 Lymph # 2.0 K/mm3 (1.2-5.4) 02/03/17 05:16 [place] # 0.7 K/mm3 (0.0-0.8) 02/03/17 05:16 Eos # 0.5 K/mm3 (0.0-0.4) H 02/03/17 05:16 Baso # 0.1 K/mm3 (0.0-0.1) 02/03/17 05:16 Seg Neutrophils % 76.9 % (40.0-70.0) H 02/03/17 05:16 Seg Neutrophils # 10.9 K/mm3 (1.8-7.7) H 02/03/17 05:16 Sodium 139 mmol/L (137-145) 02/03/17 05:16 Potassium 3.4 mmol/L (3.6-5.0) L 02/03/17 05:16 Chloride 102.1 mmol/L (98-107) 02/03/17 05:16 Carbon Dioxide 23 mmol/L (22-30) 02/03/17 05:16 Anion Gap 17 mmol/L 02/03/17 05:16 BUN 15 mg/dL (9-20) 02/03/17 05:16 Creatinine 2.9 mg/dL (0.8-1.5) H 02/03/17 05:16 Estimated GFR 29 ml/min 02/03/17 05:16 BUN/Creatinine Ratio 5 % 02/03/17 05:16 Glucose 115 mg/dL (75-100) H 02/03/17 05:16 POC Glucose 139 (70-105) H 02/03/17 12:23 Calcium 8.0 mg/dL (8.4-10.2) L 02/03/17 05:16 Troponin T 0.027 ng/mL (0.00-0.029) 01/31/17 08:54 C-Reactive Protein 6.20 mg/dL (0.00-1.30) H 02/01/17 08:43 Triglycerides 92 mg/dL (2-149) 01/31/17 03:23 Cholesterol 125 mg/dL (50-199) 01/31/17 03:23 LDL Cholesterol Direct 80 mg/dL (50-130) 01/31/17 03:23 HDL Cholesterol 27 mg/dL (40-59) L 01/31/17 03:23 Cholesterol/HDL Ratio 4.62 % 01/31/17 03:23 Urine Color Yellow (Yellow) 01/31/17 03:27 Urine Turbidity Clear (Clear) 01/31/17 03:27 Urine pH 6.0 (5.0-7.0) 01/31/17 03:27 Ur Specific [place] 1.013 (1.003-1.030) 01/31/17 03:27 Urine Protein 100 mg/dl mg/dL (Negative) 01/31/17 03:27 Urine Glucose (UA) 50 mg/dL (Negative) 01/31/17 03:27 Urine Ketones Neg mg/dL (Negative) 01/31/17 03:27 Urine Blood Sm (Negative) 01/31/17 03:27 Urine Nitrite Neg (Negative) 01/31/17 03:27 Urine Bilirubin Neg (Negative) 01/31/17 03:27 Urine Urobilinogen 2.0 mg/dL (<2.0) 01/31/17 03:27 Ur Leukocyte Esterase Mod (Negative) 01/31/17 03:27 Urine WBC (Auto) 33.0 /HPF (0.0-6.0) H 01/31/17 03:27 Urine RBC (Auto) 16.0 /HPF (0.0-6.0) 01/31/17 03:27 U Epithel Cells (Auto) < 1.0 /HPF (0-13.0) 01/31/17 03:27 Urine Bacteria (Auto) 1+ /HPF (Negative) 01/31/17 03:27 Amorphous Crystals Few 01/31/17 03:27 Hyaline Casts 1 /LPF 01/31/17 03:27 Urine Mucus Few /HPF 01/31/17 03:27 Random Vancomycin 28.4 ug/mL (0-40.0) 02/03/17 05:16 Blood Type O POSITIVE 01/31/17 08:25 Antibody Screen Negative 01/31/17 08:25 Crossmatch See Detail 01/31/17 08:25
[2017-02-03] MEDS ORDERED: K-DUR PO ONE (16:00)
[2017-02-03] MEDS: PRAVACHOL PO SCH (21:33)
[2017-02-04] MEDS: ZOSYN/NS 4.5GM/100ML 4.5 GM/100 ML VIAL IV SCH ×2 (03:10→10:08)
[2017-02-04] MEDS: DOMEBORO PACKET TP SCH ×5 (04:29→22:06)
[2017-02-04 05:08] LABS: Basophils % (Auto) 0.7 % (0.0-1.8); Eosinophils % (Auto) 5.3 % (0.0-4.3); Hematocrit 27.9 % (35.5-45.6); Hemoglobin 9.5 gm/dl (11.8-15.2); Mean Corpuscular HGB Conc 34 % (32-34); Mean Corpuscular Hemoglobin 26 pg (28-32); Mean Corpuscular Volume 77 fl (84-94); Platelet Count 315 K/mm3 (140-440); Red Blood Count 3.62 M/mm3 (3.65-5.03); White Blood Count 12.4 K/mm3 (4.5-11.0)
[2017-02-04 05:13] LABS: Red Cell Distribution Width 21.9 % (13.2-15.2)
[2017-02-04 05:25] LABS: Calcium 7.8 mg/dL (8.4-10.2); Chloride 102.3 mmol/L (98-107); Potassium 3.7 mmol/L (3.6-5.0)
--- NOTE | 2017-02-04 08:29 | Progress Note ---
Assessment and Plan Assessment and plan: 42-year-old -[place] male with past medical history significant for diabetes mellitus, hypertension, CKD, hirnadenitis suppurativa presented to the emergency department complaining of bleeding from hirnadenitis suppurativa, perianal area. Bleeding is massive and it decreased his hemoglobin to 5.1. Patient is also complaining weakness, tiredness but denied cough, chest pain, shortness of breath. Patient is complaining pain from the site 7 out of 10 in intensity, constant with no radiation. Patient denied fever or chills. Patient had hirnadenitis suppurativa on bilateral arm pits and left chest, but the one on the perianal area started a month ago. Patient was admitted here previously for hirnadenitis suppurativa and was treated with IV antibiotics and surgery had evaluated as a time. Patient is noncompliant with his medications, ran out of his blood pressure medication for the last 2 days, and been off insulin because his blood sugar has been usually within normal limits. Patient also complains of bilateral leg swelling. Cellulitis Wound culture grew MRSA ID input appreciated, Zyvox x 14 days Severe anemia secondary to bleeding from hidradenitis suppurativa Hidradenitis suppurativa Sepsis Uncontrolled hypertension Diabetes mellitus diet controlled Chronic kidney disease - Patient is on IV vancomycin and Zosyn - ID & nephrology consult appreciated - Dr alaniz plastic surgeon was consulted, patient was seen by PA/PATHOLOGY LABORATORY TECHNOLOGIST from his office but no note - accu check - Hemoglobin stable - Surgery consulted, recommendations appreciated DVT - SCDs Disposition - continue inpatient care and wait for Dr Alaniz's evaluation. History Interval history: no fever, no cough, no sob, no bleeding from wounds, no nausea, no CP Hospitalist Physical - Physical exam Narrative exam: Not in cardiopulmonary distress. The patient appeared well nourished and normally developed. Vital signs as documented. Head exam is unremarkable. No scleral icterus . Neck is without jugular venous distension, thyromegaly, or carotid bruits. Lungs are clear to auscultation. Cardiac exam reveals regular rate and Rhythm. First and second heart sounds normal. No murmurs, rubs or gallops. Abdominal exam reveals normal bowel sounds, no masses, no organomegaly and no aortic enlargement. Extremities +2 pretibial edema. Skin: pus draining ulcers on bilateral arm pits on the left chest, bleeding hirnadenitis in the right groin area, the diaper is dry today. VP PLATFORMS: Alert and oriented 3. No focal weakness. - Constitutional Vitals: Temp Pulse Resp BP Pulse Ox 97.6 F 79 18 149/85 94 02/03/17 22:54 02/03/17 22:54 02/03/17 22:54 02/03/17 22:54 02/03/17 22:54 Results - Labs CBC & Chem 7: 02/04/17 04:46 02/06/17 05:16 Labs: Laboratory Last Values WBC 12.4 K/mm3 (4.5-11.0) H 02/04/17 04:46 RBC 3.62 M/mm3 (3.65-5.03) L 02/04/17 04:46 Hgb 9.5 gm/dl (11.8-15.2) L 02/04/17 04:46 Hct 27.9 % (35.5-45.6) L 02/04/17 04:46 MCV 77 fl (84-94) L 02/04/17 04:46 MCH 26 pg (28-32) L 02/04/17 04:46 MCHC 34 % (32-34) 02/04/17 04:46 RDW 21.9 % (13.2-15.2) H 02/04/17 04:46 Plt Count 315 K/mm3 (140-440) 02/04/17 04:46 Lymph % (Auto) 13.6 % (13.4-35.0) 02/04/17 04:46 [place] % (Auto) 6.3 % (0.0-7.3) 02/04/17 04:46 Eos % (Auto) 5.3 % (0.0-4.3) H 02/04/17 04:46 Baso % (Auto) 0.7 % (0.0-1.8) 02/04/17 04:46 Lymph # 1.7 K/mm3 (1.2-5.4) 02/04/17 04:46 [place] # 0.8 K/mm3 (0.0-0.8) 02/04/17 04:46 Eos # 0.7 K/mm3 (0.0-0.4) H 02/04/17 04:46 Baso # 0.1 K/mm3 (0.0-0.1) 02/04/17 04:46 Seg Neutrophils % 74.1 % (40.0-70.0) H 02/04/17 04:46 Seg Neutrophils # 9.2 K/mm3 (1.8-7.7) H 02/04/17 04:46 Sodium 138 mmol/L (137-145) 02/04/17 04:46 Potassium 3.7 mmol/L (3.6-5.0) 02/04/17 04:46 Chloride 102.3 mmol/L (98-107) 02/04/17 04:46 Carbon Dioxide 23 mmol/L (22-30) 02/04/17 04:46 Anion Gap 16 mmol/L 02/04/17 04:46 BUN 15 mg/dL (9-20) 02/04/17 04:46 Creatinine 3.1 mg/dL (0.8-1.5) H 02/04/17 04:46 Estimated GFR 27 ml/min 02/04/17 04:46 BUN/Creatinine Ratio 5 % 02/04/17 04:46 Glucose 149 mg/dL (75-100) H 02/04/17 04:46 POC Glucose 185 (70-105) H 02/04/17 06:28 Calcium 7.8 mg/dL (8.4-10.2) L 02/04/17 04:46 Troponin T 0.027 ng/mL (0.00-0.029) 01/31/17 08:54 C-Reactive Protein 6.20 mg/dL (0.00-1.30) H 02/01/17 08:43 Triglycerides 92 mg/dL (2-149) 01/31/17 03:23 Cholesterol 125 mg/dL (50-199) 01/31/17 03:23 LDL Cholesterol Direct 80 mg/dL (50-130) 01/31/17 03:23 HDL Cholesterol 27 mg/dL (40-59) L 01/31/17 03:23 Cholesterol/HDL Ratio 4.62 % 01/31/17 03:23 Urine Color Yellow (Yellow) 01/31/17 03:27 Urine Turbidity Clear (Clear) 01/31/17 03:27 Urine pH 6.0 (5.0-7.0) 01/31/17 03:27 Ur Specific [place] 1.013 (1.003-1.030) 01/31/17 03:27 Urine Protein 100 mg/dl mg/dL (Negative) 01/31/17 03:27 Urine Glucose (UA) 50 mg/dL (Negative) 01/31/17 03:27 Urine Ketones Neg mg/dL (Negative) 01/31/17 03:27 Urine Blood Sm (Negative) 01/31/17 03:27 Urine Nitrite Neg (Negative) 01/31/17 03:27 Urine Bilirubin Neg (Negative) 01/31/17 03:27 Urine Urobilinogen 2.0 mg/dL (<2.0) 01/31/17 03:27 Ur Leukocyte Esterase Mod (Negative) 01/31/17 03:27 Urine WBC (Auto) 33.0 /HPF (0.0-6.0) H 01/31/17 03:27 Urine RBC (Auto) 16.0 /HPF (0.0-6.0) 01/31/17 03:27 U Epithel Cells (Auto) < 1.0 /HPF (0-13.0) 01/31/17 03:27 Urine Bacteria (Auto) 1+ /HPF (Negative) 01/31/17 03:27 Amorphous Crystals Few 01/31/17 03:27 Hyaline Casts 1 /LPF 01/31/17 03:27 Urine Mucus Few /HPF 01/31/17 03:27 Random Vancomycin 17.3 ug/mL (0-40.0) 02/04/17 04:46 Blood Type O POSITIVE 01/31/17 08:25 Antibody Screen Negative 01/31/17 08:25 Crossmatch See Detail 01/31/17 08:25
[2017-02-04] MEDS: COREG PO SCH ×2 (10:07→22:01)
[2017-02-04] MEDS: FEOSOL PO SCH ×2 (10:07→22:01)
[2017-02-04] MEDS: NORVASC PO SCH (10:08)
--- NOTE | 2017-02-04 11:58 | Progress Note ---
Assessment and Plan impression * Renal insufficiency. Most , likely chronic * Anemia * Hidradenitis * Hypertension * Diabetes Impression * His serum creatinine noted to be slightly higher. Suspected possible prerenal component. Patient advised to increase his fluid intake * Patient most likely has underlying chronic kidney disease. I do not see any results of renal ultrasound or urine studies. Shall re-order * He may have underlying hypertensive nephrosclerosis and/or diabetic nephropathy * Would recommend avoiding the use of nephrotoxins * Packed RBC transfusion as needed * Continue Procrit * His blood pressure is noted to be elevated. Follow up results of renin Ruben ratio. Add Aldactone Subjective Date of service: 02/04/17 Principal diagnosis: hidradenitis supurativa Interval history: Patient complains of some diarrhea. No nausea or vomiting. No shortness of breath. Objective - Vital Signs Vital signs: Vital Signs - 12hr 02/04/17 08:00 Temperature 98.6 F Pulse Rate 97 H Respiratory 20 Rate Blood Pressure 178/111 [Left] O2 Sat by Pulse 97 Oximetry - General Appearance General appearance: well-developed, well-nourished, appears stated age EENT: PERRL, mucous membranes moist Neck: no JVD, no thyromegaly, no carotid bruit, supple Respiratory: Present: Clear to Ascultation, Other (dressing noted in both his axilla) Cardiology: regular, normal heart rate, S1S2, no murmurs Gastrointestinal: normal, normoactive bowel sounds Integumentary: other (1+ edema in lower extremities) - Lab 02/04/17 04:46 02/04/17 04:46 Most recent lab results Calcium 7.8 mg/dL (8.4-10.2) L 02/04/17 04:46
[2017-02-04] MEDS: ALDACTONE PO SCH ×2 (13:25→22:01)
--- NOTE | 2017-02-04 13:48 | Progress Note ---
Assessment and Plan Assessment: 1) Sepsis: better. Etiology - hidradenitis supurativa with superimposed bacterial infection Left axilla more than Right axilla +/- UTI. 2) Hidradenitis supurativa with superimposed MRSA infection Left axilla -followed at the [facility] wound care center and ID Dr Fall in the past -wound cultures in Apr 2016 grew MSSA, but previous outpatient wound cultures grew MRSA. -CRP=6 -US limited study + 2cm collection 3) UTI 4) NOLAN on CKD 5) Diabetes mellitus 6) legal blindness 7) Anemia - severe Plan: -stop zosyn -continue vancomcyin -contact isolation in view of MRSA -follow-up blood cultures, wound culture -Plastic surgery eval -upon discharge will do zyvox 600 mg po q12h total 14 days-needs renal case manager to request zyvox patient curriculum assistant principal program Thank you Dr Gaytan for your consultation, will follow up with you. Petrona Patterson MD Infectious Diseases Specialist [facility] ([facility]) M [phone] O [phone] Subjective Date of service: 02/04/17 Principal diagnosis: hidradenitis supurativa Interval history: Feels ok, left axilla better, still draining no fever Microbiology: Blood cultures: 01/31 ngtd Urine cultures: 01/31 neg Wound cultures: 02/01 Left axilla MRSA Current Antimicrobials: Zosyn 01/31 Vancomycin 01/31 Objective - Exam Narrative Exam: General appearance: Alert in NAD, conversant Eyes: anicteric sclerae, moist conjunctivae; no lid-lag; PERRLA HENT: Atraumatic; oropharynx clear with moist mucous membranes and no mucosal ulcerations/no oral thrush; normal hard and soft palate. Normal external ears. Neck: Trachea midline; supple, no thyromegaly or lymphadenopathy Lungs: CTA, with normal respiratory effort and no intercostal retractions CV: RRR, no murmurs Abdomen: Soft, non-tender; no masses or hepatosplenomegaly Extremities: No peripheral edema or extremity lymphadenopathy Skin: left axilary severe fold with purulent exudate, right axila with HS lesions, right groin with skin tear Psych: Appropriate affect, alert and oriented to person, place and time. Neuro: alert and oriented x 3. Moving all extermities Lines: No CVL / PICC - Constitutional Vitals: Vital Signs Temp Pulse Resp BP Pulse Ox 98.6 F 97 H 20 178/111 97 02/04/17 08:00 02/04/17 08:00 02/04/17 08:00 02/04/17 08:00 02/04/17 08:00 Temperature -Last 24 Hours Temperature 98.6 F Temperature 97.6 F Temperature 97.7 F - Labs CBC & Chem 7: 02/04/17 04:46 02/04/17 04:46 Labs: Abnormal lab results 02/03/17 02/03/17 02/04/17 Range/Units 17:09 20:58 04:46 WBC (4.5-11.0) K/mm3 RBC (3.65-5.03) M/mm3 Hgb (11.8-15.2) gm/dl Hct (35.5-45.6) % MCV (84-94) fl MCH (28-32) pg RDW (13.2-15.2) % Eos % (Auto) (0.0-4.3) % Eos # (0.0-0.4) K/mm3 Seg Neutrophils % (40.0-70.0) % Seg Neutrophils # (1.8-7.7) K/mm3 Creatinine 3.1 H (0.8-1.5) mg/dL Glucose 149 H (75-100) mg/dL POC Glucose 145 H 213 H (70-105) Calcium 7.8 L (8.4-10.2) mg/dL 02/04/17 02/04/17 02/04/17 Range/Units 04:46 06:28 12:06 WBC 12.4 H (4.5-11.0) K/mm3 RBC 3.62 L (3.65-5.03) M/mm3 Hgb 9.5 L (11.8-15.2) gm/dl Hct 27.9 L (35.5-45.6) % MCV 77 L (84-94) fl MCH 26 L (28-32) pg RDW 21.9 H (13.2-15.2) % Eos % (Auto) 5.3 H (0.0-4.3) % Eos # 0.7 H (0.0-0.4) K/mm3 Seg Neutrophils % 74.1 H (40.0-70.0) % Seg Neutrophils # 9.2 H (1.8-7.7) K/mm3 Creatinine (0.8-1.5) mg/dL Glucose (75-100) mg/dL POC Glucose 185 H 149 H (70-105) Calcium (8.4-10.2) mg/dL
[2017-02-04] MEDS ORDERED: VANCOMYCIN 1,500 MG in NACL 0.9% 500 ML 500 ML IV ONE (14:00)
[2017-02-04] MEDS: PERCOCET 5/325 PO PRN ×2 (17:55→22:00)
[2017-02-04] MEDS: ZOSYN/NS 2.25 GM/50ML 2.25 GM/50 ML BAG IV SCH ×2 (18:30→19:34)
[2017-02-04 19:14] LABS: Fractional Sodium Excretion 2.3
[2017-02-04 19:35] LABS: Bacteria,Urine 1+ /HPF (Negative); Bilirubin,Urine NEG (Negative); Blood,Urine MOD (Negative); Ketones,Urine NEG (Negative); Leukocyte Esterase,Urine TR (Negative); Mucus,Urine FEW /HPF; Nitrite,Urine NEG (Negative); Urobilinogen,Urine < 2.0 mg/dL (<2.0)
[2017-02-04] MEDS: PRAVACHOL PO SCH (22:02)
[2017-02-05] MEDS: ZOSYN/NS 2.25 GM/50ML 2.25 GM/50 ML BAG IV SCH ×2 (00:44→05:43)
[2017-02-05] MEDS: PERCOCET 5/325 PO PRN ×4 (05:44→21:40)
--- NOTE | 2017-02-05 09:36 | Ultrasound Report ---
FINAL REPORT PROCEDURE: US RENAL BILAT TECHNIQUE: Real-time sonography in multiple planes of the kidneys, ureters and urinary bladder was performed with image documentation. CPT 86354 HISTORY: CKD COMPARISON: None FINDINGS: RIGHT kidney: Normal echotexture. No focal renal mass, calculus, or hydronephrosis. Length: 11.7 cm. LEFT kidney: Normal echotexture. No focal renal mass, calculus, or hydronephrosis. Length: 13.3cm. Bladder: Normal. IMPRESSION: Normal Examination.
[2017-02-05] MEDS: DOMEBORO PACKET TP SCH ×4 (10:10→21:15)
--- NOTE | 2017-02-05 10:51 | Progress Note ---
Assessment and Plan impression * Renal insufficiency. Most , likely chronic * Anemia * Hidradenitis * Hypertension * Diabetes Impression * His renal function appears to be stable. * His urine shows 2+ dipstick protein and moderate blood. Shall check vasculitis workup. Shall also check urine protein creatinine ratio * Renal ultrasound is essentially normal . * Patient most likely has underlying chronic kidney disease. However he may have a component of acute kidney injury as well . He may have GN related to his infection. May need to consider a kidney biopsy once his infection is under control * He may have underlying hypertensive nephrosclerosis and/or diabetic nephropathy * Would recommend avoiding the use of nephrotoxins * Packed RBC transfusion as needed * Continue Procrit * His blood pressure is still elevated. Follow up results of renin Ruben ratio. Shall adjust his antihypertensive meds Subjective Date of service: 02/05/17 Principal diagnosis: hidradenitis supurativa Interval history: Patient is comfortable. Denies any shortness of breath. No nausea vomiting or diarrhea Objective - Vital Signs Vital signs: Vital Signs - 12hr 02/04/17 02/05/17 02/05/17 23:00 05:44 07:50 Temperature 98.3 F Pulse Rate 81 Respiratory 20 20 18 Rate Blood Pressure 187/112 O2 Sat by Pulse 97 Oximetry - General Appearance General appearance: well-developed, well-nourished, appears stated age EENT: PERRL, mucous membranes moist Neck: no JVD, no thyromegaly, no carotid bruit, supple Respiratory: Present: Clear to Ascultation, Other (dressing noted in both his axillary areas) Cardiology: regular, normal heart rate, S1S2, no murmurs Gastrointestinal: normal, normoactive bowel sounds Integumentary: no rash, other (1+ edema) - Lab 02/04/17 04:46 02/04/17 19:35 Most recent lab results Calcium 7.8 mg/dL (8.4-10.2) L 02/04/17 04:46 Urine Creatinine 62.3 mg/dL (0.1-20.0) H 02/04/17 18:50 Urine Sodium 78 mmol/L 02/04/17 18:50
[2017-02-05] MEDS ORDERED: COZAAR PO SCH (11:00)
--- NOTE | 2017-02-05 11:09 | Progress Note ---
Assessment and Plan Assessment: 1) Sepsis: better. Etiology - hidradenitis supurativa with superimposed bacterial infection Left axilla more than Right axilla +/- UTI. 2) Hidradenitis supurativa with superimposed MRSA infection Left axilla -followed at the [facility] wound care center and ID Dr Fall in the past -wound cultures in Apr 2016 grew MSSA, but previous outpatient wound cultures grew MRSA. -CRP=6 -US limited study + 2cm collection 3) UTI 4) NOLAN on CKD 5) Diabetes mellitus 6) legal blindness 7) Anemia - severe Plan: -ok to change to PO zyvox -contact isolation in view of MRSA -Plastic surgery eval as outpatient -upon discharge will do zyvox 600 mg po q12h total 14 days-needs leather case finisher to request zyvox patient broker assistant program Thank you Dr Gaytan for your consultation, will follow up with you. Petrona Patterson MD Infectious Diseases Specialist [facility] ([facility]) M [phone] O [phone] Subjective Date of service: 02/05/17 Principal diagnosis: hidradenitis supurativa Interval history: Feels ok, left axilla better, still draining no fever Microbiology: Blood cultures: 01/31 ngtd Urine cultures: 01/31 neg Wound cultures: 02/01 Left axilla MRSA Current Antimicrobials: Vancomycin 01/31 Previous Antimicrobials: Zosyn 01/31 Objective - Exam Narrative Exam: General appearance: Alert in NAD, conversant Eyes: anicteric sclerae, moist conjunctivae; no lid-lag; PERRLA HENT: Atraumatic; oropharynx clear with moist mucous membranes and no mucosal ulcerations/no oral thrush; normal hard and soft palate. Normal external ears. Neck: Trachea midline; supple, no thyromegaly or lymphadenopathy Lungs: CTA, with normal respiratory effort and no intercostal retractions CV: RRR, no murmurs Abdomen: Soft, non-tender; no masses or hepatosplenomegaly Extremities: No peripheral edema or extremity lymphadenopathy Skin: left axilary severe fold with purulent exudate, right axila with HS lesions, right groin with skin tear Psych: Appropriate affect, alert and oriented to person, place and time. Neuro: alert and oriented x 3. Moving all extermities Lines: No CVL / PICC - Constitutional Vitals: Vital Signs Temp Pulse Resp BP Pulse Ox 98.3 F 81 18 187/112 97 02/05/17 07:50 02/05/17 07:50 02/05/17 07:50 02/05/17 07:50 02/05/17 07:50 Temperature -Last 24 Hours Temperature 98.3 F Temperature 98.2 F Temperature 98.5 F - Labs CBC & Chem 7: 02/04/17 04:46 02/04/17 19:35 Labs: Abnormal lab results 02/04/17 02/04/17 02/04/17 Range/Units 12:06 18:17 18:50 Sodium (137-145) mmol/L Creatinine (0.8-1.5) mg/dL POC Glucose 149 H 151 H (70-105) Urine Creatinine 62.3 H (0.1-20.0) mg/dL 02/04/17 02/04/17 02/05/17 Range/Units 19:35 21:55 05:19 Sodium 134 L (137-145) mmol/L Creatinine 3.0 H (0.8-1.5) mg/dL POC Glucose 108 H 172 H (70-105) Urine Creatinine (0.1-20.0) mg/dL
[2017-02-05] MEDS: FEOSOL PO SCH ×2 (12:15→21:14)
[2017-02-05] MEDS: COREG PO SCH ×2 (12:15→21:13)
[2017-02-05] MEDS: NORVASC PO SCH (12:17)
[2017-02-05] MEDS: ALDACTONE PO SCH ×2 (12:17→21:14)
[2017-02-05] MEDS: ZESTRIL PO SCH (16:01)
[2017-02-05] MEDS: ZYVOX PO SCH ×2 (16:01→23:03)
--- NOTE | 2017-02-05 16:26 | Progress Note ---
Assessment and Plan Assessment and plan: 42-year-old -Nepalese male with past medical history significant for diabetes mellitus, hypertension, CKD, hirnadenitis suppurativa presented to the emergency department complaining of bleeding from hirnadenitis suppurativa, perianal area. Bleeding is massive and it decreased his hemoglobin to 5.1. Patient is also complaining weakness, tiredness but denied cough, chest pain, shortness of breath. Patient is complaining pain from the site 7 out of 10 in intensity, constant with no radiation. Patient denied fever or chills. Patient had hirnadenitis suppurativa on bilateral arm pits and left chest, but the one on the perianal area started a month ago. Patient was admitted here previously for hirnadenitis suppurativa and was treated with IV antibiotics and surgery had evaluated as a time. Patient is noncompliant with his medications, ran out of his blood pressure medication for the last 2 days, and been off insulin because his blood sugar has been usually within normal limits. Patient also complains of bilateral leg swelling. Cellulitis Wound culture grew MRSA ID input appreciated, Zyvox x 14 days Severe anemia secondary to bleeding from hidradenitis suppurativa acute blood loss anemia Hidradenitis suppurativa Sepsis continue sepsis pathway Uncontrolled hypertension optimized meds Diabetes mellitus diet controlled, continue ADA diet Chronic kidney disease avoid nephrotoxins - ID & nephrology consult appreciated - Hemoglobin stable - Surgery consulted, recommendations appreciated DVT - SCDs Disposition . History Interval history: no fever, no cough, no sob, no bleeding from wounds, no nausea, no CP Hospitalist Physical - Physical exam Narrative exam: Not in cardiopulmonary distress. The patient appeared well nourished and normally developed. Vital signs as documented. Head exam is unremarkable. No scleral icterus . Neck is without jugular venous distension, thyromegaly, or carotid bruits. Lungs are clear to auscultation. Cardiac exam reveals regular rate and Rhythm. First and second heart sounds normal. No murmurs, rubs or gallops. Abdominal exam reveals normal bowel sounds, no masses, no organomegaly and no aortic enlargement. Extremities +2 pretibial edema. Skin: pus draining ulcers on bilateral arm pits on the left chest, bleeding hirnadenitis in the right groin area, the diaper is dry today. NETWORKS COMPUTER CONSULTANT: Alert and oriented 3. No focal weakness. - Constitutional Vitals: Temp Pulse Resp BP Pulse Ox 98.3 F 81 18 187/112 97 02/05/17 07:50 02/05/17 12:17 02/05/17 07:50 02/05/17 12:17 02/05/17 07:50 Results - Labs CBC & Chem 7: 02/04/17 04:46 02/06/17 05:16 Labs: Laboratory Last Values WBC 12.4 K/mm3 (4.5-11.0) H 02/04/17 04:46 RBC 3.62 M/mm3 (3.65-5.03) L 02/04/17 04:46 Hgb 9.5 gm/dl (11.8-15.2) L 02/04/17 04:46 Hct 27.9 % (35.5-45.6) L 02/04/17 04:46 MCV 77 fl (84-94) L 02/04/17 04:46 MCH 26 pg (28-32) L 02/04/17 04:46 MCHC 34 % (32-34) 02/04/17 04:46 RDW 21.9 % (13.2-15.2) H 02/04/17 04:46 Plt Count 315 K/mm3 (140-440) 02/04/17 04:46 Lymph % (Auto) 13.6 % (13.4-35.0) 02/04/17 04:46 [place] % (Auto) 6.3 % (0.0-7.3) 02/04/17 04:46 Eos % (Auto) 5.3 % (0.0-4.3) H 02/04/17 04:46 Baso % (Auto) 0.7 % (0.0-1.8) 02/04/17 04:46 Lymph # 1.7 K/mm3 (1.2-5.4) 02/04/17 04:46 [place] # 0.8 K/mm3 (0.0-0.8) 02/04/17 04:46 Eos # 0.7 K/mm3 (0.0-0.4) H 02/04/17 04:46 Baso # 0.1 K/mm3 (0.0-0.1) 02/04/17 04:46 Seg Neutrophils % 74.1 % (40.0-70.0) H 02/04/17 04:46 Seg Neutrophils # 9.2 K/mm3 (1.8-7.7) H 02/04/17 04:46 Sodium 134 mmol/L (137-145) L 02/04/17 19:35 Potassium 3.7 mmol/L (3.6-5.0) 02/04/17 04:46 Chloride 102.3 mmol/L (98-107) 02/04/17 04:46 Carbon Dioxide 23 mmol/L (22-30) 02/04/17 04:46 Anion Gap 16 mmol/L 02/04/17 04:46 BUN 15 mg/dL (9-20) 02/04/17 04:46 Creatinine 3.0 mg/dL (0.8-1.5) H 02/04/17 19:35 Estimated GFR 27 ml/min 02/04/17 04:46 BUN/Creatinine Ratio 5 % 02/04/17 04:46 Glucose 149 mg/dL (75-100) H 02/04/17 04:46 POC Glucose 150 (70-105) H 02/05/17 12:31 Calcium 7.8 mg/dL (8.4-10.2) L 02/04/17 04:46 Troponin T 0.027 ng/mL (0.00-0.029) 01/31/17 08:54 C-Reactive Protein 6.20 mg/dL (0.00-1.30) H 02/01/17 08:43 Triglycerides 92 mg/dL (2-149) 01/31/17 03:23 Cholesterol 125 mg/dL (50-199) 01/31/17 03:23 LDL Cholesterol Direct 80 mg/dL (50-130) 01/31/17 03:23 HDL Cholesterol 27 mg/dL (40-59) L 01/31/17 03:23 Cholesterol/HDL Ratio 4.62 % 01/31/17 03:23 Urine Color Straw (Yellow) 02/04/17 18:50 Urine Turbidity Clear (Clear) 02/04/17 18:50 Urine pH 7.0 (5.0-7.0) 02/04/17 18:50 Ur Specific Metter 1.009 (1.003-1.030) 02/04/17 18:50 Urine Protein 100 mg/dl mg/dL (Negative) 02/04/17 18:50 Urine Glucose (UA) 50 mg/dL (Negative) 02/04/17 18:50 Urine Ketones Neg mg/dL (Negative) 02/04/17 18:50 Urine Blood Mod (Negative) 02/04/17 18:50 Urine Nitrite Neg (Negative) 02/04/17 18:50 Urine Bilirubin Neg (Negative) 02/04/17 18:50 Urine Urobilinogen < 2.0 mg/dL (<2.0) 02/04/17 18:50 Ur Leukocyte Esterase Tr (Negative) 02/04/17 18:50 Urine WBC (Auto) 6.0 /HPF (0.0-6.0) 02/04/17 18:50 Urine RBC (Auto) 15.0 /HPF (0.0-6.0) 02/04/17 18:50 U Epithel Cells (Auto) < 1.0 /HPF (0-13.0) 01/31/17 03:27 Urine Bacteria (Auto) 1+ /HPF (Negative) 02/04/17 18:50 Amorphous Crystals Few 01/31/17 03:27 Hyaline Casts 1 /LPF 01/31/17 03:27 Urine Mucus Few /HPF 02/04/17 18:50 Urine Eosinophils None seen (None Seen) 02/04/17 18:50 Urine Creatinine 62.3 mg/dL (0.1-20.0) H 02/04/17 18:50 Urine Sodium 78 mmol/L 02/04/17 18:50 Fraction Sodium Excret 2.3 02/04/17 18:50 Random Vancomycin 17.3 ug/mL (0-40.0) 02/04/17 04:46 Hepatitis A IgM Ab Non-reactive (NonReactive) 02/05/17 11:35 Hep B Core IgM Ab Non-reactive (NonReactive) 02/05/17 11:35 Hepatitis C Antibody Non-reactive (NonReactive) 02/05/17 11:35 Blood Type O POSITIVE 01/31/17 08:25 Antibody Screen Negative 01/31/17 08:25 Crossmatch See Detail 01/31/17 08:25
[2017-02-05] MEDS: PRAVACHOL PO SCH (21:14)
[2017-02-06 06:05] LABS: Albumin/Globulin Ratio 0.4 %; Bilirubin,Total 0.2 mg/dL (0.1-1.2); Chloride 105.2 mmol/L (98-107); Potassium 3.7 mmol/L (3.6-5.0); Total Protein 7.7 g/dL (6.3-8.2)
[2017-02-06 10:05] VITALS: BP 171/108
--- NOTE | 2017-02-06 10:23 | Progress Note ---
Assessment and Plan impression * Renal insufficiency. Most , likely chronic * Anemia * Hidradenitis * Hypertension * Diabetes Impression * His renal function appears to be stable. * His urine shows 2+ dipstick protein and moderate blood. Follow-up results of vasculitis workup. His urine protein creatinine ratio is however minimal * Renal ultrasound is essentially normal . * Patient most likely has underlying chronic kidney disease. However he may have a component of acute kidney injury as well . He may have GN related to his infection. May need to consider a kidney biopsy once his infection is under control * He may have underlying hypertensive nephrosclerosis and/or diabetic nephropathy * Would recommend avoiding the use of nephrotoxins * Packed RBC transfusion as needed * Continue Procrit * His blood pressure is still elevated. Follow up results of renin Ruben ratio. Shall adjust his antihypertensive meds Subjective Date of service: 02/06/17 Principal diagnosis: hidradenitis supurativa Interval history: Patient is comfortable today. Denies any shortness of breath. Still has some diarrhea. Objective - Vital Signs Vital signs: Vital Signs - 12hr 02/05/17 02/06/17 22:40 08:06 Temperature 98.5 F Pulse Rate 74 Respiratory 20 18 Rate Blood Pressure 171/108 O2 Sat by Pulse 100 Oximetry - General Appearance General appearance: well-developed, well-nourished, appears stated age EENT: ATNC Neck: no JVD, no thyromegaly, no carotid bruit, supple Respiratory: Present: Clear to Ascultation Cardiology: regular, normal heart rate, S1S2, no murmurs Gastrointestinal: normal, normoactive bowel sounds Integumentary: other (1+ edema) Neurologic: no focal deficit - Lab 02/04/17 04:46 02/06/17 05:16 Most recent lab results Calcium 8.0 mg/dL (8.4-10.2) L 02/06/17 05:16 Urine Creatinine < 4.2 mg/dL (0.1-20.0) 02/06/17 05:11 Urine Sodium 78 mmol/L 02/04/17 18:50 Urine Total Protein < 4 mg/dL (5-11.8) L 02/06/17 05:11
[2017-02-06] MEDS: COREG PO SCH (11:13)
[2017-02-06] MEDS: ZESTRIL PO SCH (11:13)
[2017-02-06] MEDS: NORVASC PO SCH (11:13)
[2017-02-06] MEDS: FEOSOL PO SCH (11:14)
[2017-02-06] MEDS: ALDACTONE PO SCH (11:14)
[2017-02-06] MEDS: DOMEBORO PACKET TP SCH ×2 (11:14→15:03)
[2017-02-06] MEDS: ZYVOX PO SCH (11:15)
[2017-02-06] MEDS ORDERED: CARDURA PO SCH (12:00)
--- NOTE | 2017-02-06 12:59 | Discharge Summary ---
Providers - Providers Date of Admission: 01/31/17 10:32 Attending physician: HEATHER EDGE MD 01/31/17 09:35 Consult to Physician [CONS] Routine Consulting Provider: JEREL HOLT Reason For Exam: hiradenitis suppurativa Place consult to:: General surgeon Notified:: Y Was contact made?: Yes If yes, spoke with:: DR HOLT Time called:: 11:40 01/31/17 09:37 Consult to Physician [CONS] Routine Consulting Provider: NITHYA CABALLERO Reason For Exam: Hiradenitis suppritiva Place consult to:: ID Notified:: Y Was contact made?: Yes If yes, spoke with:: DR HUYNH Time called:: 11:00 01/31/17 09:39 Consult to Physician [CONS] Routine Consulting Provider: ABEL BONILLA Reason For Exam: CKD Place consult to:: CKD/ dr. bonilla Notified:: answering service Phone number called:: Was contact made?: Yes If yes, spoke with:: sunita Time called:: 16:08 01/31/17 10:52 Consult to Physician [CONS] Routine Consulting Provider: MICHELEL RIZVI Reason For Exam: massive bleeding from hirnadenitis, perianal area Place consult to:: vascular surgery Notified:: Y If yes, spoke with:: PURA AARON Time called:: 11:15 02/01/17 09:28 Consult to Physician [CONS] Routine Consulting Provider: SANKET DALY JR Reason For Exam: bleeding hidradenitis Place consult to:: Plastic surgeon Notified:: yes Phone number called:: [phone] Was contact made?: Yes If yes, spoke with:: Tatiana Time called:: 10:35 Comment:: left mess on recorder, 02/02 at 0950 hrs spoke with Tatiana lombardo paged 02/01/17 18:08 Consult to Wound/ET Nurse [CONS] Routine Reason For Exam: wound eval 02/03/17 08:08 Consult to Physician [CONS] Routine Consulting Provider: IRVIN LINTON Reason For Exam: right groin hirnadenitis Place consult to:: general surgery Notified:: OFFICE Phone number called:: [phone] Was contact made?: Yes If yes, spoke with:: MAAME Time called:: 10:08 Comment:: RASHMI NOTIFIED Primary care physician: SEED EXPERT Hospitalization Condition: Stable Hospital course: 42-year-old -Syrian male with past medical history significant for diabetes mellitus, hypertension, CKD, hirnadenitis suppurativa presented to the emergency department complaining of bleeding from hirnadenitis suppurativa, Patient had hirnadenitis suppurativa on bilateral arm pits and left chest, but the one on the perianal area started a month ago. Bleeding is massive and it decreased his hemoglobin to 5.1. Patient is also complaining weakness, tiredness but denied cough, chest pain, shortness of breath. He was found to have MRSA cellulitis/hidradenitis suppurativa. He receives antibiotics, he received ID consultation. And he is being discharged on a course of linezolid. He was also transfused for acute blood loss anemia, bleeding resolved. His blood pressure medication optimized, he clinically improved and he's to follow- up with wound care and plastic surgery for possible skin grafting after the infection has healed. Discharge diagnoses Cellulitis Severe anemia secondary to bleeding from hidradenitis suppurativa acute blood loss anemia Hidradenitis suppurativa Sepsis Uncontrolled hypertension Diabetes mellitus diet controlled, continue ADA diet Chronic kidney disease - Disposition: DC/TX-06 HOME UNDER HOME [facility] Time spent for discharge: 33 minutes Core Measure Documentation - Palliative Care Palliative Care/ Comfort Measures: Not Applicable - Core Measures Any of the following diagnoses?: none Exam - Constitutional Vitals: Temp Pulse Resp BP Pulse Ox 98.5 F 74 18 171/108 100 02/06/17 08:06 02/06/17 08:06 02/06/17 08:06 02/06/17 08:06 02/06/17 08:06 General appearance: Present: no acute distress, well-nourished - EENT Eyes: Present: PERRL ENT: hearing intact, clear oral mucosa - Neck Neck: Present: supple, normal ROM - Respiratory Respiratory effort: normal Respiratory: bilateral: CTA - Cardiovascular Heart Sounds: Present: S1 & S2. Absent: rub, click - Extremities Extremities: pulses symmetrical, No edema Peripheral Pulses: within normal limits - Abdominal General gastrointestinal: Present: soft, non-tender, non-distended, normal bowel sounds Male genitourinary: Present: normal - Integumentary Integumentary: Present: clear, warm, dry (bilateral edema, mucopurulent drainage and erosions involving both armpits and groin) - Musculoskeletal Musculoskeletal: gait normal, strength equal bilaterally - Psychiatric Psychiatric: appropriate mood/affect, intact judgment & insight - Neurologic Neurologic: CNII-XII intact, moves all extremities Plan Follow up with: PRIMARY CARE,MD [Primary Care Provider] - 3-5 Days Prescriptions: Pravastatin [Pravachol] 20 mg PO QHS #30 tablet ALBUTEROL NEB's [Proventil 0.083% NEBS] 2.5 mg IH Q3HRT PRN #120 nebu PRN Reason: Shortness Of Breath amLODIPine [Norvasc] 10 mg PO QDAY #30 tablet Calcium Acetate/Aluminum Sulf [[place] Packet] 1 each TP TID #30 packet Carvedilol [Coreg] 25 mg PO Q12HR #60 tablet Doxazosin [Cardura] 2 mg PO QPM 30 Days tablet Ferrous Sulfate [Feosol 325 MG tab] 325 mg PO BID #60 tablet Insulin NPH/Regular [NovoLIN 70/30] 10 unit SUB-Q BIDDIAB 30 Days #100 units Linezolid [Zyvox] 600 mg PO BID #25 tablet Lisinopril [Zestril TAB] 40 mg PO QDAY #30 tablet oxyCODONE /ACETAMINOPHEN [Percocet 5/325 mg] 1 tab PO Q4H PRN #30 tablet PRN Reason: Pain, Moderate (4-6) Spironolactone [Aldactone] 25 mg PO BID #60 tablet
--- NOTE | 2017-02-06 14:48 | Progress Note ---
Assessment and Plan Assessment: 1) Sepsis: better. Etiology - hidradenitis supurativa with superimposed bacterial infection Left axilla more than Right axilla +/- UTI. 2) Hidradenitis supurativa with superimposed MRSA infection Left axilla -followed at the [facility] wound care center and ID Dr Fall in the past -wound cultures in Apr 2016 grew MSSA, but previous outpatient wound cultures grew MRSA. -CRP=6 -US limited study + 2cm collection 3) UTI 4) NOLAN on CKD 5) Diabetes mellitus 6) legal blindness 7) Anemia - severe Plan: -ok to change to PO zyvox -contact isolation in view of MRSA -Plastic surgery eval as outpatient -upon discharge will do zyvox 600 mg po q12h total 14 days-needs heel caser to request zyvox patient materials assistant program I am signing off Thank you Dr Gaytan for your consultation, will follow up with you. Petrona Patterson MD Infectious Diseases Specialist [facility] ([facility]) M [phone] O [phone] Subjective Date of service: 02/06/17 Principal diagnosis: hidradenitis supurativa Interval history: Feels ok, left axilla better, but still pain and draining no fever Microbiology: Blood cultures: 01/31 ngtd Urine cultures: 01/31 neg Wound cultures: 02/01 Left axilla MRSA Current Antimicrobials: Vancomycin 01/31 Previous Antimicrobials: Zosyn 01/31 Objective - Exam Narrative Exam: General appearance: Alert in NAD, conversant Eyes: anicteric sclerae, moist conjunctivae; no lid-lag; PERRLA HENT: Atraumatic; oropharynx clear with moist mucous membranes and no mucosal ulcerations/no oral thrush; normal hard and soft palate. Normal external ears. Neck: Trachea midline; supple, no thyromegaly or lymphadenopathy Lungs: CTA CV: RRR, no murmurs Abdomen: Soft, non-tender; no masses or hepatosplenomegaly Extremities: No peripheral edema or extremity lymphadenopathy Skin: left axilary severe fold with purulent exudate, right axila with HS lesions, right groin with skin tear Psych: Appropriate affect, alert and oriented to person, place and time. Neuro: alert and oriented x 3. Moving all extermities Lines: No CVL / PICC - Constitutional Vitals: Vital Signs Temp Pulse Resp BP Pulse Ox 98.5 F 74 18 171/108 100 02/06/17 08:06 02/06/17 08:06 02/06/17 08:06 02/06/17 08:06 02/06/17 08:06 Temperature -Last 24 Hours Temperature 98.5 F Temperature 98.2 F Temperature 98.3 F - Labs CBC & Chem 7: 02/04/17 04:46 02/06/17 05:16 Labs: Abnormal lab results 02/05/17 02/05/17 02/06/17 Range/Units 17:02 21:30 05:11 Carbon Dioxide (22-30) mmol/L Creatinine (0.8-1.5) mg/dL Glucose (75-100) mg/dL POC Glucose 123 H 193 H (70-105) Calcium (8.4-10.2) mg/dL ALT (7-56) units/L Albumin (3.9-5) g/dL Urine Total Protein < 4 L (5-11.8) mg/dL 02/06/17 02/06/17 Range/Units 05:16 05:44 Carbon Dioxide 21 L (22-30) mmol/L Creatinine 2.8 H (0.8-1.5) mg/dL Glucose 190 H (75-100) mg/dL POC Glucose 193 H (70-105) Calcium 8.0 L (8.4-10.2) mg/dL ALT 5 L (7-56) units/L Albumin 2.0 L (3.9-5) g/dL Urine Total Protein (5-11.8) mg/dL
[2017-02-16 13:26] LABS: Myeloperoxidase Antibody <1.0 AI (<1.0)
== END 2017-02-06 19:15 | disposition home health service (06) | DRG 872 ==
LOC: ED 02:43 → 3A 10:32
PROVIDERS: ADMIT Internal Medicine; ATTEND Internal Medicine
PROC: 30233N1 Transfusion of Nonautologous Red Blood Cells into Peripheral Vein, Percutaneous Approach (ICD-10-PCS; principal; 2017-01-31)
DX: A41.9 Sepsis, unspecified organism (principal); N39.0 Urinary tract infection, site not specified; N17.9 Acute kidney failure, unspecified; D50.9 Iron deficiency anemia, unspecified; L73.2 Hidradenitis suppurativa; H54.8 Legal blindness, as defined in USA; Z79.4 Long term (current) use of insulin; I12.9 Hypertensive chronic kidney disease with stage 1 through stage 4 chronic kidney disease, or unspecified chronic kidney disease; E11.22 Type 2 diabetes mellitus with diabetic chronic kidney disease; N18.9 Chronic kidney disease, unspecified; Z91.19 Patient's noncompliance with other medical treatment and regimen; E83.51 Hypocalcemia
CPT/HCPCS: 36415; 36430; 76536; 76770; 80048; 80053; 80061; 80074; 80202; 81001; 82088; 82565; 82570; 82962; 84156; 84295; 84300; 84484; 85014; 85018; 85025; 86021; 86038; 86140; 86160; 86225; 86850; 86900; 86901; 86920; 87040; 87076; 87086; 87116; 87186; 89050; 93005; 93010; 96374; 96375; A9270-GY; J0360; J0885; J1170; J1815; J1940; J2270; J2405; J2543; J3370; J7040; P9016

== ENCOUNTER 2017-05-04 08:24 | Outpatient (CLI) | payer MEDICAID ==
[2017-05-04] MEDS ORDERED: XYLOCAINE TOPICAL 4% TP ONE (09:08)
== END 2017-05-04 08:25 | disposition home or self-care (01) ==
LOC: WOUND 08:24
PROVIDERS: ATTEND Internal Medicine
DX: L73.2 Hidradenitis suppurativa (principal); L03.113 Cellulitis of right upper limb; L03.114 Cellulitis of left upper limb; E11.22 Type 2 diabetes mellitus with diabetic chronic kidney disease; I12.9 Hypertensive chronic kidney disease with stage 1 through stage 4 chronic kidney disease, or unspecified chronic kidney disease; N18.9 Chronic kidney disease, unspecified
CPT/HCPCS: 99215; G0463

== ENCOUNTER 2018-09-11 10:26 | Emergency (ER) | payer MEDICARE ==
[2018-09-11] MEDS ORDERED: CATAPRES PO ONE (10:56)
[2018-09-11] MEDS ORDERED: CATAPRES ONE (11:00)
[2018-09-11 11:04] LABS: Hematocrit 27.7 % (35.5-45.6); Hemoglobin 8.7 gm/dl (11.8-15.2); Mean Corpuscular HGB Conc 31 % (32-34); Mean Corpuscular Volume 74 fl (84-94); Platelet Count 288 K/mm3 (140-440); Red Blood Count 3.75 M/mm3 (3.65-5.03)
[2018-09-11 11:06] LABS: Red Cell Distribution Width 21.7 % (13.2-15.2)
[2018-09-11 11:26] LABS: Calcium 8.2 mg/dL (8.4-10.2)
--- NOTE | 2018-09-11 12:13 | Emergency Department Report ---
ED General Adult HPI - General Chief complaint: Recheck/Abnormal Lab/Rx Stated complaint: DIALYSIS/POTASSIUM TEST Time Seen by Provider: 09/11/18 10:43 Source: patient Mode of arrival: Ambulatory Limitations: No Limitations - History of Present Illness Initial comments: Patient is a 43-year-old male past medical history of chronic kidney disease on dialysis Thursday who presents with check for potassium. Patient states that he is not having any pain no shortness of breath no fever no chills. He states that he went to his dialysis today however he was not able to get it done because he missed a couple days and he wanted to make sure his potassium was not too high. Patient has no complaints he's also states that he hasn't been his blood pressure medicine today. Nothing makes his symptoms better and nothing makes them worse. Severity scale (0 -10): 0 - Related Data Previous Rx's Medication Instructions Recorded Last Taken Type ALBUTEROL NEB's [Proventil 0.083% 2.5 mg IH Q3HRT PRN #120 nebu 05/12/17 Unknown Rx NEBS] Amoxicillin/Potassium Clav 1 each PO BID #14 tablet 05/12/17 Unknown Rx [Augmentin 500-125 Tablet] Bisacodyl [Dulcolax suppos] 10 mg [place] QDAY PRN #10 supp.rect 05/12/17 Unknown Rx Calcium Acetate/Aluminum Sulf 1 each TP TID #90 packet 05/12/17 Unknown Rx [[place] Packet] Carvedilol [Coreg] 25 mg PO Q12HR #60 tablet 05/12/17 Unknown Rx DOXYCYCLINE Hyclate [Vibramycin 100 mg PO Q12HR #14 capsule 05/12/17 Unknown Rx CAP] Doxazosin [Cardura] 2 mg PO QPM 30 Days #60 tablet 05/12/17 Unknown Rx Ferrous Sulfate [Feosol 325 MG tab] 325 mg PO BID #60 tablet 05/12/17 Unknown Rx Insulin NPH/Regular [NovoLIN 70/30] 10 unit SUB-Q BIDDIAB 30 Days #1 05/12/17 Unknown Rx vial Pravastatin [Pravachol] 20 mg PO QHS #30 tablet 05/12/17 Unknown Rx Spironolactone [Aldactone] 25 mg PO BID #60 tablet 05/12/17 Unknown Rx amLODIPine [Norvasc] 10 mg PO QDAY #30 tablet 05/12/17 Unknown Rx hydrALAZINE [Apresoline TAB] 25 mg PO Q8HR #90 tablet 05/12/17 Unknown Rx oxyCODONE /ACETAMINOPHEN [Percocet 1 tab PO Q4H PRN #20 tablet 05/12/17 Unknown Rx 5/325 mg] Allergies Allergy/AdvReac Type Severity Reaction Status Date / Time No Known Allergies Allergy Verified 09/11/18 10:27 ED Review of Systems ROS: Stated complaint: DIALYSIS/POTASSIUM TEST Other details as noted in HPI Constitutional: denies: chills, fever Eyes: denies: eye pain, eye discharge, vision change ENT: denies: ear pain, throat pain Respiratory: denies: cough, shortness of breath, wheezing Cardiovascular: denies: chest pain, palpitations Endocrine: no symptoms reported Gastrointestinal: denies: abdominal pain, nausea, diarrhea Genitourinary: denies: urgency, dysuria Musculoskeletal: denies: back pain, joint swelling, arthralgia Skin: denies: rash, lesions Neurological: denies: headache, weakness, paresthesias Psychiatric: denies: anxiety, depression Hematological/Lymphatic: denies: easy bleeding, easy bruising ED Past Medical Hx - Past Medical History Hx Hypertension: Yes Hx Diabetes: Yes Hx Renal Disease: Yes Additional medical history: 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 Iron deficiency anemia - Surgical History Additional Surgical History: eye SX 2016 - Social History Smoking Status: Never Smoker Substance Use Type: Prescribed - Medications Home Medications: Home Medications Medication Instructions Recorded Confirmed Last Taken Type ALBUTEROL NEB's [Proventil 0.083% 2.5 mg IH Q3HRT PRN #120 nebu 05/12/17 Unknown Rx NEBS] Amoxicillin/Potassium Clav 1 each PO BID #14 tablet 05/12/17 Unknown Rx [Augmentin 500-125 Tablet] Bisacodyl [Dulcolax suppos] 10 mg [place] QDAY PRN #10 supp.rect 05/12/17 Unknown Rx Calcium Acetate/Aluminum Sulf 1 each TP TID #90 packet 05/12/17 Unknown Rx [[place] Packet] Carvedilol [Coreg] 25 mg PO Q12HR #60 tablet 05/12/17 Unknown Rx DOXYCYCLINE Hyclate [Vibramycin 100 mg PO Q12HR #14 capsule 05/12/17 Unknown Rx CAP] Doxazosin [Cardura] 2 mg PO QPM 30 Days #60 tablet 05/12/17 Unknown Rx Ferrous Sulfate [Feosol 325 MG tab] 325 mg PO BID #60 tablet 05/12/17 Unknown Rx Insulin NPH/Regular [NovoLIN 70/30] 10 unit SUB-Q BIDDIAB 30 Days #1 05/12/17 Unknown Rx vial Pravastatin [Pravachol] 20 mg PO QHS #30 tablet 05/12/17 Unknown Rx Spironolactone [Aldactone] 25 mg PO BID #60 tablet 05/12/17 Unknown Rx amLODIPine [Norvasc] 10 mg PO QDAY #30 tablet 05/12/17 Unknown Rx hydrALAZINE [Apresoline TAB] 25 mg PO Q8HR #90 tablet 05/12/17 Unknown Rx oxyCODONE /ACETAMINOPHEN [Percocet 1 tab PO Q4H PRN #20 tablet 05/12/17 Unknown Rx 5/325 mg] ED Physical Exam - General Limitations: No Limitations General appearance: alert, in no apparent distress - Head Head exam: Present: atraumatic, normocephalic - Eye Eye exam: Present: normal appearance - ENT ENT exam: Present: mucous membranes moist - Neck Neck exam: Present: normal inspection - Respiratory Respiratory exam: Present: normal lung sounds bilaterally. Absent: respiratory distress - Cardiovascular Cardiovascular Exam: Present: regular rate, normal rhythm. Absent: systolic murmur, diastolic murmur, rubs, gallop - GI/Abdominal GI/Abdominal exam: Present: soft, normal bowel sounds - Rectal Rectal exam: Present: deferred - Extremities Exam Extremities exam: Present: normal inspection - Back Exam Back exam: Present: normal inspection - Neurological Exam Neurological exam: Present: alert, oriented X3 - Psychiatric Psychiatric exam: Present: normal affect, normal mood - Skin Skin exam: Present: warm, dry, intact, normal color. Absent: rash ED Course Vital Signs 09/11/18 09/11/18 09/11/18 10:30 10:39 10:57 Temperature 98.3 F 97.9 F Pulse Rate 88 100 H 88 Respiratory 18 18 Rate Blood Pressure 195/120 208/119 Blood Pressure 208/119 [Left] O2 Sat by Pulse 100 100 Oximetry 07/06/19 07/06/19 07/06/19 11:05 11:51 12:22 Temperature Pulse Rate 83 81 Respiratory 15 15 17 Rate Blood Pressure Blood Pressure 200/119 190/112 [Left] O2 Sat by Pulse 100 100 100 Oximetry ED Medical Decision Making - Lab Data Result diagrams: 09/11/18 10:51 09/11/18 10:51 Lab Results 09/11/18 09/11/18 Range/Units 10:51 10:51 WBC 8.9 (4.5-11.0) K/mm3 RBC 3.75 (3.65-5.03) M/mm3 Hgb 8.7 L (11.8-15.2) gm/dl Hct 27.7 L (35.5-45.6) % MCV 74 L (84-94) fl MCH 23 L (28-32) pg MCHC 31 L (32-34) % RDW 21.7 H (13.2-15.2) % Plt Count 288 (140-440) K/mm3 Sodium 138 (137-145) mmol/L Potassium 3.5 L (3.6-5.0) mmol/L Chloride 106.2 (98-107) mmol/L Carbon Dioxide 17 L (22-30) mmol/L Anion Gap 18 mmol/L BUN 39 H (9-20) mg/dL Creatinine 7.7 H (0.8-1.5) mg/dL Estimated GFR 9 ml/min BUN/Creatinine Ratio 5 % Glucose 214 H (75-100) mg/dL Calcium 8.2 L (8.4-10.2) mg/dL - Medical Decision Making Chief medical diagnosis: Hypertensive urgency Differential medical diagnosis: Medical clearance for dialysis, hyperkalemia I will get blood work and I'll give patient oral clonidine to lower his blood pressure. Patient's lab workup was unremarkable for hyperkalemia patient is okay for discharge to get his dialysis today. Additional verbal discharge instructions were given. Critical care attestation.: If time is entered above; I have spent that time in minutes in the direct care of this critically ill patient, excluding procedure time. ED Disposition Clinical Impression: Hypokalemia, Encounter for medical clearance for patient hold, Hypertensive urgency Disposition: DC-01 TO HOME OR SELFCARE Is pt being admited?: No Does the pt Need Aspirin: No Condition: Stable Instructions: Hypertension (ED) Referrals: YOLA DE LA ROSA MD [Primary Care Provider] - 3-5 Days
[2018-09-11 12:23] VITALS: BP 190/112
[2018-09-11 13:08] LABS: Total Cells Counted 100
[2018-09-11 13:10] LABS: Anisocytosis 1+; Hypochromasia 1+; Platelet Estimate Consistent w Auto
== END 2018-09-11 12:28 | disposition home or self-care (01) ==
LOC: ED 10:26
DX: E87.6 Hypokalemia (principal); I16.0 Hypertensive urgency; I12.0 Hypertensive chronic kidney disease with stage 5 chronic kidney disease or end stage renal disease; E11.22 Type 2 diabetes mellitus with diabetic chronic kidney disease; N18.6 End stage renal disease; Z79.4 Long term (current) use of insulin; Z99.2 Dependence on renal dialysis
CPT/HCPCS: 36415; 80048; 85007; 85025; 99283

== ENCOUNTER 2018-12-31 02:35 | Inpatient (IN) | payer MEDICARE ==
[2018-12-31] MEDS ORDERED: cloNIDine 0.2 MG TAB PO ONE (04:19)
[2018-12-31 05:11] LABS: Hematocrit 26.5 % (35.5-45.6); Hemoglobin 8.5 gm/dl (11.8-15.2); Mean Corpuscular HGB Conc 32 % (32-34); Mean Corpuscular Volume 72 fl (84-94); Platelet Count 181 K/mm3 (140-440); Red Blood Count 3.71 M/mm3 (3.65-5.03); Red Cell Distribution Width 18.9 % (13.2-15.2)
[2018-12-31] MEDS ORDERED: HYDROcodone/ACETAMINOPHEN 5-325 MG TAB PO ONE (05:12)
[2018-12-31 05:19] LABS: Calcium 8.7 mg/dL (8.4-10.2)
[2018-12-31 05:26] LABS: INR 1.09 (0.87-1.13); Partial Thromboplastin Time 28.4 Sec. (24.2-36.6)
[2018-12-31] MEDS ORDERED: ONDANSETRON 4 MG/2 ML INJ IV ONE (06:23)
[2018-12-31] MEDS ORDERED: MORPHINE 2 MG/1 ML INJ IV ONE (06:23)
[2018-12-31] MEDS ORDERED: LABETALOL 20 MG/4 ML INJ IV ONE (06:24)
[2018-12-31] MEDS ORDERED: VANCOMYCIN/NS 1 GM/250 ML 1 GM/250 ML BAG IV ONE ×2 (06:25→14:00)
--- NOTE | 2018-12-31 06:54 | XRay Report ---
CHEST 1 VIEW INDICATION / CLINICAL INFORMATION: hypertension. COMPARISON: None available. FINDINGS: SUPPORT DEVICES: Right IJ central venous line terminates in the level the right atrium.. HEART / MEDIASTINUM: No significant abnormality. LUNGS / PLEURA: No significant pulmonary or pleural abnormality. No pneumothorax. ADDITIONAL FINDINGS: No significant additional findings. IMPRESSION: 1. No acute findings. Signer Name: Олег Maria MD Signed: 12/31/2018 6:50 AM Workstation Name: [id number]
[2018-12-31 07:22] LABS: INR 1.09 (0.87-1.13)
[2018-12-31 07:23] LABS: Partial Thromboplastin Time 29.2 Sec. (24.2-36.6)
[2018-12-31] MEDS ORDERED: hydrALAZINE 20 MG/1 ML INJ IV ONE (07:23)
[2018-12-31 07:34] LABS: Creatine Kinase MB 3.9 ng/mL (0.0-4.0)
[2018-12-31 07:38] LABS: Alanine Aminotransferase 5 units/L (7-56); Albumin 3.5 g/dL (3.9-5)
[2018-12-31] MEDS ORDERED: MEROPENEM/NS 1 GRAM/100 ML 1 GRAM/100 ML BAG IV ONE (07:40)
--- NOTE | 2018-12-31 07:40 | Emergency Department Report ---
ED General Adult HPI - General Chief complaint: Wound/Laceration Stated complaint: BLEEDING/CLOTS Time Seen by Provider: 12/31/18 06:04 Source: patient Mode of arrival: Ambulatory Limitations: No Limitations - History of Present Illness Initial comments: This is a 43-year-old male who is a poor historian. 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 He states he has some oozing from his recent I&D for hidradenitis super T the which affects his pubic area. He also felt some moisture in his rectal area which apparently is hematochezia. He is an end-stage renal patient. He states he has refused dialysis since November 25. He still has a Vas-Cath in his right chest which appears to be in a state of poor hygiene. He tells me he is also a full code and he doesn't "need any lecturing" about his medical decision making and that his cousin works at the [employer]. Apparently, he was previously the patient of [facility] nephrology group. Otherwise he is a very poor and uncooperative historian. He complains of chronic pain which is poorly localized but affects his hidradenitis affected area. -: unknown Severity scale (0 -10): 8 Associated Symptoms: denies other symptoms - Related Data Previous Rx's Medication Instructions Recorded Last Taken Type ALBUTEROL NEB's [Proventil 0.083% 2.5 mg IH Q3HRT PRN #120 nebu 05/12/17 Unknown Rx NEBS] Amoxicillin/Potassium Clav 1 each PO BID #14 tablet 05/12/17 Unknown Rx [Augmentin 500-125 Tablet] Bisacodyl [Dulcolax suppos] 10 mg TX QDAY PRN #10 supp.rect 05/12/17 Unknown Rx Calcium Acetate/Aluminum Sulf 1 each TP TID #90 packet 05/12/17 Unknown Rx [[place] Packet] Carvedilol [Coreg] 25 mg PO Q12HR #60 tablet 05/12/17 Unknown Rx DOXYCYCLINE Hyclate [Vibramycin 100 mg PO Q12HR #14 capsule 05/12/17 Unknown Rx CAP] Doxazosin [Cardura] 2 mg PO QPM 30 Days #60 tablet 05/12/17 Unknown Rx Ferrous Sulfate [Feosol 325 MG tab] 325 mg PO BID #60 tablet 05/12/17 Unknown Rx Insulin NPH/Regular [NovoLIN 70/30] 10 unit SUB-Q BIDDIAB 30 Days #1 05/12/17 Unknown Rx vial Pravastatin [Pravachol] 20 mg PO QHS #30 tablet 05/12/17 Unknown Rx Spironolactone [Aldactone] 25 mg PO BID #60 tablet 05/12/17 Unknown Rx amLODIPine 10 mg PO QDAY #30 tablet 05/12/17 Unknown Rx hydrALAZINE [Apresoline TAB] 25 mg PO Q8HR #90 tablet 05/12/17 Unknown Rx oxyCODONE /ACETAMINOPHEN [Percocet 1 tab PO Q4H PRN #20 tablet 05/12/17 Unknown Rx 5/325 mg] Allergies Allergy/AdvReac Type Severity Reaction Status Date / Time No Known Allergies Allergy Verified 09/11/18 10:27 ED Review of Systems ROS: Stated complaint: BLEEDING/CLOTS Other details as noted in HPI Constitutional: denies: chills, fever Eyes: denies: eye pain, eye discharge, vision change ENT: denies: ear pain, throat pain Respiratory: denies: cough, shortness of breath, wheezing Cardiovascular: denies: chest pain, palpitations Endocrine: no symptoms reported Gastrointestinal: hematochezia (apparently ). denies: abdominal pain, nausea, diarrhea Genitourinary: denies: urgency, dysuria Musculoskeletal: denies: back pain, joint swelling, arthralgia Skin: denies: rash, lesions Neurological: denies: headache, weakness, paresthesias Psychiatric: denies: anxiety, depression Hematological/Lymphatic: denies: easy bleeding, easy bruising ED Past Medical Hx - Past Medical History Previous Medical History?: Yes Hx Hypertension: Yes Hx Diabetes: Yes Hx Renal Disease: Yes Additional medical history: 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 Iron deficiency anemia, hydronitis suppervera - Surgical History Past Surgical History?: Yes Additional Surgical History: eye SX 2016, sweat glands under arm - Social History Smoking Status: Never Smoker Substance Use Type: None - Medications Home Medications: Home Medications Medication Instructions Recorded Confirmed Last Taken Type ALBUTEROL NEB's [Proventil 0.083% 2.5 mg IH Q3HRT PRN #120 nebu 05/12/17 Unknown Rx NEBS] Amoxicillin/Potassium Clav 1 each PO BID #14 tablet 05/12/17 Unknown Rx [Augmentin 500-125 Tablet] Bisacodyl [Dulcolax suppos] 10 mg TX QDAY PRN #10 supp.rect 05/12/17 Unknown Rx Calcium Acetate/Aluminum Sulf 1 each TP TID #90 packet 05/12/17 Unknown Rx [[place] Packet] Carvedilol [Coreg] 25 mg PO Q12HR #60 tablet 05/12/17 Unknown Rx DOXYCYCLINE Hyclate [Vibramycin 100 mg PO Q12HR #14 capsule 05/12/17 Unknown Rx CAP] Doxazosin [Cardura] 2 mg PO QPM 30 Days #60 tablet 05/12/17 Unknown Rx Ferrous Sulfate [Feosol 325 MG tab] 325 mg PO BID #60 tablet 05/12/17 Unknown Rx Insulin NPH/Regular [NovoLIN 70/30] 10 unit SUB-Q BIDDIAB 30 Days #1 05/12/17 Unknown Rx vial Pravastatin [Pravachol] 20 mg PO QHS #30 tablet 05/12/17 Unknown Rx Spironolactone [Aldactone] 25 mg PO BID #60 tablet 05/12/17 Unknown Rx amLODIPine 10 mg PO QDAY #30 tablet 05/12/17 Unknown Rx hydrALAZINE [Apresoline TAB] 25 mg PO Q8HR #90 tablet 05/12/17 Unknown Rx oxyCODONE /ACETAMINOPHEN [Percocet 1 tab PO Q4H PRN #20 tablet 05/12/17 Unknown Rx 5/325 mg] ED Physical Exam - General Limitations: No Limitations General appearance: alert, in no apparent distress - Head Head exam: Present: atraumatic, normocephalic - Eye Eye exam: Present: normal appearance. Absent: scleral icterus - ENT ENT exam: Present: mucous membranes moist - Neck Neck exam: Present: normal inspection - Respiratory Respiratory exam: Present: normal lung sounds bilaterally. Absent: respiratory distress - Cardiovascular Cardiovascular Exam: Present: regular rate, normal rhythm. Absent: systolic murmur, diastolic murmur, rubs, gallop - GI/Abdominal GI/Abdominal exam: Present: soft, normal bowel sounds. Absent: distended, tenderness, guarding, rebound, rigid - Rectal Rectal exam: Present: other (patient has blood noted per rectum but no active bleeding.) - exam: Present: other (I&D site scrotum. Hidradenitis with some purulence.) - Extremities Exam Extremities exam: Present: normal inspection - Back Exam Back exam: Present: normal inspection - Neurological Exam Neurological exam: Present: alert, oriented X3, CN II-XII intact. Absent: motor sensory deficit - Psychiatric Psychiatric exam: Present: anxious, flat affect - Skin Skin exam: Present: warm, dry, intact, normal color. Absent: rash ED Course Vital Signs 12/31/18 12/31/18 12/31/18 02:42 03:42 03:46 Temperature 98.2 F Pulse Rate 112 H 108 H 100 H Respiratory 20 17 24 Rate Blood Pressure 218/141 233/139 Blood Pressure [Left] O2 Sat by Pulse 100 100 100 Oximetry 12/31/18 12/31/18 12/31/18 04:00 04:16 04:33 Temperature Pulse Rate 99 H 101 H 97 H Respiratory 22 18 13 Rate Blood Pressure 229/141 234/130 Blood Pressure [Left] O2 Sat by Pulse 100 100 100 Oximetry 12/31/18 12/31/18 12/31/18 04:41 04:46 05:00 Temperature Pulse Rate 101 H 98 H 99 H Respiratory 20 15 24 Rate Blood Pressure 237/138 212/131 Blood Pressure 237/116 [Left] O2 Sat by Pulse 98 100 100 Oximetry 12/31/18 12/31/18 12/31/18 05:16 05:30 05:46 Temperature Pulse Rate 99 H 100 H 100 H Respiratory 15 12 16 Rate Blood Pressure 221/132 221/126 216/134 Blood Pressure [Left] O2 Sat by Pulse 100 100 100 Oximetry 12/31/18 12/31/18 12/31/18 05:55 06:00 06:30 Temperature Pulse Rate 113 H 95 H Respiratory 20 15 20 Rate Blood Pressure 224/131 231/139 Blood Pressure [Left] O2 Sat by Pulse 100 100 Oximetry 12/31/18 12/31/18 12/31/18 07:23 07:28 07:51 Temperature Pulse Rate 84 90 100 H Respiratory 16 16 Rate Blood Pressure 218/140 Blood Pressure 206/126 161/99 [Left] O2 Sat by Pulse 96 100 Oximetry ED Medical Decision Making - Lab Data Result diagrams: 12/31/18 04:50 12/31/18 04:50 Laboratory Results - last 24 hr 12/31/18 12/31/18 12/31/18 04:50 04:50 04:50 WBC 10.3 RBC 3.71 Hgb 8.5 L Hct 26.5 L MCV 72 L MCH 23 L MCHC 32 RDW 18.9 H Plt Count 181 PT 14.0 INR 1.09 APTT 28.4 Sodium 138 Potassium 3.8 Chloride 104.0 Carbon Dioxide 20 L Anion Gap 18 BUN 41 H Creatinine 8.7 H Estimated GFR 8 BUN/Creatinine Ratio 5 Glucose 132 H Lactic Acid Calcium 8.7 Total Bilirubin AST ALT Alkaline Phosphatase CK-MB (CK-2) Troponin T NT-Pro-B Natriuret Pep Total Protein Albumin Albumin/Globulin Ratio 12/31/18 12/31/18 12/31/18 06:36 06:36 06:36 WBC RBC Hgb Hct MCV MCH MCHC RDW Plt Count PT 14.0 INR 1.09 APTT 29.2 Sodium Potassium Chloride Carbon Dioxide Anion Gap BUN Creatinine Estimated GFR BUN/Creatinine Ratio Glucose Lactic Acid 0.60 L Calcium Total Bilirubin 0.40 AST 10 ALT 5 L Alkaline Phosphatase 57 CK-MB (CK-2) 3.9 Troponin T 0.090 H NT-Pro-B Natriuret Pep 8099 H Total Protein 8.5 H Albumin 3.5 L Albumin/Globulin Ratio 0.7 - EKG Data -: EKG Interpreted by Vt EKG shows normal: sinus rhythm Rate: normal - EKG Data Interpretation: LVH, other (left axis deviation, no acute ischemic changes) - Radiology Data Radiology results: image reviewed (no acute finding) Critical care attestation.: If time is entered above; I have spent that time in minutes in the direct care of this critically ill patient, excluding procedure time. ED Disposition Clinical Impression: Malignant hypertension, Rectal bleeding, Suppurative hidradenitis Disposition: OP ADMIT IP TO THIS HOSP Is pt being admited?: Yes Does the pt Need Aspirin: No Condition: Stable Instructions: Hypertension (ED) Referrals: YOLA DE LA ROSA MD [Primary Care Provider] - 3-5 Days Time of Disposition: 08:30
[2018-12-31 07:50] LABS: LDL Cholesterol,Direct 110 mg/dL (50-130)
[2018-12-31 08:05] LABS: Chol/HDL Ratio 4.84 %; HDL Cholesterol 33 mg/dL (40-59)
[2018-12-31 08:10] LABS: Bilirubin,Direct < 0.2 mg/dL (0-0.2)
[2018-12-31 08:37] LABS: Anisocytosis 1+; Band Neutrophils # (Manual) 0.2 K/mm3; Basophils % (Manual) 0 % (0.0-1.8); Hypochromasia 1+; Total Cells Counted 100
[2018-12-31 08:38] LABS: Platelet Estimate Consistent w Auto
--- NOTE | 2018-12-31 10:56 | History and Physical Report ---
History of Present Illness Date of examination: 12/31/18 Date of admission: 12/31/18 08:32 Chief complaint: Bleeding from wounds from the rectal and groin area[hydradenitis abscesses.] History of present illness: 43-year-old -[place] male patient with significant past medical history of end-stage renal disease refused dialysis in the past still has Vas-Cath, hydradenitis, diabetes mellitus, hypertension, noncompliant with medications presented to the emergency room with worsening shortness of breath bleeding from the hydradenitis wounds both in the gluteal area and groin patient also complains of some rectal bleeding, Patient is noncompliant with medications and follow-up visits Initial evaluation is consistent with hypertensive emergency with blood p ressures more than 220, received IV antihypertensives with no significant improvement Patient denies chest pain or shortness of breath, Denies headache dizziness weakness and numbness Patient denies nausea vomiting or abdominal pain Past History Past Medical History: diabetes, ESRD, hypertension, other (hydradenitis) Past Surgical History: Other (I&D) Social history: denies: smoking, alcohol abuse, prescription drug abuse Family history: hypertension Medications and Allergies Allergies Allergy/AdvReac Type Severity Reaction Status Date / Time No Known Allergies Allergy Verified 09/11/18 10:27 Home Medications Medication Instructions Recorded Confirmed Last Taken Type Labetalol 200mg TAB 200 mg PO DAILY 12/31/18 12/31/18 Unknown History Review of Systems Constitutional: no weight loss, no weight gain, no fever, no chills Ears, nose, mouth and throat: no nasal congestion, no nasal discharge Cardiovascular: no chest pain, no orthopnea, no palpitations Respiratory: no cough with sputum, no hemoptysis Gastrointestinal: no nausea, no vomiting, no diarrhea Genitourinary Male: no dysuria, no hematuria Musculoskeletal: no neck stiffness, no neck pain Integumentary: no rash, no pruritis, no redness Neurological: no tingling, no seizures, no syncope Psychiatric: no anxiety, no depression Endocrine: no cold intolerance, no heat intolerance Hematologic/Lymphatic: no easy bruising, no easy bleeding Allergic/Immunologic: no urticaria, no allergic rhinitis Exam - Constitutional Vitals: Temp Pulse Resp BP Pulse Ox 98.2 F 92 H 16 176/105 100 12/31/18 02:42 12/31/18 10:20 12/31/18 10:20 12/31/18 10:20 12/31/18 07:51 General appearance: Present: no acute distress, well-nourished - EENT Eyes: Present: PERRL, EOM intact - Neck Neck: Present: supple, normal ROM - Respiratory Respiratory effort: normal Respiratory: bilateral: diminished, negative: rales, rhonchi, wheezing - Cardiovascular Rhythm: regular Heart Sounds: Present: S1 & S2 - Extremities Extremities: no ischemia, pulses intact - Abdominal General gastrointestinal: Present: soft, non-tender, non-distended, normal bowel sounds Male genitourinary: Present: tender (hydradenitis groin, discharging purulent material) - Integumentary Integumentary: Present: clear, warm - Musculoskeletal Musculoskeletal: strength equal bilaterally, generalized weakness - Psychiatric Psychiatric: appropriate mood/affect, cooperative - Neurologic Neurologic: CNII-XII intact, moves all extremities Results - Labs CBC & Chem 7: 12/31/18 04:50 01/01/19 05:07 Labs: Abnormal lab results 12/31/18 12/31/18 12/31/18 Range/Units 04:50 04:50 06:36 Hgb 8.5 L (11.8-15.2) gm/dl Hct 26.5 L (35.5-45.6) % MCV 72 L (84-94) fl MCH 23 L (28-32) pg RDW 18.9 H (13.2-15.2) % Seg Neuts % (Manual) 85.0 H (40.0-70.0) % Lymphocytes % (Manual) 9.0 L (13.4-35.0) % Seg Neutrophils # Man 8.8 H (1.8-7.7) K/mm3 Lymphocytes # (Manual) 0.9 L (1.2-5.4) K/mm3 Carbon Dioxide 20 L (22-30) mmol/L BUN 41 H (9-20) mg/dL Creatinine 8.7 H (0.8-1.5) mg/dL Glucose 132 H (75-100) mg/dL Lactic Acid (0.7-2.0) mmol/L ALT 5 L (7-56) units/L Total Creatine Kinase 192 H (55-170) units/L Troponin T 0.090 H (0.00-0.029) ng/mL NT-Pro-B Natriuret Pep 8099 H (0-450) pg/mL Total Protein 8.5 H (6.3-8.2) g/dL Albumin 3.5 L (3.9-5) g/dL HDL Cholesterol 33 L (40-59) mg/dL 12/31/18 Range/Units 06:36 Hgb (11.8-15.2) gm/dl Hct (35.5-45.6) % MCV (84-94) fl MCH (28-32) pg RDW (13.2-15.2) % Seg Neuts % (Manual) (40.0-70.0) % Lymphocytes % (Manual) (13.4-35.0) % Seg Neutrophils # Man (1.8-7.7) K/mm3 Lymphocytes # (Manual) (1.2-5.4) K/mm3 Carbon Dioxide (22-30) mmol/L BUN (9-20) mg/dL Creatinine (0.8-1.5) mg/dL Glucose (75-100) mg/dL Lactic Acid 0.60 L (0.7-2.0) mmol/L ALT (7-56) units/L Total Creatine Kinase (55-170) units/L Troponin T (0.00-0.029) ng/mL NT-Pro-B Natriuret Pep (0-450) pg/mL Total Protein (6.3-8.2) g/dL Albumin (3.9-5) g/dL HDL Cholesterol (40-59) mg/dL Assessment and Plan --Hypertensive emergency; Noncompliant with medications Start antihypertensives, when necessary medications Close the monitor blood pressures and adjust --Hydradenitis suppurativa; Empiric IV antibiotics, wound care Blood and wound cultures, supportive care ID consult --Type 2 DM; Accu-Chek sliding scale coverage and ADA diet Insulin as needed --Acute on CKD IV/ESRD; Patient reports he refused hemodialysis in the past Neurology consult, avoid nephrotoxins --H/O Cardiac arrest --NSTEMI 2; Probably sec to ESRD Positive troponins probably secondary to end-stage renal disease Closely monitor cardiac enzymes, cardiology consult if needed --Medical noncompliance: Patient strongly advised to comply with medications and diet follow-up visits Verbalized understanding --DVT prophylaxis; heparin renal dose
[2018-12-31] MEDS ORDERED: hydrALAZINE 20 MG/1 ML INJ IV PRN (10:57)
[2018-12-31] MEDS ORDERED: hydrALAZINE 25 MG TAB PO ONE (11:09)
[2018-12-31] MEDS ORDERED: VANCOMYCIN PHARMACY TO DOSE IV SCH (12:00)
[2018-12-31] MEDS: cloNIDine 0.1 MG TAB PO SCH ×2 (12:14→21:47)
[2018-12-31] MEDS ORDERED: CEFEPIME/NS 1 GM/100 ML 1 GM/100 ML BAG IV ONE (14:00)
[2018-12-31] MEDS ORDERED: CEFEPIME/NS 2 GM/100 ML 2 GM/100 ML BAG IV SCH (14:00)
[2018-12-31] MEDS: hydrALAZINE 25 MG TAB PO SCH ×2 (15:04→21:47)
[2018-12-31] MEDS: METOPROLOL TARTRATE 25 MG TAB PO SCH ×2 (15:05→21:47)
--- NOTE | 2018-12-31 15:46 | Consultation ---
History of Present Illness - Reason for Consult Consult date: 12/31/18 Hidradenitis suppurativa Requesting physician: SAMI NAPOLES - History of Present Illness The patient is a 43-year-old male with hidradenitis suppurativa, DM, HTN, ESRD who has not been non-compliant with dialysis since November 2018 came to the emergency room early this morning with complaints of increased drainage from his buttock lesions. He has had R axillary hidradenitis resection in the past. ID was consulted for antibiotic recommendations. Patient denies any fever or chills. Fiance is at bedside. No nausea, vomiting or diarrhea. Does not follow up with wound care clinic. Review of Systems: General: no fevers,chills or rigors HEENT: no new visual disturbance Respiratory: No cough, sputum, hemoptysis or shortness of breath Cardiovascular: No chest pain, syncope Gastrointestinal: No nausea, vomiting or diarrhea Genitourinary: No dysuria or hematuria Musculoskeletal: No new or worsening neck pain or back pain Neurologic: No headaches, seizures Hematologic: No easy bruising or bleeding Endocrine: No night sweats or acute weight loss Skin: negative for rash, jaundice Psychiatric: No suicidal or homicidal ideation Past History Past Medical History: diabetes, ESRD, hypertension, other (hydradenitis) Past Surgical History: Other (I&D) Social history: denies: smoking, alcohol abuse, prescription drug abuse Family history: hypertension Medications and Allergies Allergies Allergy/AdvReac Type Severity Reaction Status Date / Time No Known Allergies Allergy Verified 09/11/18 10:27 Home Medications Medication Instructions Recorded Confirmed Last Taken Type Labetalol 200mg TAB 200 mg PO DAILY 12/31/18 12/31/18 Unknown History Active Meds: Active Medications Clonidine HCl (Catapres) 0.1 mg PO Q8H [facility] Last Admin: 12/31/18 12:14 Dose: 0.1 mg Documented by: Heparin Sodium (Porcine) (Heparin) 5,000 unit SUB-Q Q12HR TIARA Hydralazine HCl (Apresoline) 50 mg PO Q8HR [facility] Last Admin: 12/31/18 15:04 Dose: 50 mg Documented by: Hydralazine HCl (Apresoline) 20 mg IV Q4HR PRN PRN Reason: Hypertension Cefepime HCl 0.5 gm/ Sodium (Chloride) 100 mls @ 200 mls/hr IV QPM [facility] Metoprolol Tartrate (Metoprolol) 25 mg PO BID [facility] Last Admin: 12/31/18 15:05 Dose: 25 mg Documented by: Oxycodone/Acetaminophen (Percocet 5/325) 1 tab PO Q6H PRN PRN Reason: Pain, Moderate (4-6) Physical Examination - Physical Exam Narrative exam: Physical Exam: Constitutional: Alert, cooperative. No acute distress Head, Ears, Nose: Normocephalic, atraumatic. External ears, nose normal Eyes: Conjunctivae/corneas clear. No icterus. No ptosis. Neck: Supple, no meningeal signs Cardiovascular: S1, S2 normal. Respiratory: Good air entry, clear to auscultation bilaterally GI: Soft, non-tender; bowel sounds normal. No peritoneal signs Musculoskeletal: No pedal edema, no cyanosis. R upper chest HD cath + Skin: R axillary scar + with small wound. Left axilla and b/l groin and cleft with hidradenitis suppurativa, scant foul smelling drainage Hem/Lymphatic: No palpable cervical or supraclavicular nodes. No lymphangitis Psych: Mood ok. Affect flat Neurological: Awake, alert, oriented. No gross abnormality - Constitutional Vitals: Vital Signs Temp Pulse Resp BP Pulse Ox 98.7 F 87 22 168/103 99 12/31/18 13:02 12/31/18 15:04 12/31/18 13:02 12/31/18 15:04 12/31/18 13:02 Temperature -Last 24 Hours Temperature 98.7 F Temperature 98.2 F Results - Labs CBC & Chem 7: 12/31/18 04:50 12/31/18 04:50 Labs: Abnormal lab results 12/31/18 12/31/18 12/31/18 Range/Units 04:50 04:50 06:36 Hgb 8.5 L (11.8-15.2) gm/dl Hct 26.5 L (35.5-45.6) % MCV 72 L (84-94) fl MCH 23 L (28-32) pg RDW 18.9 H (13.2-15.2) % Seg Neuts % (Manual) 85.0 H (40.0-70.0) % Lymphocytes % (Manual) 9.0 L (13.4-35.0) % Seg Neutrophils # Man 8.8 H (1.8-7.7) K/mm3 Lymphocytes # (Manual) 0.9 L (1.2-5.4) K/mm3 Carbon Dioxide 20 L (22-30) mmol/L BUN 41 H (9-20) mg/dL Creatinine 8.7 H (0.8-1.5) mg/dL Glucose 132 H (75-100) mg/dL Lactic Acid (0.7-2.0) mmol/L ALT 5 L (7-56) units/L Total Creatine Kinase 192 H (55-170) units/L Troponin T 0.090 H (0.00-0.029) ng/mL NT-Pro-B Natriuret Pep 8099 H (0-450) pg/mL Total Protein 8.5 H (6.3-8.2) g/dL Albumin 3.5 L (3.9-5) g/dL HDL Cholesterol 33 L (40-59) mg/dL 12/31/18 Range/Units 06:36 Hgb (11.8-15.2) gm/dl Hct (35.5-45.6) % MCV (84-94) fl MCH (28-32) pg RDW (13.2-15.2) % Seg Neuts % (Manual) (40.0-70.0) % Lymphocytes % (Manual) (13.4-35.0) % Seg Neutrophils # Man (1.8-7.7) K/mm3 Lymphocytes # (Manual) (1.2-5.4) K/mm3 Carbon Dioxide (22-30) mmol/L BUN (9-20) mg/dL Creatinine (0.8-1.5) mg/dL Glucose (75-100) mg/dL Lactic Acid 0.60 L (0.7-2.0) mmol/L ALT (7-56) units/L Total Creatine Kinase (55-170) units/L Troponin T (0.00-0.029) ng/mL NT-Pro-B Natriuret Pep (0-450) pg/mL Total Protein (6.3-8.2) g/dL Albumin (3.9-5) g/dL HDL Cholesterol (40-59) mg/dL - Imaging and Cardiology Chest x-ray: report reviewed, image reviewed (no pneumonia) Assessment and Plan Cultures: 12/31/2018 blood culture: In process 12/31/2018 groin wound culture: In process A/P: 43-year-old male with hidradenitis suppurativa, DM, HTN, ESRD who has not been non-compliant with dialysis since November 2018 came to the emergency room with increased drainage from his buttock lesions: 1) Hidradenitis suppuritiva: no fever or leucocytosis. Has increased drainage and pain. culture already collected in ER. Recommend short course of abx. Prolonged abx unlikely to be of much benefit. 2) ESRD: refusing HD. dose abx accordingly 3) DM-2 Recs: Treat with empiric IV cefepime and vancomycin given previous history of MRSA, short course of abx. Renally dose abx. Patient is refusing dialysis Wound care consider consulting Dr. Lu (patient has seen him in the past), patient is interested in definitive treatment with resection of the hidradenitis. Although if he continues to refuse dialysis, his prognosis is poor. James Gamez MD, FACP [facility] ([facility] C: [phone] O: [phone] F: [phone]
--- NOTE | 2018-12-31 16:17 | Consultation ---
History of Present Illness - Reason for Consult Consult date: 12/31/18 chronic renal failure - History of Present Illness This is a 43 year old man with CKD who presents with concerns for hidradenitis. He has been an ESRD patient who follows with Dr. Salazar in [place], and used to dialyze at a unit there. However, he has stopped dialysis since November 25 (unclear why). He still has a Vas-Cath in his right chest and wants to get it taken out. He notes that he lives in this area and does not want to travel all the way to [facility] for his kidney care. He notes good urine output and states that he had a 24 hour urine collection done, but is not sure of the results. He denies any acute issues, including edema, shortness of breath, nausea, vomiting, chest pain. Denies any uremic symptoms. States that he thinks he is done with dialysis. Past History Past Medical History: diabetes, ESRD, hypertension, other (hydradenitis) Past Surgical History: Other (I&D) Social history: denies: smoking, alcohol abuse, prescription drug abuse Family history: hypertension Medications and Allergies Allergies Allergy/AdvReac Type Severity Reaction Status Date / Time No Known Allergies Allergy Verified 09/11/18 10:27 Home Medications Medication Instructions Recorded Confirmed Last Taken Type Labetalol 200mg TAB 200 mg PO DAILY 12/31/18 12/31/18 Unknown History Active Meds: Active Medications Clonidine HCl (Catapres) 0.1 mg PO Q8H [facility] Last Admin: 12/31/18 12:14 Dose: 0.1 mg Documented by: Heparin Sodium (Porcine) (Heparin) 5,000 unit SUB-Q Q12HR [facility] Hydralazine HCl (Apresoline) 50 mg PO Q8HR [facility] Last Admin: 12/31/18 15:04 Dose: 50 mg Documented by: Hydralazine HCl (Apresoline) 20 mg IV Q4HR PRN PRN Reason: Hypertension Cefepime HCl 0.5 gm/ Sodium (Chloride) 100 mls @ 200 mls/hr IV QPM [facility] Metoprolol Tartrate (Metoprolol) 25 mg PO BID [facility] Last Admin: 12/31/18 15:05 Dose: 25 mg Documented by: Oxycodone/Acetaminophen (Percocet 5/325) 1 tab PO Q6H PRN PRN Reason: Pain, Moderate (4-6) Review of Systems All systems: negative (as per HPI) Constitutional: no fatigue, no weakness Ears, nose, mouth and throat: no ear pain Cardiovascular: no chest pain, no edema, no dyspnea on exertion Respiratory: no cough, no congestion Gastrointestinal: no abdominal pain, no nausea, no vomiting, no loss of appetite Musculoskeletal: no arthritis Integumentary: no rash Neurological: no weakness, no parathesias Psychiatric: no anxiety Exam - Vital Signs Vital signs: Vital Signs Temp Pulse Resp BP Pulse Ox 98.2 F 112 H 20 218/141 100 12/31/18 02:42 12/31/18 02:42 12/31/18 02:42 12/31/18 02:42 12/31/18 02:42 - General Appearance General appearance: well-developed, well-nourished, appears stated age EENT: PERRL, mucous membranes moist Neck: Present: neck supple, trachea midline. Absent: JVD/HJR, Masses Respiratory: Clear to Ascultation Heart: regular, normal heart rate, S1S2, no murmurs Gastrointestinal: Present: normal. Absent: tenderness, distended, masses, guarding Integumentary: no rash, warm and dry Neurologic: no focal deficit (CVC noted with poor hygiene), alert and oriented x3, gait normal, strength 5/5 Results - Lab Results 12/31/18 04:50 12/31/18 04:50 Most recent lab results Calcium 8.7 mg/dL (8.4-10.2) 12/31/18 04:50 Assessment and Plan This is a 43 year old man with ESRD previously on HD, not dialyzed in over one month, who presents with hidradenitis. # CKD 5/ESRD: No clear indications for acute dialysis although unclear of residual renal function. 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 Given current creatinine, suspect he would need renal replacement therapy in near future - will perform 24 hour urine clearance to assess residual function - based on results, will consider catheter removal vs exchange - will follow up with patient in our clinic after discharge per his preference - daily renal function panel # Anemia: likely anemia secondary to CKD - may benefit from ESAs, will check iron studies # HTN: BP above goal. Continue current regimen for now, may benefit from high dose diuretic although not currently volume overloaded # Acidosis: will start sodium bicarbonate for goal HCO3 >22 # BMD: will check PTH, phosphorus Thank you for this consult. We will continue to follow closely with you. Please do not hesitate to call me on my cell at [phone] with questions.
[2018-12-31 20:22] LABS: Hepatitis B Surface Antigen Non-Reactive (Negative); Hepatitis C Virus Antibody Non-Reactive (NonReactive)
[2018-12-31] MEDS: oxyCODONE /ACETAMINOPHEN 5-325MG TAB PO PRN (21:46)
[2018-12-31] MEDS: HEPARIN 5,000 UNIT/1 ML VIAL SUB-Q SCH (21:48)
[2018-12-31 21:49] LABS: Creatinine,Urine 135.9 mg/dL (0.1-20.0)
[2019-01-01] MEDS: hydrALAZINE 25 MG TAB PO SCH ×3 (05:22→21:07)
[2019-01-01] MEDS: oxyCODONE /ACETAMINOPHEN 5-325MG TAB PO PRN (05:23)
[2019-01-01] MEDS: cloNIDine 0.1 MG TAB PO SCH ×3 (05:23→20:55)
[2019-01-01 07:03] LABS: BUN/Creatinine Ratio 5; Blood Urea Nitrogen 43 mg/dL (9-20); Calcium 8.1 mg/dL (8.4-10.2); Hemolysis Index 0
[2019-01-01 07:50] LABS: Iron 34 ug/dL (49-181)
[2019-01-01 08:36] LABS: Total Iron Binding Capacity -667 mcg/dL (250-450)
[2019-01-01] MEDS: METOPROLOL TARTRATE 25 MG TAB PO SCH ×2 (10:17→21:08)
[2019-01-01] MEDS: HEPARIN 5,000 UNIT/1 ML VIAL SUB-Q SCH ×2 (10:17→21:01)
--- NOTE | 2019-01-01 17:55 | Progress Note ---
Assessment and Plan Assessment and plan: --Hydradenitis suppurativa; Empiric IV antibiotics, wound care Blood and wound cultures, supportive care ID consult --Type 2 DM; Accu-Chek sliding scale coverage and ADA diet Insulin as needed --Hypertensive emergency; Noncompliant with medications Start antihypertensives, when necessary medications Close the monitor blood pressures and adjust --Acute on CKD IV/ESRD; Patient reports he refused hemodialysis in the past Neurology consult, avoid nephrotoxins --H/O Cardiac arrest --NSTEMI 2; Probably sec to ESRD Positive troponins probably secondary to end-stage renal disease Closely monitor cardiac enzymes, cardiology consult if needed --Medical noncompliance: Patient strongly advised to comply with medications and diet follow-up visits Verbalized understanding --DVT prophylaxis; heparin renal dose History Interval history: Patient seen and examined medical records reviewed No new complaints vital signs noted Hospitalist Physical - Constitutional Vitals: Temp Pulse Resp BP Pulse Ox 97.9 F 84 18 118/75 97 01/01/19 12:04 01/01/19 12:04 01/01/19 12:04 01/01/19 12:04 01/01/19 12:04 General appearance: Present: no acute distress, well-nourished - EENT Eyes: Present: PERRL, EOM intact - Neck Neck: Present: supple, normal ROM - Respiratory Respiratory effort: normal Respiratory: right: rales, bilateral: diminished, negative: rhonchi, wheezing - Extremities Extremities: no ischemia Extremity abnormal: edema - Abdominal General gastrointestinal: soft, non-tender, non-distended, normal bowel sounds - Integumentary Integumentary: Present: clear, warm - Neurologic Neurologic: CNII-XII intact, moves all extremities Results - Labs CBC & Chem 7: 12/31/18 04:50 01/01/19 05:07 Labs: Laboratory Last Values WBC 10.3 K/mm3 (4.5-11.0) 12/31/18 04:50 RBC 3.71 M/mm3 (3.65-5.03) 12/31/18 04:50 Hgb 8.5 gm/dl (11.8-15.2) L 12/31/18 04:50 Hct 26.5 % (35.5-45.6) L 12/31/18 04:50 MCV 72 fl (84-94) L 12/31/18 04:50 MCH 23 pg (28-32) L 12/31/18 04:50 MCHC 32 % (32-34) 12/31/18 04:50 RDW 18.9 % (13.2-15.2) H 12/31/18 04:50 Plt Count 181 K/mm3 (140-440) 12/31/18 04:50 Add Manual Diff Complete 12/31/18 04:50 Total Counted 100 12/31/18 04:50 Seg Neuts % (Manual) 85.0 % (40.0-70.0) H 12/31/18 04:50 Band Neutrophils % 2.0 % 12/31/18 04:50 Lymphocytes % (Manual) 9.0 % (13.4-35.0) L 12/31/18 04:50 Reactive Lymphs % (Man) 0 % 12/31/18 04:50 Monocytes % (Manual) 2.0 % (0.0-7.3) 12/31/18 04:50 Eosinophils % (Manual) 2.0 % (0.0-4.3) 12/31/18 04:50 Basophils % (Manual) 0 % (0.0-1.8) 12/31/18 04:50 Metamyelocytes % 0 % 12/31/18 04:50 Myelocytes % 0 % 12/31/18 04:50 Promyelocytes % 0 % 12/31/18 04:50 Blast Cells % 0 % 12/31/18 04:50 Nucleated RBC % Not Reportable 12/31/18 04:50 Seg Neutrophils # Man 8.8 K/mm3 (1.8-7.7) H 12/31/18 04:50 Band Neutrophils # 0.2 K/mm3 12/31/18 04:50 Lymphocytes # (Manual) 0.9 K/mm3 (1.2-5.4) L 12/31/18 04:50 Abs React Lymphs (Man) 0.0 K/mm3 12/31/18 04:50 Monocytes # (Manual) 0.2 K/mm3 (0.0-0.8) 12/31/18 04:50 Eosinophils # (Manual) 0.2 K/mm3 (0.0-0.4) 12/31/18 04:50 Basophils # (Manual) 0.0 K/mm3 (0.0-0.1) 12/31/18 04:50 Metamyelocytes # 0.0 K/mm3 12/31/18 04:50 Myelocytes # 0.0 K/mm3 12/31/18 04:50 Promyelocytes # 0.0 K/mm3 12/31/18 04:50 Blast Cells # 0.0 K/mm3 12/31/18 04:50 WBC Morphology Not Reportable 12/31/18 04:50 Hypersegmented Neuts Not Reportable 12/31/18 04:50 Hyposegmented Neuts Not Reportable 12/31/18 04:50 Hypogranular Neuts Not Reportable 12/31/18 04:50 Smudge Cells Not Reportable 12/31/18 04:50 Toxic Granulation Not Reportable 12/31/18 04:50 Toxic Vacuolation Not Reportable 12/31/18 04:50 Dohle Bodies Not Reportable 12/31/18 04:50 Pelger-Huet Anomaly Not Reportable 12/31/18 04:50 Sonya Rods Not Reportable 12/31/18 04:50 Platelet Estimate Consistent w auto 12/31/18 04:50 Clumped Platelets Not Reportable 12/31/18 04:50 Plt Clumps, EDTA Not Reportable 12/31/18 04:50 Large Platelets Not Reportable 12/31/18 04:50 Giant Platelets Not Reportable 12/31/18 04:50 Platelet Satelliting Not Reportable 12/31/18 04:50 Plt Morphology Comment Not Reportable 12/31/18 04:50 RBC Morphology Not Reportable 12/31/18 04:50 Dimorphic RBCs Not Reportable 12/31/18 04:50 Polychromasia Not Reportable 12/31/18 04:50 Hypochromasia 1+ 12/31/18 04:50 Poikilocytosis Not Reportable 12/31/18 04:50 Anisocytosis 1+ 12/31/18 04:50 Microcytosis 1+ 12/31/18 04:50 Macrocytosis Not Reportable 12/31/18 04:50 Spherocytes Not Reportable 12/31/18 04:50 Pappenheimer Bodies Not Reportable 12/31/18 04:50 Sickle Cells Not Reportable 12/31/18 04:50 Target Cells Not Reportable 12/31/18 04:50 Tear Drop Cells Not Reportable 12/31/18 04:50 Ovalocytes Not Reportable 12/31/18 04:50 Helmet Cells Not Reportable 12/31/18 04:50 Brian-Kell Bodies Not Reportable 12/31/18 04:50 [place] Rings Not Reportable 12/31/18 04:50 Joey Cells Not Reportable 12/31/18 04:50 Bite Cells Not Reportable 12/31/18 04:50 Crenated Cell Not Reportable 12/31/18 04:50 Elliptocytes Not Reportable 12/31/18 04:50 Acanthocytes (Spur) Not Reportable 12/31/18 04:50 Rouleaux Not Reportable 12/31/18 04:50 Hemoglobin C Crystals Not Reportable 12/31/18 04:50 Schistocytes Not Reportable 12/31/18 04:50 Malaria parasites Not Reportable 12/31/18 04:50 Eliseo Bodies Not Reportable 12/31/18 04:50 Hem Pathologist Commnt No 12/31/18 04:50 PT 14.0 Sec. (12.2-14.9) 12/31/18 06:36 INR 1.09 (0.87-1.13) 12/31/18 06:36 APTT 29.2 Sec. (24.2-36.6) 12/31/18 06:36 Sodium 137 mmol/L (137-145) 01/01/19 05:07 Potassium 3.6 mmol/L (3.6-5.0) 01/01/19 05:07 Chloride 104.9 mmol/L (98-107) 01/01/19 05:07 Carbon Dioxide 18 mmol/L (22-30) L 01/01/19 05:07 Anion Gap 18 mmol/L 01/01/19 05:07 BUN 43 mg/dL (9-20) H 01/01/19 05:07 Creatinine 9.2 mg/dL (0.8-1.5) H 01/01/19 05:07 Estimated GFR 8 ml/min 01/01/19 05:07 BUN/Creatinine Ratio 5 % 01/01/19 05:07 Glucose 91 mg/dL (75-100) 01/01/19 05:07 Lactic Acid 0.60 mmol/L (0.7-2.0) L 12/31/18 06:36 Calcium 8.1 mg/dL (8.4-10.2) L 01/01/19 05:07 Phosphorus 4.10 mg/dL (2.5-4.5) 01/01/19 05:07 Iron 34 ug/dL (49-181) L 01/01/19 05:07 TIBC -667 mcg/dL (250-450) L 01/01/19 05:07 Ferritin 582.0 ng/mL (13.0-400.0) H 01/01/19 05:07 Total Bilirubin 0.40 mg/dL (0.1-1.2) 12/31/18 06:36 Direct Bilirubin < 0.2 mg/dL (0-0.2) 12/31/18 06:36 Indirect Bilirubin 0.2 mg/dL 12/31/18 06:36 AST 10 units/L (5-40) 12/31/18 06:36 ALT 5 units/L (7-56) L 12/31/18 06:36 Alkaline Phosphatase 57 units/L (35-129) 12/31/18 06:36 Total Creatine Kinase 192 units/L (55-170) H 12/31/18 06:36 CK-MB (CK-2) 3.9 ng/mL (0.0-4.0) 12/31/18 06:36 CK-MB (CK-2) Rel Index 2.0 (0-4) 12/31/18 06:36 Troponin T 0.090 ng/mL (0.00-0.029) H 12/31/18 06:36 NT-Pro-B Natriuret Pep 8099 pg/mL (0-450) H 12/31/18 06:36 Total Protein 8.5 g/dL (6.3-8.2) H 12/31/18 06:36 Albumin 3.5 g/dL (3.9-5) L 12/31/18 06:36 Albumin/Globulin Ratio 0.7 % 12/31/18 06:36 Triglycerides 127 mg/dL (2-149) 12/31/18 06:36 Cholesterol 160 mg/dL (50-199) 12/31/18 06:36 LDL Cholesterol Direct 110 mg/dL (50-130) 12/31/18 06:36 HDL Cholesterol 33 mg/dL (40-59) L 12/31/18 06:36 Cholesterol/HDL Ratio 4.84 % 12/31/18 06:36 Urine Creatinine 135.9 mg/dL (0.1-20.0) H 12/31/18 Unknown Random Vancomycin 22.4 ug/mL (0-40.0) 01/01/19 12:46 Hepatitis A IgM Ab Non-reactive (NonReactive) 12/31/18 11:56 Hep Bs Antigen Non-reactive (Negative) 12/31/18 11:56 Hep B Core IgM Ab Non-reactive (NonReactive) 12/31/18 11:56 Hepatitis C Antibody Non-reactive (NonReactive) 12/31/18 11:56 Blood Type O POSITIVE 12/31/18 06:36 Antibody Screen Negative 12/31/18 06:36 Active Medications - Current Medications Current Medications: Generic Name Dose Route Start Last Admin Trade Name Freq PRN Reason Stop Dose Admin Clonidine HCl 0.1 mg 12/31/18 12:00 01/01/19 12:00 Catapres PO 0.1 mg Q8H [facility] Administration Heparin Sodium (Porcine) 5,000 unit 12/31/18 22:00 01/01/19 10:17 Heparin SUB-Q 5,000 unit Q12HR [facility] Administration Hydralazine HCl 50 mg 12/31/18 14:00 01/01/19 14:20 Apresoline PO 50 mg Q8HR [facility] Administration Hydralazine HCl 20 mg 12/31/18 10:57 Apresoline IV Q4HR PRN Hypertension Cefepime HCl 0.5 gm/ Sodium 100 mls @ 200 mls/hr 01/01/19 18:00 Chloride IV QPM [facility] Metoprolol Tartrate 25 mg 12/31/18 14:00 01/01/19 10:17 Metoprolol PO 25 mg BID [facility] Administration Oxycodone/Acetaminophen 1 tab 12/31/18 11:05 01/01/19 05:23 Percocet 5/325 PO 1 tab Q6H PRN Administration Pain, Moderate (4-6)
[2019-01-01] MEDS: CEFEPIME 0.5 GM in SODIUM CHLORIDE 0.9% 100 ML IV SCH (18:00)
--- NOTE | 2019-01-01 18:08 | Progress Note ---
Assessment and Plan This is a 43 year old man with ESRD previously on HD, not dialyzed in over one month, who presents with hidradenitis. # CKD 5/ESRD: No clear indications for acute dialysis although unclear of residual renal function. 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 Given current creatinine (and slight increase today), suspect he would need renal replacement therapy in near future - will follow up 24 hour urine clearance to assess residual function - based on results, will consider catheter removal vs exchange - will follow up with patient in our clinic after discharge per his preference - daily renal function panel # Anemia: likely anemia secondary to CKD. Iron low but ferritin elevated likely from chronic inflammation - may benefit from ESAs, will follow up labs from above # HTN: BP at goal on current regimen # Acidosis: continue sodium bicarbonate for goal HCO3 >22 # BMD: will check PTH, phosphorus Thank you for this consult. We will continue to follow closely with you. Please do not hesitate to call me on my cell at [phone] with questions. Subjective Date of service: 01/01/19 Principal diagnosis: chronic kidney disease Interval history: No acute events noted overnight. Notes ongoing urination that is normal. No dyspnea, no swelling noted. No chest pain. Notes good appetite, no nausea, vomiting. Objective - Exam Narrative Exam: General appearance: well-developed, well-nourished, appears stated age EENT: PERRL, mucous membranes moist Neck: Present: neck supple, trachea midline Respiratory: Clear to Auscultation Heart: regular, normal heart rate, S1S2, no murmurs Gastrointestinal: Present: normal. Absent: tenderness, distended Integumentary: no rash, warm and dry Neurologic: no focal deficit (CVC noted with poor hygiene), alert and oriented x3, gait normal, strength 5/5 - Vital Signs Vital signs: Vital Signs - 12hr 01/01/19 01/01/19 01/01/19 06:23 12:04 17:15 Temperature 97.9 F 98.4 F Pulse Rate 84 80 Respiratory 18 18 18 Rate Blood Pressure 118/75 120/69 O2 Sat by Pulse 97 98 Oximetry - Lab 12/31/18 04:50 01/01/19 05:07 Most recent lab results Calcium 8.1 mg/dL (8.4-10.2) L 01/01/19 05:07 Phosphorus 4.10 mg/dL (2.5-4.5) 01/01/19 05:07 Urine Creatinine 135.9 mg/dL (0.1-20.0) H 12/31/18 Unknown Medications & Allergies - Medications Allergies/Adverse Reactions: Allergies No Known Allergies Allergy (Verified 09/11/18 10:27) Home Medications: Home Medications Medication Instructions Recorded Confirmed Last Taken Type Labetalol 200mg TAB 200 mg PO DAILY 12/31/18 12/31/18 Unknown History Active Medications: Generic Name Dose Route Start Last Admin Trade Name Freq PRN Reason Stop Dose Admin Clonidine HCl 0.1 mg 12/31/18 12:00 01/01/19 12:00 Catapres PO 0.1 mg Q8H [facility] Administration Heparin Sodium (Porcine) 5,000 unit 12/31/18 22:00 01/01/19 10:17 Heparin SUB-Q 5,000 unit Q12HR [facility] Administration Hydralazine HCl 50 mg 12/31/18 14:00 01/01/19 14:20 Apresoline PO 50 mg Q8HR [facility] Administration Hydralazine HCl 20 mg 12/31/18 10:57 Apresoline IV Q4HR PRN Hypertension Cefepime HCl 0.5 gm/ Sodium 100 mls @ 200 mls/hr 01/01/19 18:00 Chloride IV QPM [facility] Metoprolol Tartrate 25 mg 12/31/18 14:00 01/01/19 10:17 Metoprolol PO 25 mg BID [facility] Administration Oxycodone/Acetaminophen 1 tab 12/31/18 11:05 01/01/19 05:23 Percocet 5/325 PO 1 tab Q6H PRN Administration Pain, Moderate (4-6)
[2019-01-01 23:14] LABS: Creatinine 24 Hour,Urine 0.8 (0.8-2.8); Creatinine,Urine 165.7 mg/dL (0.1-20.0)
[2019-01-01 23:32] LABS: Protein/Creatinine Ratio,Urine 2.38
[2019-01-02] MEDS: hydrALAZINE 25 MG TAB PO SCH ×3 (05:46→23:24)
[2019-01-02] MEDS: cloNIDine 0.1 MG TAB PO SCH ×3 (05:47→20:46)
[2019-01-02] MEDS: HEPARIN 5,000 UNIT/1 ML VIAL SUB-Q SCH ×2 (09:24→23:25)
[2019-01-02] MEDS: METOPROLOL TARTRATE 25 MG TAB PO SCH ×2 (09:24→23:25)
--- NOTE | 2019-01-02 09:41 | Progress Note ---
Assessment and Plan Assessment and plan: --Hydradenitis suppurativa; Empiric IV antibiotics, wound care Blood and wound cultures, supportive care ID consult --Type 2 DM; Accu-Chek sliding scale coverage and ADA diet Insulin as needed --Hypertensive emergency; Noncompliant with medications Start antihypertensives, when necessary medications Close the monitor blood pressures and adjust --Acute on CKD IV/ESRD; Patient reports he refused hemodialysis in the past Neurology consult, avoid nephrotoxins --H/O Cardiac arrest --NSTEMI 2; Probably sec to ESRD Positive troponins probably secondary to end-stage renal disease Closely monitor cardiac enzymes, cardiology consult if needed --Medical noncompliance: Patient strongly advised to comply with medications and diet follow-up visits Verbalized understanding --DVT prophylaxis; heparin renal dose Disposition per nephrology Possible discharge tomorrow with home health versus outpatient wound care If cleared by nephrology History Interval history: Patient seen and examined and medical records reviewed Patient feels better no new complaints Receiving wound care and IV antibiotics for his hydradenitis Worsening renal function, nephrology following Patient not in acute distress Vital signs noted Hospitalist Physical - Constitutional Vitals: Temp Pulse Resp BP Pulse Ox 98.0 F 88 18 144/82 100 01/02/19 05:02 01/02/19 05:47 01/02/19 05:02 01/02/19 09:24 01/02/19 05:02 General appearance: Present: no acute distress, well-nourished, obese - EENT Eyes: Present: PERRL, EOM intact - Neck Neck: Present: supple, normal ROM - Respiratory Respiratory effort: normal Respiratory: bilateral: diminished, negative: rales, rhonchi, wheezing - Cardiovascular Rhythm: regular Heart Sounds: Present: S1 & S2 - Extremities Extremities: no ischemia, No edema - Abdominal General gastrointestinal: soft, non-tender, non-distended, normal bowel sounds - Integumentary Integumentary: Present: clear, warm - Psychiatric Psychiatric: appropriate mood/affect, cooperative - Neurologic Neurologic: CNII-XII intact, moves all extremities Results - Labs CBC & Chem 7: 12/31/18 04:50 01/02/19 00:22 Labs: Laboratory Last Values WBC 10.3 K/mm3 (4.5-11.0) 12/31/18 04:50 RBC 3.71 M/mm3 (3.65-5.03) 12/31/18 04:50 Hgb 8.5 gm/dl (11.8-15.2) L 12/31/18 04:50 Hct 26.5 % (35.5-45.6) L 12/31/18 04:50 MCV 72 fl (84-94) L 12/31/18 04:50 MCH 23 pg (28-32) L 12/31/18 04:50 MCHC 32 % (32-34) 12/31/18 04:50 RDW 18.9 % (13.2-15.2) H 12/31/18 04:50 Plt Count 181 K/mm3 (140-440) 12/31/18 04:50 Add Manual Diff Complete 12/31/18 04:50 Total Counted 100 12/31/18 04:50 Seg Neuts % (Manual) 85.0 % (40.0-70.0) H 12/31/18 04:50 Band Neutrophils % 2.0 % 12/31/18 04:50 Lymphocytes % (Manual) 9.0 % (13.4-35.0) L 12/31/18 04:50 Reactive Lymphs % (Man) 0 % 12/31/18 04:50 Monocytes % (Manual) 2.0 % (0.0-7.3) 12/31/18 04:50 Eosinophils % (Manual) 2.0 % (0.0-4.3) 12/31/18 04:50 Basophils % (Manual) 0 % (0.0-1.8) 12/31/18 04:50 Metamyelocytes % 0 % 12/31/18 04:50 Myelocytes % 0 % 12/31/18 04:50 Promyelocytes % 0 % 12/31/18 04:50 Blast Cells % 0 % 12/31/18 04:50 Nucleated RBC % Not Reportable 12/31/18 04:50 Seg Neutrophils # Man 8.8 K/mm3 (1.8-7.7) H 12/31/18 04:50 Band Neutrophils # 0.2 K/mm3 12/31/18 04:50 Lymphocytes # (Manual) 0.9 K/mm3 (1.2-5.4) L 12/31/18 04:50 Abs React Lymphs (Man) 0.0 K/mm3 12/31/18 04:50 Monocytes # (Manual) 0.2 K/mm3 (0.0-0.8) 12/31/18 04:50 Eosinophils # (Manual) 0.2 K/mm3 (0.0-0.4) 12/31/18 04:50 Basophils # (Manual) 0.0 K/mm3 (0.0-0.1) 12/31/18 04:50 Metamyelocytes # 0.0 K/mm3 12/31/18 04:50 Myelocytes # 0.0 K/mm3 12/31/18 04:50 Promyelocytes # 0.0 K/mm3 12/31/18 04:50 Blast Cells # 0.0 K/mm3 12/31/18 04:50 WBC Morphology Not Reportable 12/31/18 04:50 Hypersegmented Neuts Not Reportable 12/31/18 04:50 Hyposegmented Neuts Not Reportable 12/31/18 04:50 Hypogranular Neuts Not Reportable 12/31/18 04:50 Smudge Cells Not Reportable 12/31/18 04:50 Toxic Granulation Not Reportable 12/31/18 04:50 Toxic Vacuolation Not Reportable 12/31/18 04:50 Dohle Bodies Not Reportable 12/31/18 04:50 Pelger-Huet Anomaly Not Reportable 12/31/18 04:50 Sonya Rods Not Reportable 12/31/18 04:50 Platelet Estimate Consistent w auto 12/31/18 04:50 Clumped Platelets Not Reportable 12/31/18 04:50 Plt Clumps, EDTA Not Reportable 12/31/18 04:50 Large Platelets Not Reportable 12/31/18 04:50 Giant Platelets Not Reportable 12/31/18 04:50 Platelet Satelliting Not Reportable 12/31/18 04:50 Plt Morphology Comment Not Reportable 12/31/18 04:50 RBC Morphology Not Reportable 12/31/18 04:50 Dimorphic RBCs Not Reportable 12/31/18 04:50 Polychromasia Not Reportable 12/31/18 04:50 Hypochromasia 1+ 12/31/18 04:50 Poikilocytosis Not Reportable 12/31/18 04:50 Anisocytosis 1+ 12/31/18 04:50 Microcytosis 1+ 12/31/18 04:50 Macrocytosis Not Reportable 12/31/18 04:50 Spherocytes Not Reportable 12/31/18 04:50 Pappenheimer Bodies Not Reportable 12/31/18 04:50 Sickle Cells Not Reportable 12/31/18 04:50 Target Cells Not Reportable 12/31/18 04:50 Tear Drop Cells Not Reportable 12/31/18 04:50 Ovalocytes Not Reportable 12/31/18 04:50 Helmet Cells Not Reportable 12/31/18 04:50 Brian[place] Bodies Not Reportable 12/31/18 04:50 [place] Rings Not Reportable 12/31/18 04:50 Joey Cells Not Reportable 12/31/18 04:50 Bite Cells Not Reportable 12/31/18 04:50 Crenated Cell Not Reportable 12/31/18 04:50 Elliptocytes Not Reportable 12/31/18 04:50 Acanthocytes (Spur) Not Reportable 12/31/18 04:50 Rouleaux Not Reportable 12/31/18 04:50 Hemoglobin C Crystals Not Reportable 12/31/18 04:50 Schistocytes Not Reportable 12/31/18 04:50 Malaria parasites Not Reportable 12/31/18 04:50 Eliseo Bodies Not Reportable 12/31/18 04:50 Hem Pathologist Commnt No 12/31/18 04:50 PT 14.0 Sec. (12.2-14.9) 12/31/18 06:36 INR 1.09 (0.87-1.13) 12/31/18 06:36 APTT 29.2 Sec. (24.2-36.6) 12/31/18 06:36 Sodium 135 mmol/L (137-145) L 01/02/19 00:22 Potassium 3.4 mmol/L (3.6-5.0) L 01/02/19 00:22 Chloride 106.8 mmol/L (98-107) 01/02/19 00:22 Carbon Dioxide 20 mmol/L (22-30) L 01/02/19 00:22 Anion Gap 12 mmol/L 01/02/19 00:22 BUN 50 mg/dL (9-20) H 01/02/19 00:22 Creatinine 10.1 mg/dL (0.8-1.5) H 01/02/19 00:22 Estimated GFR 7 ml/min 01/02/19 00:22 BUN/Creatinine Ratio 5 % 01/02/19 00:22 Glucose 91 mg/dL (75-100) 01/02/19 00:22 Lactic Acid 0.60 mmol/L (0.7-2.0) L 12/31/18 06:36 Calcium 8.0 mg/dL (8.4-10.2) L 01/02/19 00:22 Phosphorus 4.10 mg/dL (2.5-4.5) 01/01/19 05:07 Iron 34 ug/dL (49-181) L 01/01/19 05:07 TIBC -667 mcg/dL (250-450) L 01/01/19 05:07 Ferritin 582.0 ng/mL (13.0-400.0) H 01/01/19 05:07 Total Bilirubin 0.40 mg/dL (0.1-1.2) 12/31/18 06:36 Direct Bilirubin < 0.2 mg/dL (0-0.2) 12/31/18 06:36 Indirect Bilirubin 0.2 mg/dL 12/31/18 06:36 AST 10 units/L (5-40) 12/31/18 06:36 ALT 5 units/L (7-56) L 12/31/18 06:36 Alkaline Phosphatase 57 units/L (35-129) 12/31/18 06:36 Total Creatine Kinase 192 units/L (55-170) H 12/31/18 06:36 CK-MB (CK-2) 3.9 ng/mL (0.0-4.0) 12/31/18 06:36 CK-MB (CK-2) Rel Index 2.0 (0-4) 12/31/18 06:36 Troponin T 0.090 ng/mL (0.00-0.029) H 12/31/18 06:36 NT-Pro-B Natriuret Pep 8099 pg/mL (0-450) H 12/31/18 06:36 Total Protein 8.5 g/dL (6.3-8.2) H 12/31/18 06:36 Albumin 3.5 g/dL (3.9-5) L 12/31/18 06:36 Albumin/Globulin Ratio 0.7 % 12/31/18 06:36 Triglycerides 127 mg/dL (2-149) 12/31/18 06:36 Cholesterol 160 mg/dL (50-199) 12/31/18 06:36 LDL Cholesterol Direct 110 mg/dL (50-130) 12/31/18 06:36 HDL Cholesterol 33 mg/dL (40-59) L 12/31/18 06:36 Cholesterol/HDL Ratio 4.84 % 12/31/18 06:36 PTH Intact 313.1 pg/mL (15-65) H 01/02/19 04:26 Urine Total Volume 500 ml 01/01/19 Unknown Urine Creatinine 165.7 mg/dL (0.1-20.0) H 01/01/19 Unknown Ur Creatinine 24 Hour 0.8 (0.8-2.8) 01/01/19 Unknown Protein/Creatinin Ratio 2.38 01/01/19 Unknown Urine Total Protein 394 mg/dL (5-11.8) H 01/01/19 Unknown Random Vancomycin 22.4 ug/mL (0-40.0) 01/01/19 12:46 Hepatitis A IgM Ab Non-reactive (NonReactive) 12/31/18 11:56 Hep Bs Antigen Non-reactive (Negative) 12/31/18 11:56 Hep B Core IgM Ab Non-reactive (NonReactive) 12/31/18 11:56 Hepatitis C Antibody Non-reactive (NonReactive) 12/31/18 11:56 Blood Type O POSITIVE 12/31/18 06:36 Antibody Screen Negative 12/31/18 06:36 Active Medications - Current Medications Current Medications: Generic Name Dose Route Start Last Admin Trade Name Freq PRN Reason Stop Dose Admin Clonidine HCl 0.1 mg 12/31/18 12:00 01/02/19 05:47 Catapres PO 0.1 mg Q8H TIARA Administration Heparin Sodium (Porcine) 5,000 unit 12/31/18 22:00 01/02/19 09:24 Heparin SUB-Q 5,000 unit Q12HR TIARA Administration Hydralazine HCl 50 mg 12/31/18 14:00 01/02/19 05:46 Apresoline PO 50 mg Q8HR TIARA Administration Hydralazine HCl 20 mg 12/31/18 10:57 Apresoline IV Q4HR PRN Hypertension Cefepime HCl 0.5 gm/ Sodium 100 mls @ 200 mls/hr 01/01/19 18:00 01/01/19 18:00 Chloride IV 200 mls/hr QPM TIARA Administration Metoprolol Tartrate 25 mg 12/31/18 14:00 01/02/19 09:24 Metoprolol PO 25 mg BID TIARA Administration Oxycodone/Acetaminophen 1 tab 12/31/18 11:05 01/01/19 05:23 Percocet 5/325 PO 1 tab Q6H PRN Administration Pain, Moderate (4-6)
--- NOTE | 2019-01-02 13:10 | Progress Note ---
Assessment and Plan This is a 43 year old man with ESRD previously on HD, not dialyzed in over one month, who presents with hidradenitis. # CKD 5/ESRD: No clear indications for acute dialysis although unclear of residual renal function. 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 Given current creatinine (and slight increase again today), suspect he would need renal replacement therapy in near future - will follow up 24 hour urine clearance to assess residual function - based on results, will consider catheter removal vs exchange - have discussed at length with patient that he will likely need senior care dialysis and although he has no indications currently, he may need in very near future and would be unsafe to leave hospital without good dialysis planning - will follow up with patient in our clinic after discharge per his preference (previously followed in [facility]) - daily renal function panel # Anemia: likely anemia secondary to CKD. Iron low but ferritin elevated likely from chronic inflammation - may benefit from ESAs, will follow up labs from above # HTN: BP at goal on current regimen # Acidosis: continue sodium bicarbonate for goal HCO3 >22 # BMD: will check PTH, phosphorus Thank you for this consult. We will continue to follow closely with you. Please do not hesitate to call me on my cell at [phone] with questions. Subjective Date of service: 01/02/19 Principal diagnosis: chronic kidney disease Interval history: No acute events noted overnight. Notes ongoing urination that is normal. No dyspnea, no swelling noted. No chest pain. Notes good appetite, no nausea, vomiting. Completed 24 hour urine collection yesterday Objective - Exam Narrative Exam: General appearance: well-developed, well-nourished, appears stated age EENT: PERRL, mucous membranes moist Neck: Present: neck supple, trachea midline Respiratory: Clear to Auscultation Heart: regular, normal heart rate, S1S2, no murmurs Gastrointestinal: Present: normal. Absent: tenderness, distended Integumentary: no rash, warm and dry Neurologic: no focal deficit (CVC noted with poor hygiene), alert and oriented x3, gait normal, strength 5/5 - Vital Signs Vital signs: Vital Signs - 12hr 01/02/19 01/02/19 01/02/19 05:02 05:46 05:47 Temperature 98.0 F Pulse Rate 83 88 88 Respiratory 18 Rate Blood Pressure 152/86 157/86 157/86 O2 Sat by Pulse 100 Oximetry 01/02/19 01/02/19 01/02/19 09:24 11:11 12:22 Temperature 98.0 F Pulse Rate 89 83 Respiratory 16 Rate Blood Pressure 144/82 137/74 134/74 O2 Sat by Pulse 99 98 Oximetry - Lab 12/31/18 04:50 01/02/19 00:22 Most recent lab results Calcium 8.0 mg/dL (8.4-10.2) L 01/02/19 00:22 Phosphorus 4.10 mg/dL (2.5-4.5) 01/01/19 05:07 Urine Creatinine 165.7 mg/dL (0.1-20.0) H 01/01/19 Unknown Urine Total Protein 394 mg/dL (5-11.8) H 01/01/19 Unknown Medications & Allergies - Medications Allergies/Adverse Reactions: Allergies No Known Allergies Allergy (Verified 09/11/18 10:27) Home Medications: Home Medications Medication Instructions Recorded Confirmed Last Taken Type Labetalol 200mg TAB 200 mg PO DAILY 12/31/18 12/31/18 Unknown History Active Medications: Generic Name Dose Route Start Last Admin Trade Name Freq PRN Reason Stop Dose Admin Clonidine HCl 0.1 mg 12/31/18 12:00 01/02/19 12:22 Catapres PO 0.1 mg Q8H TIARA Administration Heparin Sodium (Porcine) 5,000 unit 12/31/18 22:00 01/02/19 09:24 Heparin SUB-Q 5,000 unit Q12HR TIARA Administration Hydralazine HCl 50 mg 12/31/18 14:00 01/02/19 05:46 Apresoline PO 50 mg Q8HR TIARA Administration Hydralazine HCl 20 mg 12/31/18 10:57 Apresoline IV Q4HR PRN Hypertension Cefepime HCl 0.5 gm/ Sodium 100 mls @ 200 mls/hr 01/01/19 18:00 01/01/19 18:00 Chloride IV 200 mls/hr QPM TIARA Administration Metoprolol Tartrate 25 mg 12/31/18 14:00 01/02/19 09:24 Metoprolol PO 25 mg BID TIARA Administration Oxycodone/Acetaminophen 1 tab 12/31/18 11:05 01/01/19 05:23 Percocet 5/325 PO 1 tab Q6H PRN Administration Pain, Moderate (4-6)
[2019-01-02] MEDS: oxyCODONE /ACETAMINOPHEN 5-325MG TAB PO PRN (15:03)
[2019-01-02] MEDS: CEFEPIME 0.5 GM in SODIUM CHLORIDE 0.9% 100 ML IV SCH (17:41)
[2019-01-03 02:17] LABS: Calcium 8.1 mg/dL (8.4-10.2)
[2019-01-03] MEDS: cloNIDine 0.1 MG TAB PO SCH (04:18)
[2019-01-03 05:29] LABS: Hematocrit 23.7 % (35.5-45.6); Hemoglobin 7.6 gm/dl (11.8-15.2); Mean Corpuscular HGB Conc 32 % (32-34); Mean Corpuscular Volume 71 fl (84-94); Platelet Count 201 K/mm3 (140-440); Red Blood Count 3.36 M/mm3 (3.65-5.03); Red Cell Distribution Width 18.8 % (13.2-15.2)
[2019-01-03 05:52] LABS: Calcium 8.2 mg/dL (8.4-10.2)
[2019-01-03 06:55] LABS: Total Cells Counted 100
[2019-01-03 06:56] LABS: Basophils % (Manual) 0 % (0.0-1.8)
[2019-01-03 07:05] LABS: Anisocytosis 1+; Macrocytosis Few
[2019-01-03 07:06] LABS: Hypochromasia Few; Platelet Estimate Consistent w Auto
[2019-01-03] MEDS: hydrALAZINE 25 MG TAB PO SCH (07:30)
--- NOTE | 2019-01-03 08:03 | Progress Note ---
Hospitalist Physical - Constitutional Vitals: Temp Pulse Resp BP Pulse Ox 97.8 F 81 18 156/89 100 01/03/19 04:33 01/03/19 04:33 01/03/19 04:33 01/03/19 04:33 01/03/19 04:33 General appearance: Present: no acute distress, well-nourished Results - Labs CBC & Chem 7: 01/03/19 05:00 01/03/19 05:00 Labs: Laboratory Last Values WBC 7.9 K/mm3 (4.5-11.0) 01/03/19 05:00 RBC 3.36 M/mm3 (3.65-5.03) L 01/03/19 05:00 Hgb 7.6 gm/dl (11.8-15.2) L 01/03/19 05:00 Hct 23.7 % (35.5-45.6) L 01/03/19 05:00 MCV 71 fl (84-94) L 01/03/19 05:00 MCH 23 pg (28-32) L 01/03/19 05:00 MCHC 32 % (32-34) 01/03/19 05:00 RDW 18.8 % (13.2-15.2) H 01/03/19 05:00 Plt Count 201 K/mm3 (140-440) 01/03/19 05:00 Add Manual Diff Complete 01/03/19 05:00 Total Counted 100 01/03/19 05:00 Seg Neuts % (Manual) 77.0 % (40.0-70.0) H 01/03/19 05:00 Band Neutrophils % 0 % 01/03/19 05:00 Lymphocytes % (Manual) 17.0 % (13.4-35.0) 01/03/19 05:00 Reactive Lymphs % (Man) 0 % 01/03/19 05:00 Monocytes % (Manual) 1.0 % (0.0-7.3) 01/03/19 05:00 Eosinophils % (Manual) 5.0 % (0.0-4.3) H 01/03/19 05:00 Basophils % (Manual) 0 % (0.0-1.8) 01/03/19 05:00 Metamyelocytes % 0 % 01/03/19 05:00 Myelocytes % 0 % 01/03/19 05:00 Promyelocytes % 0 % 01/03/19 05:00 Blast Cells % 0 % 01/03/19 05:00 Nucleated RBC % Not Reportable 01/03/19 05:00 Seg Neutrophils # Man 6.1 K/mm3 (1.8-7.7) 01/03/19 05:00 Band Neutrophils # 0.0 K/mm3 01/03/19 05:00 Lymphocytes # (Manual) 1.3 K/mm3 (1.2-5.4) 01/03/19 05:00 Abs React Lymphs (Man) 0.0 K/mm3 01/03/19 05:00 Monocytes # (Manual) 0.1 K/mm3 (0.0-0.8) 01/03/19 05:00 Eosinophils # (Manual) 0.4 K/mm3 (0.0-0.4) 01/03/19 05:00 Basophils # (Manual) 0.0 K/mm3 (0.0-0.1) 01/03/19 05:00 Metamyelocytes # 0.0 K/mm3 01/03/19 05:00 Myelocytes # 0.0 K/mm3 01/03/19 05:00 Promyelocytes # 0.0 K/mm3 01/03/19 05:00 Blast Cells # 0.0 K/mm3 01/03/19 05:00 WBC Morphology Not Reportable 01/03/19 05:00 Hypersegmented Neuts Not Reportable 01/03/19 05:00 Hyposegmented Neuts Not Reportable 01/03/19 05:00 Hypogranular Neuts Not Reportable 01/03/19 05:00 Smudge Cells Not Reportable 01/03/19 05:00 Toxic Granulation Not Reportable 01/03/19 05:00 Toxic Vacuolation Not Reportable 01/03/19 05:00 Dohle Bodies Not Reportable 01/03/19 05:00 Pelger-Huet Anomaly Not Reportable 01/03/19 05:00 Sonya Rods Not Reportable 01/03/19 05:00 Platelet Estimate Consistent w auto 01/03/19 05:00 Clumped Platelets Not Reportable 01/03/19 05:00 Plt Clumps, EDTA Not Reportable 01/03/19 05:00 Large Platelets Not Reportable 01/03/19 05:00 Giant Platelets Not Reportable 01/03/19 05:00 Platelet Satelliting Not Reportable 01/03/19 05:00 Plt Morphology Comment Not Reportable 01/03/19 05:00 RBC Morphology Not Reportable 01/03/19 05:00 Dimorphic RBCs Not Reportable 01/03/19 05:00 Polychromasia Not Reportable 01/03/19 05:00 Hypochromasia Few 01/03/19 05:00 Poikilocytosis Not Reportable 01/03/19 05:00 Anisocytosis 1+ 01/03/19 05:00 Microcytosis Few 01/03/19 05:00 Macrocytosis Few 01/03/19 05:00 Spherocytes Not Reportable 01/03/19 05:00 Pappenheimer Bodies Not Reportable 01/03/19 05:00 Sickle Cells Not Reportable 01/03/19 05:00 Target Cells Not Reportable 01/03/19 05:00 Tear Drop Cells Not Reportable 01/03/19 05:00 Ovalocytes Not Reportable 01/03/19 05:00 Helmet Cells Not Reportable 01/03/19 05:00 [place] Bodies Not Reportable 01/03/19 05:00 [place] Rings Not Reportable 01/03/19 05:00 Joey Cells Not Reportable 01/03/19 05:00 Bite Cells Not Reportable 01/03/19 05:00 Crenated Cell Not Reportable 01/03/19 05:00 Elliptocytes Not Reportable 01/03/19 05:00 Acanthocytes (Spur) Not Reportable 01/03/19 05:00 Rouleaux Not Reportable 01/03/19 05:00 Hemoglobin C Crystals Not Reportable 01/03/19 05:00 Schistocytes Not Reportable 01/03/19 05:00 Malaria parasites Not Reportable 01/03/19 05:00 Eliseo Bodies Not Reportable 01/03/19 05:00 Hem Pathologist Commnt No 01/03/19 05:00 PT 14.0 Sec. (12.2-14.9) 12/31/18 06:36 INR 1.09 (0.87-1.13) 12/31/18 06:36 APTT 29.2 Sec. (24.2-36.6) 12/31/18 06:36 Sodium 138 mmol/L (137-145) 01/03/19 05:00 Potassium 3.6 mmol/L (3.6-5.0) 01/03/19 05:00 Chloride 105.8 mmol/L (98-107) 01/03/19 05:00 Carbon Dioxide 17 mmol/L (22-30) L 01/03/19 05:00 Anion Gap 19 mmol/L 01/03/19 05:00 BUN 54 mg/dL (9-20) H 01/03/19 05:00 Creatinine 10.2 mg/dL (0.8-1.5) H 01/03/19 05:00 Estimated GFR 7 ml/min 01/03/19 05:00 BUN/Creatinine Ratio 5 % 01/03/19 05:00 Glucose 108 mg/dL (75-100) H 01/03/19 05:00 Lactic Acid 0.60 mmol/L (0.7-2.0) L 12/31/18 06:36 Calcium 8.2 mg/dL (8.4-10.2) L 01/03/19 05:00 Phosphorus 4.10 mg/dL (2.5-4.5) 01/01/19 05:07 Iron 34 ug/dL (49-181) L 01/01/19 05:07 TIBC -667 mcg/dL (250-450) L 01/01/19 05:07 Ferritin 582.0 ng/mL (13.0-400.0) H 01/01/19 05:07 Total Bilirubin 0.40 mg/dL (0.1-1.2) 12/31/18 06:36 Direct Bilirubin < 0.2 mg/dL (0-0.2) 12/31/18 06:36 Indirect Bilirubin 0.2 mg/dL 12/31/18 06:36 AST 10 units/L (5-40) 12/31/18 06:36 ALT 5 units/L (7-56) L 12/31/18 06:36 Alkaline Phosphatase 57 units/L (35-129) 12/31/18 06:36 Total Creatine Kinase 192 units/L (55-170) H 12/31/18 06:36 CK-MB (CK-2) 3.9 ng/mL (0.0-4.0) 12/31/18 06:36 CK-MB (CK-2) Rel Index 2.0 (0-4) 12/31/18 06:36 Troponin T 0.090 ng/mL (0.00-0.029) H 12/31/18 06:36 NT-Pro-B Natriuret Pep 8099 pg/mL (0-450) H 12/31/18 06:36 Total Protein 8.5 g/dL (6.3-8.2) H 12/31/18 06:36 Albumin 3.5 g/dL (3.9-5) L 12/31/18 06:36 Albumin/Globulin Ratio 0.7 % 12/31/18 06:36 Triglycerides 127 mg/dL (2-149) 12/31/18 06:36 Cholesterol 160 mg/dL (50-199) 12/31/18 06:36 LDL Cholesterol Direct 110 mg/dL (50-130) 12/31/18 06:36 HDL Cholesterol 33 mg/dL (40-59) L 12/31/18 06:36 Cholesterol/HDL Ratio 4.84 % 12/31/18 06:36 PTH Intact 313.1 pg/mL (15-65) H 01/02/19 04:26 Urine Total Volume 500 ml 01/01/19 Unknown Urine Creatinine 165.7 mg/dL (0.1-20.0) H 01/01/19 Unknown Ur Creatinine 24 Hour 0.8 (0.8-2.8) 01/01/19 Unknown Protein/Creatinin Ratio 2.38 01/01/19 Unknown Urine Total Protein 394 mg/dL (5-11.8) H 01/01/19 Unknown Random Vancomycin 22.4 ug/mL (0-40.0) 01/01/19 12:46 Hepatitis A IgM Ab Non-reactive (NonReactive) 12/31/18 11:56 Hep Bs Antigen Non-reactive (Negative) 12/31/18 11:56 Hep B Core IgM Ab Non-reactive (NonReactive) 12/31/18 11:56 Hepatitis C Antibody Non-reactive (NonReactive) 12/31/18 11:56 Blood Type O POSITIVE 12/31/18 06:36 Antibody Screen Negative 12/31/18 06:36 Active Medications - Current Medications Current Medications: Generic Name Dose Route Start Last Admin Trade Name Freq PRN Reason Stop Dose Admin Clonidine HCl 0.1 mg 12/31/18 12:00 01/03/19 04:18 Catapres PO Not Given Q8H TIARA Heparin Sodium (Porcine) 5,000 unit 12/31/18 22:00 01/02/19 23:25 Heparin SUB-Q 5,000 unit Q12HR TIARA Administration Hydralazine HCl 50 mg 12/31/18 14:00 01/03/19 07:30 Apresoline PO Not Given Q8HR [facility] Hydralazine HCl 20 mg 12/31/18 10:57 Apresoline IV Q4HR PRN Hypertension Cefepime HCl 0.5 gm/ Sodium 100 mls @ 200 mls/hr 01/01/19 18:00 01/02/19 17:41 Chloride IV 200 mls/hr QPM TIARA Administration Metoprolol Tartrate 25 mg 12/31/18 14:00 01/02/19 23:25 Metoprolol PO 25 mg BID TIARA Administration Oxycodone/Acetaminophen 1 tab 12/31/18 11:05 01/02/19 15:03 Percocet 5/325 PO 1 tab Q6H PRN Administration Pain, Moderate (4-6)
[2019-01-03] MEDS: HEPARIN 5,000 UNIT/1 ML VIAL SUB-Q SCH (09:21)
[2019-01-03] MEDS: METOPROLOL TARTRATE 25 MG TAB PO SCH (09:21)
--- NOTE | 2019-01-03 12:29 | Discharge Summary ---
Providers - Providers Date of Admission: 12/31/18 08:32 Date of discharge: 01/03/19 Attending physician: SAMI NAPOLES 12/31/18 10:59 Consult to Physician [CONS] Routine Comment: Consulting Provider: SAM RUIZ Physician Instructions: Reason For Exam: Ac on CKD /ESRD 12/31/18 11:00 Consult to Wound/ET Nurse [CONS] Routine Reason For Exam: wound eval 12/31/18 14:21 Consult to Physician [CONS] Routine Comment: Consulting Provider: ARIEL AARON Physician Instructions: Reason For Exam: Hydradenitis suppurativa Primary care physician: YOLA DE LA ROSA MD Hospitalization Reason for admission: Worsening shortness ,rectal wound bleeding Condition: Stable Pertinent studies: CXR Hospital course: 43-year-old -[place] male patient with significant past medical history of end-stage renal disease refused dialysis in the past still has Vas-Cath, hyd radenitis, diabetes mellitus, hypertension, noncompliant with medications presented to the emergency room with worsening shortness of breath bleeding from the hydradenitis wounds both in the gluteal area and groin patient also complains of some rectal bleeding, Patient is noncompliant with medications and follow-up visits. Initial evaluation is consistent with hypertensive emergency with blood pressures more than 220, received IV antihypertensives and multiple antihypertensives.with significant improvement.Received wound care and emperic antibiotics.Advise out pt wound care. Evaluated by personal driver ,patient refused HD. Today patient is comfortable,no new complaints,vital signs stable. Cleared by nephrology and ID for discharge and f/u for further management. Patient is stable at discharge. Discharge Diagnosis --Hydradenitis suppurativa; Empiric IV antibiotics, wound care Blood and wound cultures, supportive care ID consult --Type 2 DM; Accu-Chek sliding scale coverage and ADA diet Insulin as needed --Hypertensive emergency; Noncompliant with medications antihypertensives, when necessary medications Stable blood pressures and adjust --Acute on CKD IV/ESRD; Patient reports he refused hemodialysis in the past Neurology consult, avoid nephrotoxins --H/O Cardiac arrest --NSTEMI 2; Probably sec to ESRD Positive troponins probably secondary to end-stage renal disease Closely monitor cardiac enzymes, cardiology consult if needed --Medical noncompliance: Patient strongly advised to comply with medications and diet follow-up visits Verbalized understanding --DVT prophylaxis; heparin renal dose Cleared by renal and ID DC home, out pt wound care f.u Renal,surg per schedue. Stable at Discharge. Disposition: DC-01 TO HOME OR SELFCARE Time spent for discharge: 32 min Core Measure Documentation - Palliative Care Palliative Care/ Comfort Measures: Not Applicable - Core Measures Any of the following diagnoses?: none Exam - Constitutional Vitals: Temp Pulse Resp BP Pulse Ox 97.8 F 81 18 156/89 100 01/03/19 04:33 01/03/19 09:21 01/03/19 04:33 01/03/19 09:21 01/03/19 04:33 General appearance: Present: no acute distress, well-nourished - EENT Eyes: Present: PERRL, EOM intact - Neck Neck: Present: supple, normal ROM - Respiratory Respiratory effort: normal Respiratory: negative: rales, rhonchi, wheezing - Cardiovascular Rhythm: regular Heart Sounds: Present: S1 & S2 - Extremities Extremities: no ischemia, No edema - Abdominal General gastrointestinal: Present: soft, non-tender, normal bowel sounds - Integumentary Integumentary: Present: clear, warm - Musculoskeletal Musculoskeletal: strength equal bilaterally - Psychiatric Psychiatric: appropriate mood/affect, cooperative - Neurologic Neurologic: moves all extremities, other (legally blind) Plan Activity: advance as tolerated, fall precautions Diet: renal Additional Instructions: Outpatient wound care. Follow up with nephrology within 1 week Follow up with: YOLA DE LA ROSA MD [Primary Care Provider] - 3-5 Days AMADOR MAYORGA MD [Staff Physician] - 7 Days GRANT CORONADO MD [Staff Physician] - 7 Days Prescriptions: hydrALAZINE [Apresoline TAB] 50 mg PO Q8HR #90 tablet cloNIDine [Catapres] 0.1 mg PO BID #60 tablet Clindamycin [Clindamycin CAP] 300 mg PO Q6H #20 capsule Metoprolol [Lopressor TAB] 25 mg PO BID #60 tablet
[2019-01-03 12:39] VITALS: BP 173/92
--- NOTE | 2019-01-03 14:12 | Progress Note ---
Assessment and Plan 12/31/2018 blood culture: In process 12/31/2018 groin wound culture: In process A/P: 43-year-old male with hidradenitis suppurativa, DM, HTN, ESRD who has not been non-compliant with dialysis since November 2018 came to the emergency room with increased drainage from his buttock lesions: 1) Hidradenitis suppuritiva: no fever or leucocytosis. Has increased drainage and pain. culture already collected in ER. Recommend short course of abx. Prolonged abx unlikely to be of much benefit. 2) ESRD: refusing HD. dose abx accordingly 3) DM-2 Recs: Ok to discharge to complete 5 further days of clindamycin 450mg q8h or 300mg q6h Wound care consider consulting Dr. Lu (patient has seen him in the past), patient is interested in definitive treatment with resection of the hidradenitis. Although if he continues to refuse dialysis, his prognosis is poor. Jackie Ventura MD [facility] ([facility]) M: [phone] O: [phone] F: [phone] Subjective Date of service: 01/03/19 Principal diagnosis: chronic kidney disease Interval history: No acute change. Afebrile, normal white count. Objective - Exam Narrative Exam: Constitutional: Alert, cooperative. No acute distress Head, Ears, Nose: Normocephalic, atraumatic. External ears, nose normal Eyes: Conjunctivae/corneas clear. No icterus. No ptosis. Neck: Supple, no meningeal signs Oral: dentition fair, no thrush Cardiovascular: S1, S2 normal. Respiratory: Good air entry, clear to auscultation bilaterally GI: Soft, non-tender; bowel sounds normal. No peritoneal signs. Musculoskeletal: No pedal edema, no cyanosis. Skin: Sacral and perineal wounds Hem/Lymphatic: No palpable cervical or supraclavicular nodes. No lymphangitis Psych: Mood ok. Affect normal Neurological: Awake, alert, oriented. No gross abnormality - Constitutional Vitals: Vital Signs Temp Pulse Resp BP Pulse Ox 98.2 F 81 20 173/92 96 01/03/19 12:03 01/03/19 12:03 01/03/19 12:03 01/03/19 12:03 01/03/19 12:03 Temperature -Last 24 Hours Temperature 98.2 F Temperature 97.8 F Temperature 98.0 F Temperature 98.1 F - Labs CBC & Chem 7: 01/03/19 05:00 01/03/19 05:00 Labs: Abnormal lab results 01/03/19 01/03/19 01/03/19 Range/Units 01:16 05:00 05:00 RBC 3.36 L (3.65-5.03) M/mm3 Hgb 7.6 L (11.8-15.2) gm/dl Hct 23.7 L (35.5-45.6) % MCV 71 L (84-94) fl MCH 23 L (28-32) pg RDW 18.8 H (13.2-15.2) % Seg Neuts % (Manual) 77.0 H (40.0-70.0) % Eosinophils % (Manual) 5.0 H (0.0-4.3) % Carbon Dioxide 19 L 17 L (22-30) mmol/L BUN 53 H 54 H (9-20) mg/dL Creatinine 10.1 H 10.2 H (0.8-1.5) mg/dL Glucose 136 H 108 H (75-100) mg/dL Calcium 8.1 L 8.2 L (8.4-10.2) mg/dL
--- NOTE | 2019-01-03 18:08 | Progress Note ---
Assessment and Plan Assessment: * End stage renal disease on IHD followed by Dr. Horn * Medical noncompliance * Hidradenitis suppurative * Anemia secondary to ESRD Plan: * Lengthy discussion today re: results of 24h urine CrCl. Advised patient that his clearance is only appx 5ml/min and I recommend that he resume dialysis. Patient refuses (of note, he has a long standing history of refusal of medical recommendations). He reports that he felt worse when he was receiving dialysis. He states that he wishes to manage ESRD with holisitc treatment. 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 Offered a second opinion. Patient reports that he has obtained second opinions in the past. * Patient requests removal of permcath - advised patient to follow up with Dr. Horn * Dose medications for renal function * Avoid potential nephrotoxins * Advised follow up w/ Dr. Horn - patient reports that he plans to see him following discharge Subjective Date of service: 01/03/19 Principal diagnosis: chronic kidney disease Interval history: Patient seen in the AM. He has no complaints today. Objective - Vital Signs Vital signs: Vital Signs - 12hr 01/03/19 01/03/19 01/03/19 09:21 10:00 12:03 Temperature 98.2 F Pulse Rate 81 81 Respiratory 20 20 Rate Blood Pressure 156/89 173/92 O2 Sat by Pulse 96 Oximetry - General Appearance General appearance: well-developed, well-nourished EENT: ATNC Neck: no JVD Respiratory: Present: Clear to Ascultation Cardiology: regular, S1S2 Gastrointestinal: normal, no tenderness, no distended Psychiatric: cooperative - Lab 01/03/19 05:00 01/03/19 05:00 Most recent lab results Calcium 8.2 mg/dL (8.4-10.2) L 01/03/19 05:00 Phosphorus 4.10 mg/dL (2.5-4.5) 01/01/19 05:07 Urine Creatinine 165.7 mg/dL (0.1-20.0) H 01/01/19 Unknown Urine Total Protein 394 mg/dL (5-11.8) H 01/01/19 Unknown Medications & Allergies - Medications Allergies/Adverse Reactions: Allergies No Known Allergies Allergy (Verified 07/06/19 10:27) Home Medications: Home Medications Medication Instructions Recorded Confirmed Last Taken Type Clindamycin [Clindamycin CAP] 300 mg PO Q6H #20 capsule 01/03/19 Unknown Rx Metoprolol [Lopressor TAB] 25 mg PO BID #60 tablet 01/03/19 Unknown Rx cloNIDine [Catapres] 0.1 mg PO BID #60 tablet 01/03/19 Unknown Rx hydrALAZINE [Apresoline TAB] 50 mg PO Q8HR #90 tablet 01/03/19 Unknown Rx
== END 2019-01-03 15:00 | disposition home or self-care (01) | DRG 280 ==
LOC: ED 02:35 → IMCU 08:32 → 3A 11:47
PROVIDERS: ADMIT Internal Medicine; ATTEND Internal Medicine
DX: I21.A1 Myocardial infarction type 2 (principal); N18.6 End stage renal disease; N17.9 Acute kidney failure, unspecified; I12.0 Hypertensive chronic kidney disease with stage 5 chronic kidney disease or end stage renal disease; I16.1 Hypertensive emergency; E87.2 Acidosis; L73.2 Hidradenitis suppurativa; D63.1 Anemia in chronic kidney disease; E11.22 Type 2 diabetes mellitus with diabetic chronic kidney disease; Z91.14 Patient's other noncompliance with medication regimen; Z79.899 Other long term (current) drug therapy; Z82.49 Family history of ischemic heart disease and other diseases of the circulatory system
CPT/HCPCS: 36415; 71045; 80048; 80061; 80074; 80076; 80202; 82140; 82550; 82553; 82565; 82570; 82575; 82728; 82962; 83550; 83880; 83970; 84100; 84156; 84484; 85007; 85025; 85610; 85730; 86850; 86900; 86901; 87040; 87116; 93005; 93010; 96374; 96375; G0378; J0360; J0692; J1644; J2185; J2270; J2405; J3370

== ENCOUNTER 2021-06-28 09:33 | Emergency (ER) | payer MEDICARE ==
[2021-06-28 09:46] VITALS: BP 168/92
== END 2021-06-28 10:17 | disposition left against medical advice (07) ==
LOC: ED 09:33
DX: Z00.00 Encounter for general adult medical examination without abnormal findings (principal); Z53.21 Procedure and treatment not carried out due to patient leaving prior to being seen by health care provider